=== PATIENT | male | born 1960 | race Caucasian/White ===

== ENCOUNTER 2021-12-01 09:00 | Inpatient (IN) | payer SELFPAY ==
[2021-12-01 09:00] VITALS: BMI 27.4
[2021-12-01 09:39] VITALS: BP 176/99; PULSE 97; RESP 18; TEMP 36.7; O2SAT 96
[2021-12-01 14:00] VITALS: BP 167/89; PULSE 83; RESP 18; TEMP 36.8; O2SAT 97
[2021-12-01 20:28] VITALS: BP 188/104; PULSE 83; RESP 17; O2SAT 97
[2021-12-02 06:00] VITALS: BP 189/97; PULSE 65; RESP 16; O2SAT 96
--- NOTE | 2021-12-02 07:50 | P.NPUHP_ITS ---
Providers/Chief Complaint Admitting Physician: Zach Mosley MD HPI NPU History of Present Illness Darci Ruiz is a 61 year old male who was admitted to an outside emergency department with the following report: Patient is a 61-year-old male with past medical history of depression presenting for suicidal ideation.? He says that he has been depressed for quite a while, at least since his passed last year.? She was on the hospice for an extended period before passing and he had a very difficult time with this.? He was told by the hospice staff that he needed care for his depression at the time but declined.? He has since lost his house and [place] and has been homeless, since coming to [place] where he is waiting on possible housing but keeps getting declined.? He has never had suicidal attempt before but does endorse suicidal ideation thoughts but never wanted to act on them like now.? Says his decreased has been talking to him recently and telling him not to hurt himself, she told him to come in today for help.? He says if he cannot get help feeling better he plans to walk into traffic, wait till I is green and then be like a deer or dog that runs into the highway .? He says that he wants to be with his and believes that if he does this he will get to hold her again. He was admitted to the neuropsychiatry unit for definitive treatment of these issues. He reports he has been depressed starting when his was put in the hospice program last September. She had cirrhosis of the liver, probably from drinking too much alcohol. They had been for 25 years but had lived together even before that. He has been increasingly depressed since she in December of last year. He continued to live in the same apartment up until about 2 months ago when he could not take it anymore and moved to [place] where he has been living in a [employer] [facility] for the last 2 months. He says that he can afford an apartment but he has not been able to find one. He gets a monthly check but has not applied for Medicaid because he does not feel that he needs it. He is willing to apply now. During that time living in the apartment he was smoking marijuana daily and drinking about 30 beers per day. When he moved to [place] he cut the alcohol to about 2 beers per day and has only smoked marijuana about 3 times in the last 2 months. He does have a medical marijuana card. He has been having thoughts of killing himself so that he could be with his . He talks with his periodically. She has told him lately that he should not kill himself. He has been talking with the dado operator at the [employer] and earlier this week he asked him to consider whether or not he would really go to [facility] if he killed himself. He had not really thought about that but knows that that is the [employer] teasing that if you kill yourself he would go to [facility]. He said that got him very depressed and he got intoxicated and that is when he was having more thoughts of actually killing himself. He says his thoughts are not that strong when he is not drunk. He denies prior psychiatric treatment. He refused when people in the hospice program recommended it to him last year. He has all of the symptoms of depression. He has low self-esteem, decreased concentration, irritability, hopelessness, helplessness, worthlessness, decreased appetite, decreased sleep, increased guilt and decreased energy and motivation. He agreed to start some Lexapro. He wants to go and live with his brother for a few days and then go to [place] where he believes that he can get an apartment. He is willing to get therapy. Meds NPU Home Medications Medication Instructions Recorded Confirmed Last Taken Type No Known Home Medications 12/01/21 12/01/21 Unknown History Allergies Allergy/AdvReac Type Severity Reaction Status Date / Time No Known Allergies Allergy Verified 12/01/21 11:14 Mental Status Exam MSE Comments: This is a 61-year-old overweight male who appears approximately his stated age and is in no acute distress. He has a full franklin and is fairly groomed in hospital scrubs. Eye contact was poor. He was pleasant and cooperative with the evaluation psychomotor activity mildly decreased. Speech is at a regular rate and rhythm, normal volume, good articulation, not pressured. Alert, oriented X3 Attention and concentration appears to be good. Memory is intact Mood is depressed. Affect is moderately dysphoric. Thought process is logical and goal-directed. Thought content: Denies auditory and visual hallucinations. No delusions or paranoia are noted. No current suicidal ideation but has had significant suicidal ideation very recently. He had a plan to wait until I read his screen and go into traffic hoping to be hit. He denies homicidal ideation. Fund of knowledge is average. Insight and judgment appear to be fair. Impulse control is poor. Vitals/I&O/Wt Last Vital Signs Temp 98.2 F 12/01/21 14:00 Pulse 65 12/02/21 06:00 Resp 16 12/02/21 06:00 BP 189/97 12/02/21 06:00 Pulse Ox 96 12/02/21 06:00 Weight last 48 hrs Weight 77.111 kg A&P Assessment and plan (1) Alcohol abuse: Status: Acute (2) Marijuana abuse: Status: Acute (3) Major depressive disorder: Status: Acute (4) Suicidal ideation: Status: Acute Plan This is a 61-year-old male with worsening depression since his last December alcohol and marijuana abuse and recent suicidal statements with a plan Plan: 1. Start Lexapro 10 mg daily and standard as needed medications. 2. Continue every 15 minute checks for safety. 3. Encourage individual, group and milieu therapies. 4. Encourage sober living treatment after discharge at the highest level of care to which he is willing to commit. 5. We will monitor for safety for himself in the community prior to discharge. Involuntary Hold Information 96 Hour Hold: 96 Hour Involuntary Admission: No Attestations NPU Medical Necessity Statement*: Inpatient hospitalization is medically necessary and the clinically appropriate intervention at this time. We will initiate medications and make changes as indicated. He will be in the hospital for over 2 midnights. Likely length of stay 4-6 days Coding Level of Care Code Acute Licensed Prosthetist for [employer] [facility] Diagnoses Alcohol abuse F10.10 Marijuana abuse F12.10 Major depressive disorder F32.9 Suicidal ideation R45.853
[2021-12-02] MEDS: lisinopril 10 mg Tablet PO (09:16)
[2021-12-02 09:59] VITALS: BP 155/94; PULSE 83
[2021-12-02 14:00] VITALS: BP 118/92; PULSE 89; RESP 16; TEMP 36.8; O2SAT 97
[2021-12-02 20:28] VITALS: BP 145/89; PULSE 110; RESP 20; TEMP 36.6; O2SAT 96
[2021-12-03 06:00] VITALS: BP 149/90; PULSE 82; RESP 20; TEMP 37; O2SAT 97
--- NOTE | 2021-12-03 07:58 | P.NPUPN_ITS ---
Subjective NPU Subjective: His blood pressure has been somewhat better since adding the lisinopril. It was 149/90 this morning. He does not have any side effects from the lisinopril. He agreed to take 10 mg today and probably increase to 20 mg tomorrow. He asked how much it would cost. The nurse was noted him to be quite short of breath. He could not really say a whole sentence without having to stop to breathe. He says that has been going on for some time. Whenever he gets up or walks very far he is short of breath. He thought it was just part of getting old. He also gets a nosebleed every 4 or 5 days. He needs to see a primary care transition mgr which he has not for years. We need to set that up for him tomorrow. He says that it is dawning on him that he really said he wanted to kill himself. He was reminded that he must have been thinking about it very seriously if he got so depressed and started drinking again after his dot etcher apprentice told him that he would go to [facility] if he killed himself. Mental Status Exam MSE Comments: This is a 61-year-old overweight male who appears approximately his stated age and is in no acute distress. He has a full franklin and is fairly groomed in hospital scrubs. Eye contact was good. He was pleasant and cooperative with the evaluation psychomotor activity mildly decreased. Speech is at a regular rate and rhythm, normal volume, good articulation, not pressured. Alert, oriented X3 Attention and concentration appears to be good. Memory is intact Mood is depressed. Affect is moderately dysphoric. Thought process is logical and goal-directed. Thought content: Denies auditory and visual hallucinations. No delusions or paranoia are noted. No current suicidal ideation but has had significant suicidal ideation very recently. He had a plan to wait until I read his screen and go into traffic hoping to be hit. He denies homicidal ideation. Fund of knowledge is average. Insight and judgment appear to be fair. Impulse control is poor. Cognition: Patient Appearance: Disheveled/Poor Hygiene Ability to Follow Directions: Good Patient Orientation (long list): Person, Place, Name and Age Comprehension Ability: Understands Concepts Hallucination Type: None Delusion Description: Not Present Thought Process: Appropriate Affect: Affect Description: Appropriate and Calm Behavior: Patient Behavior: Appropriate and Cooperative Speech Pattern: Appropriate and Clear Vitals/I&O/Wt Last Vital Signs Temp 98.6 F 12/03/21 06:00 Pulse 82 12/03/21 06:00 Resp 20 H 12/03/21 06:00 BP 149/90 12/03/21 06:00 Pulse Ox 97 12/03/21 06:00 Weight last 48 hrs Weight 77.111 kg Weight 77.111 kg A&P Assessment and plan (1) Alcohol abuse: Status: Acute (2) Marijuana abuse: Status: Acute (3) Major depressive disorder: Status: Acute (4) Suicidal ideation: Status: Acute Plan This is a 61-year-old male with worsening depression since his last December alcohol and marijuana abuse and recent suicidal statements with a plan Plan: 1. Start Lexapro 10 mg daily and standard as needed medications. Start lisinopril 10 mg for blood pressure. 2. Continue every 15 minute checks for safety. 3. Encourage individual, group and milieu therapies. 4. Encourage sober living treatment after discharge at the highest level of care to which he is willing to commit. 5. We will monitor for safety for himself in the community prior to discharge. 6. Need to set him up with a primary care transition mgr. Involuntary Hold Information 96 Hour Hold: 96 Hour Involuntary Admission: No Attestations NPU Medical Necessity Statement*: Inpatient hospitalization is medically necessary and the clinically appropriate intervention at this time. We will initiate medications and make changes as indicated. Coding Level of Care Code Acute Clinic Scheduler for Isha Bush Diagnoses Alcohol abuse F10.10 Marijuana abuse F12.10 Major depressive disorder F32.9 Suicidal ideation R45.852
[2021-12-03] MEDS: escitalopram 10 mg Tablet PO (07:59)
[2021-12-03] MEDS: lisinopril 10 mg Tablet PO (08:00)
[2021-12-03 13:38] VITALS: BP 131/82; PULSE 84; RESP 17; TEMP 36.8; O2SAT 96
[2021-12-03 21:37] VITALS: BP 144/87; PULSE 75; RESP 20; TEMP 36.4; O2SAT 93
[2021-12-04 06:00] VITALS: BP 150/83; PULSE 84; RESP 18; TEMP 36.5; O2SAT 96
[2021-12-04] MEDS: escitalopram 10 mg Tablet PO (07:44)
[2021-12-04] MEDS: lisinopril 20 mg Tablet PO (07:45)
[2021-12-04] MEDS: ondansetron 4 MG Tablet PO (08:39)
--- NOTE | 2021-12-04 08:40 | PC.NURSE ---
PRN ZOFRAN ZOFRAN 4 MG GIVEN PO FOR PT N/V. PT VOMITED ONCE A MODERATE TO LARGE AMOUNT. WILL CONTINUE TO MONITOR.
--- NOTE | 2021-12-04 11:30 | W.PM.NPUPNS ---
Subjective NPU Subjective: His blood pressure has been better with the lisinopril 10 mg. He has not been normal. He agreed to increase it to 20 mg today. I had to explain to him again that we needed to have him see a primary care doctor to manage his blood pressure and other health concerns. He said that he thought he could just get the lisinopril at [facility] and did not need to have his blood pressure monitored by a doctor. He is going to stay with his brother when he initially leaves here and then is hoping to get an apartment in [facility] where they are cheaper than [place] and they told him they had an opening. He said that his mood has been fairly good. He denies any recent suicidal ideation. Mental Status Exam MSE Comments: This is a 61-year-old overweight male who appears approximately his stated age and is in no acute distress. He has a full franklin and is fairly groomed in hospital scrubs. Eye contact was good. He was pleasant and cooperative with the evaluation psychomotor activity mildly decreased. Speech is at a regular rate and rhythm, normal volume, good articulation, not pressured. Alert, oriented X3 Attention and concentration appears to be good. Memory is intact Mood is better. Affect is euthymic. Thought process is logical and goal-directed. Thought content: Denies auditory and visual hallucinations. No delusions or paranoia are noted. Denies suicidal ideation since he has been in the hospital. He denies homicidal ideation. Fund of knowledge is average. Insight and judgment appear to be fair. Impulse control is only fair. Cognition: Patient Appearance: Disheveled/Poor Hygiene Ability to Follow Directions: Good Patient Orientation (long list): Person, Place, Name and Age Comprehension Ability: Understands Concepts Hallucination Type: None Delusion Description: Not Present Thought Process: Appropriate Affect: Affect Description: Calm Behavior: Patient Behavior: Cooperative Speech Pattern: Clear Vitals/I&O/Wt Last Vital Signs Temp 97.7 F 12/04/21 06:00 Pulse 84 12/04/21 06:00 Resp 18 12/04/21 06:00 BP 150/83 12/04/21 06:00 Pulse Ox 96 12/04/21 06:00 Weight last 48 hrs Weight 77.111 kg A&P Assessment and plan (1) Alcohol abuse: Status: Acute (2) Marijuana abuse: Status: Acute (3) Major depressive disorder: Status: Acute (4) Suicidal ideation: Status: Acute Plan This is a 61-year-old male with worsening depression since his last December alcohol and marijuana abuse and recent suicidal statements with a plan Plan: 1. Start Lexapro 10 mg daily and standard as needed medications. Increase lisinopril to 20 mg for blood pressure. 2. Continue every 15 minute checks for safety. 3. Encourage individual, group and milieu therapies. 4. Encourage sober living treatment after discharge at the highest level of care to which he is willing to commit. 5. We will monitor for safety for himself in the community prior to discharge. 6. Need to set him up with a primary home health care physician. Involuntary Hold Information 96 Hour Hold: 96 Hour Involuntary Admission: No Attestations NPU Medical Necessity Statement*: Inpatient hospitalization is medically necessary and the clinically appropriate intervention at this time. We will initiate medications and make changes as indicated. Coding Level of Care Code Acute Apple Picking Supervisor for Isha Bush Diagnoses Alcohol abuse F10.10 Marijuana abuse F12.10 Major depressive disorder F32.9 Suicidal ideation R45.850
[2021-12-04 13:59] VITALS: BP 135/82; PULSE 89; RESP 16; TEMP 36.7; O2SAT 94
[2021-12-04 20:29] VITALS: BP 124/63; PULSE 77; RESP 20; TEMP 37.1; O2SAT 98
[2021-12-05 06:00] VITALS: BP 119/78; PULSE 82; RESP 18; TEMP 36.9; O2SAT 95
--- NOTE | 2021-12-05 06:57 | P.NPUDS_ITS ---
Diagnoses at Discharge Discharge Diagnosis (1) Alcohol abuse: Status: Acute (2) Marijuana abuse: Status: Acute (3) Major depressive disorder: Status: Acute (4) Suicidal ideation: Status: Acute Reason for Visit Reason for Visit: Brief History: History of Present Illness Darci Ruiz is a 61 year old male who was admitted to an outside emergency department with the following report: Patient is a 61-year-old male with past medical history of depression presenting for suicidal ideation.? He says that he has been depressed for quite a while, at least since his passed last year.? She was on the hospice for an extended period before passing and he had a very difficult time with this.? He was told by the hospice staff that he needed care for his depression at the time but declined.? He has since lost his house and [place] and has been homeless, since coming to [place] where he is waiting on possible housing but keeps getting declined.? He has never had suicidal attempt before but does endorse suicidal ideation thoughts but never wanted to act on them like now.? Says his decreased has been talking to him recently and telling him not to hurt himself, she told him to come in today for help.? He says if he cannot get help feeling better he plans to walk into traffic, wait till I is green and then be like a deer or dog that runs into the highway .? He says that he wants to be with his and believes that if he does this he will get to hold her again. He was admitted to the neuropsychiatry unit for definitive treatment of these issues.? He reports he has been depressed starting when his was put in the hospice program last September.? She had cirrhosis of the liver, probably from drinking too much alcohol.? They had been for 25 years but had lived together even before that.? He has been increasingly depressed since she in December of last year.? He continued to live in the same apartment up until about 2 months ago when he could not take it anymore and moved to [place] where he has been living in a [facility] for the last 2 months.? He says that he can afford an apartment but he has not been able to find one.? He gets a monthly check but has not applied for Medicaid because he does not feel that he needs it.? He is willing to apply now.? During that time living in the apartment he was smoking marijuana daily and drinking about 30 beers per day.? When he moved to [place] he cut the alcohol to about 2 beers per day and has only smoked marijuana about 3 times in the last 2 months.? He does have a medical marijuana card.? He has been having thoughts of killing himself so that he could be with his .? He talks with his periodically.? She has told him lately that he should not kill himself.? He has been talking with the corporate securities research analyst at the [employer] and earlier this week he asked him to consider whether or not he would really go to [facility] if he killed himself.? He had not really thought about that but knows that that is the [employer] teasing that if you kill yourself he would go to [facility].? He said that got him very depressed and he got intoxicated and that is when he was having more thoughts of actually killing himself.? He says his thoughts are not that strong when he is not drunk.? He denies prior psychiatric treatment.? He refused when people in the hospice program recommended it to him last year.? He has all of the symptoms of depression.? He has low self-esteem, decreased concentration, irritability, hopelessness, helplessness, worthlessness, decreased appetite, decreased sleep, increased guilt and decreased energy and motivation.? He agreed to start some Lexapro.? He wants to go and live with his brother for a few days and then go to [place] where he believes that he can get an apartment.? He is willing to get therapy. Hospital Course Hospital Course He slowly acclimated to the individual, group and milieu therapies provided. He was started on Lexapro 10 mg. He was started on lisinopril 10 mg and increased to 20 mg because of high blood pressure. His blood pressure was running about 185/100. It was much improved and he did not have any side effects. He was encouraged many times that he must get medical follow-up for his blood pressure and shortness of breath. He tolerated these doses and showed steady improvement during his stay. He was able to contract for safety outside hospital prior to discharge. During the hospitalization, patient had routine laboratory studies which were within normal limits except for few outliers. Additionally there was a general medical evaluation which was also within normal limits and revealed no new acute processes. Discharge Summary: At the time of discharge, lethality was denied. Mood and anxiety were well managed. Patient endorsed a plan to follow-up with the aftercare recommendations of the treatment team. Patient was evaluated and deemed to be absent credible lethality, and had achieved the maximum benefit from an inpatient hospitalization, so was discharged. Involuntary Hold Information 96 Hour Hold: 96 Hour Involuntary Admission: No Mental Status Exam MSE Comments: This is a 61-year-old overweight male who appears approximately his stated age and is in no acute distress. He has a full franklin and is fairly groomed in hospital scrubs. Eye contact was good. He was pleasant and cooperative with the evaluation psychomotor activity mildly decreased. Speech is at a regular rate and rhythm, normal volume, good articulation, not pressured. Alert, oriented X3 Attention and concentration appears to be good. Memory is intact Mood is better. Affect is euthymic. Thought process is logical and goal-directed. Thought content: Denies auditory and visual hallucinations. No delusions or paranoia are noted. Denies suicidal ideation since he has been in the hospital. He denies homicidal ideation. Fund of knowledge is average. Insight and judgment appear to be fair. Impulse control is only fair. Cognition: Patient Appearance: Disheveled/Poor Hygiene Ability to Follow Directions: Good Patient Orientation (long list): Person, Place, Name and Age Comprehension Ability: Understands Concepts Hallucination Type: None Delusion Description: Not Present Thought Process: Appropriate Affect: Affect Description: Calm Behavior: Patient Behavior: Cooperative Speech Pattern: Clear Discharge Data Vitals: Last Vital Signs Temp 98.4 F 12/05/21 06:00 Pulse 82 12/05/21 06:00 Resp 18 12/05/21 06:00 BP 119/78 12/05/21 06:00 Pulse Ox 95 12/05/21 06:00 Discharge Plan Discharge Patient Disposition: Home Condition: Stable Prescriptions: New lisinopril 20 mg Tablet 20 mg PO DAILY 30 Days Qty: 30 1RF escitalopram oxalate 10 mg Tablet 10 mg PO DAILY 30 Days Qty: 30 1RF Discharge Orders: Discharge Order (Routine); Ordered 12/05/21 Ordered By: Zach Mosley Referrals: [facility] [Outside] - 01/24/22 11:30 am (Initial assessment schedule but you are on a cancelation list to try and get you in sooner. ) Nelli Serrano MD [Physician] - 12/13/21 2:00 pm (First appointment. Come in a little early to fill out paper work. ) Discharge Diet: Regular Discharge Activity: Resume usual activity Patient Instructions: Opioid Safety Discharge Attestations NPU Time Spent in Discharge Care*: less than 30 min Specific Discharge Activities: Specific discharge activities: educating patient, discussing with social work case manager/social workers/dc planners, documenting/other paperwork and evaluating patient/reviewing data Coding Level of Care Code Acute [facility] DC note Diagnoses Alcohol abuse F10.10 Marijuana abuse F12.10 Major depressive disorder F32.9 Suicidal ideation R45.85
[2021-12-05 07:33] VITALS: BP 119/78; PULSE 82; RESP 18; TEMP 36.9; O2SAT 95
[2021-12-05] MEDS: lisinopril 20 mg Tablet PO (08:11)
[2021-12-05] MEDS: escitalopram 10 mg Tablet PO (08:11)
== END 2021-12-05 09:16 | disposition home or self-care (01) | DRG 881 ==
PROVIDERS: Admitting Provider Psychiatry & Neurology Psychiatry; Visit Provider Psychiatry & Neurology Psychiatry
DX: F32.9 Major depressive disorder, single episode, unspecified (principal); R45.851 Suicidal ideations; Z59.01 Sheltered homelessness; Z63.4 Disappearance and death of family member; F10.10 Alcohol abuse, uncomplicated
CPT/HCPCS: 97165; Q0162

== ENCOUNTER 2022-10-14 12:35 | Emergency (ER) | payer SELFPAY ==
[2022-10-14 12:43] VITALS: BP 218/119; PULSE 80; RESP 16; O2SAT 96
--- NOTE | 2022-10-14 12:43 | CTR_ITS ---
PROCEDURE INFORMATION: Exam: CT Head Without Contrast Exam date and time: 10/14/2022 12:52 PM Age: 61 years old Clinical indication: Other: General weakness; Additional info: Dizziness TECHNIQUE: Imaging protocol: Computed tomography of the head without contrast. Radiation optimization: All CT scans at this facility use at least one of these dose optimization techniques: automated exposure control; mA and/or kV adjustment per patient size (includes targeted exams where dose is matched to clinical indication); or iterative reconstruction. REPORTING DATA: Count of CT and Cardiac NM exams in prior 12 months: This patient has received 0 known CTs and 0 known cardiac nuclear medicine studies in the 12 months prior to the current study. COMPARISON: No relevant prior studies available. RADIATION DOSE METRICS: Total DLP (mGy-cm): 1305.09 FINDINGS: Brain: There is minimal hypoattenuation in the periventricular white matter suggesting chronic microvascular disease. No significant cerebral volume loss. No mass effect. There is no acute intracranial hemorrhage. Cerebral ventricles: There is no significant ventricular dilation. The basal cisterns are unremarkable. Paranasal sinuses: Mucosal thickening in the maxillary and ethmoid sinuses, also in the sphenoid sinus. No air-fluid levels. Mastoid air cells: The mastoid air cells are clear. Bones/joints: The calvarium is intact. Soft tissues: The visible extracranial soft tissues are unremarkable. CT/CT head wo con* [id number] IMPRESSION: No acute intracranial abnormality.
--- NOTE | 2022-10-14 12:43 | XRR_ITS ---
PROCEDURE INFORMATION: Exam: XR Chest Exam date and time: 10/14/2022 12:47 PM Age: 61 years old Clinical indication: Other: General weakness; Additional info: Cough TECHNIQUE: Imaging protocol: Radiologic exam of the chest. Views: 1 view. COMPARISON: No relevant prior studies available. FINDINGS: Lungs: Lungs are clear. Pleural spaces: There is no pleural effusion or pneumothorax. Heart/Mediastinum: Cardiomediastinal contours are unremarkable. Bones/joints: Bones are unremarkable. XR/XR chest 1V portable [id number] IMPRESSION: No acute findings.
[2022-10-14 13:03] LABS: Basophils # 0.1 10^3/uL (0.0-0.1); Basophils % 1.2 %; Eosinophils # 0.4 10^3/uL (0.0-0.8); Eosinophils % 6.1 %; Hematocrit 54.4 % (42.0-52.0); Hemoglobin 18.2 g/dL (11.7-16.6); Lymphocytes % 29.1 %; Mean Corpuscular HGB Conc 33.5 g/dL (30.0-36.0); Mean Corpuscular Volume 95.6 fl (80-94); Mean Platelet Volume 10.6 fL (7.4-10.4); Monocytes # 0.5 10^3/uL (0.2-0.9); Monocytes % 7.1 %; Neutrophils # 3.79 10^3/uL (1.8-7.7); Neutrophils % 55.9 %; Nucleated Red Blood Cells % 0 %; Platelet Count 220 10^3/cmm (130-400); Red Blood Count 5.69 10^6/uL (4.1-5.3); Red Cell Distribution Width 12.6 % (12.1-15.1); White Blood Count 6.8 10^3/uL (4.0-10.0)
[2022-10-14] MEDS: meclizine 25 mg tablet 50 MG PO (13:03)
[2022-10-14] MEDS: hyDRALAzine 20 mg/mL INJ 1 mL 10 MG IVP (13:03)
--- NOTE | 2022-10-14 13:09 | ED_ITS ---
HPI - Dizziness General: Chief Complaint: Dizziness Stated Complaint: WEAK; DIZZY Time Seen by Provider: 10/14/22 12:39 Source: patient and EMS Mode of arrival: EMS Limitations: no limitations History of Present Illness: HPI Narrative: 61-year-old male who states that this morning after he drank coffee he started having some dizziness he states when he has quick movements or stands up he feels like the room spinning he also has vomiting this morning received Zofran in route he states he feels improved he denies any headache he is hypertensive here he states that he believes he has chronic hypertensive but never sees a primary care doctor. He does drink daily. He denies any chest pain he states he has had a chronic cough for the last 5 to 6 months. Associated symptoms: Reports nausea and vomiting; Denies chest pain or chills Review of Systems Const: Denies: fever(s), chills, body aches or change in appetite Eyes: Denies: blurry vision or eye discomfort ENMT: Denies: throat pain or dental pain Card: Denies: chest pain Resp: Reports: non-productive cough GI: Reports: nausea and vomiting : Denies: dysuria Musc: Denies: neck pain or back pain Skin/Breast: Denies: rash Neuro: Reports: dizziness Psych: Denies: depression Harrison/Lymph: Denies: easy bruising All/Imm: Denies: urticaria PFSH ED PFSH: Medical History (Updated 10/14/22 @ 13:54 by Susan Whitley MD) No pertinent past medical history Social History (Updated 10/14/22 @ 13:11 by Susan Whitley MD) Alcohol intake: current Physical Exam Const: COMMON NORMALS: no acute distress, patient oriented x3 and healthy appearing HENMT: COMMON NORMALS: normocephalic and atraumatic HEAD & SCALP: normocephalic and atraumatic Eye: COMMON NORMALS: Equal, round and reactive pupils present and EOMs intact bilaterally PUPIL: Yes Equal, round and reactive pupils present Neck/C-Spine: COMMON NORMALS: full ROM and supple Chest: COMMONS NORMALS: normal inspection of the chest and normal palpation of entire chest wall Resp: COMMON NORMALS: normal respiratory effort, No retractions, No use of accessory muscles and clear to auscultation bilaterally AUSCULTATION: clear to auscultation bilaterally Cardio: COMMON NORMALS: regular rate, regular rhythm and No murmurs present (Cardio) RATE: regular rate RHYTHM: regular rhythm GI: COMMON NORMALS: Normal to inspection, nondistended, normoactive bowel sounds present, Soft to palpation, non-tender and no masses PALPATION: Yes Soft to palpation Extremity: COMMON NORMALS: normal to inspection and full ROM Neuro: COMMON NORMALS: patient oriented x3, moves all extremities and no focal motor deficits CRANIAL NERVES: Yes CN normal except as noted SPEECH: speech normal GAIT: Yes Normal gait present MOTOR EXAM: 5/5 motor strength present throughout Psych: COMMON NORMALS: mental status grossly normal, Normal thought process present and cooperative THOUGHT PROCESS: Normal thought process present Skin: COMMON NORMALS: no rashes or lesions noted and no wounds GENERAL SKIN EXAM: no rashes or lesions noted Course Vital Signs: Vital signs: Vital Signs Pulse Rate 80 10/14/22 12:43 Respiratory Rate 16 10/14/22 12:43 Blood Pressure 218/119 10/14/22 12:43 Pulse Oximetry 96 10/14/22 12:43 Oxygen Delivery Me thod 10/14/22 12:43 MDM - Dizziness Medical Decision Making Patient presents here with vertigo is likely peripheral in nature its resolved here after meclizine he is able ambulate without any difficulty CT head is normal he is able to tolerate p.o.'s well he is hypertensive here we will prescribe him metoprolol along with Antivert and Zofran for home we will try to get him a primary care doctor as well he is to return if worsening he understands agrees to plan. Lab Data 10/14/22 12:35 10/14/22 12:35 Radiology Impressions Chest X-Ray 10/14/22 12:43 IMPRESSION: No acute findings. Head CT 10/14/22 12:43 IMPRESSION: No acute intracranial abnormality. Laboratory Results WBC 6.8 10^3/uL (4.0-10.0) 10/14/22 12:35 RBC 5.69 10^6/uL (4.1-5.3) H 10/14/22 12:35 Hgb 18.2 g/dL (11.7-16.6) H 10/14/22 12:35 Hct 54.4 % (42.0-52.0) H 10/14/22 12:35 MCV 95.6 fl (80-94) H 10/14/22 12:35 MCH 32.0 pg (28.0-34.0) 10/14/22 12:35 MCHC 33.5 g/dL (30.0-36.0) 10/14/22 12:35 RDW 12.6 % (12.1-15.1) 10/14/22 12:35 Plt Count 220 10^3/cmm (130-400) 10/14/22 12:35 MPV 10.6 fL (7.4-10.4) H 10/14/22 12:35 Neut % (Auto) 55.9 % 10/14/22 12:35 Lymph % (Auto) 29.1 % 10/14/22 12:35 [place] % (Auto) 7.1 % 10/14/22 12:35 Eos % (Auto) 6.1 % 10/14/22 12:35 Baso % (Auto) 1.2 % 10/14/22 12:35 Neut # (Auto) 3.79 10^3/uL (1.8-7.7) 10/14/22 12:35 Lymph # (Auto) 2.0 10^3/uL (0.8-4.8) 10/14/22 12:35 [place] # (Auto) 0.5 10^3/uL (0.2-0.9) 10/14/22 12:35 Eos # (Auto) 0.4 10^3/uL (0.0-0.8) 10/14/22 12:35 Baso # (Auto) 0.1 10^3/uL (0.0-0.1) 10/14/22 12:35 Nucleated RBC % (auto) 0 % 10/14/22 12:35 Nucleated RBCs # 0.0 /100WBC 10/14/22 12:35 Sodium 137 mmol/L (136-145) 10/14/22 12:35 Potassium 4.5 mmol/L (3.5-5.1) 10/14/22 12:35 Chloride 98 mmol/L (98-107) 10/14/22 12:35 Carbon Dioxide 29 mmol/L (22-29) 10/14/22 12:35 Anion Gap 14.5 (5-19) 10/14/22 12:35 BUN 12 mg/dL (8-23) 10/14/22 12:35 Creatinine 0.8 mg/dL (0.7-1.2) 10/14/22 12:35 GFR Calculation 97.6 mL/min (90-130) 10/14/22 12:35 Glucose 106 mg/dL (65-115) 10/14/22 12:35 Calculated Osmolality 284 mOsm/kg (285-295) L 10/14/22 12:35 Calcium 9.6 mg/dL (8.5-10.5) 10/14/22 12:35 Total Bilirubin 0.8 mg/dL (0.15-1.2) 10/14/22 12:35 AST 51 U/L (0-40) H 10/14/22 12:35 ALT 61 U/L (0-41) H 10/14/22 12:35 Alkaline Phosphatase 81 U/L (40-130) 10/14/22 12:35 Total Protein 8.9 g/dL (6.6-8.7) H 10/14/22 12:35 Albumin 4.9 g/dL (3.5-5.2) 10/14/22 12:35 Globulin 4.0 g/dL (1.3-4.6) 10/14/22 12:35 EKG Data EKG 1: I personally reviewed and interpreted this EKG as follows: EKG interpretation date: 10/14/22 EKG interpretation time: 13:25 Interpretation: nsr hr [address] or t wave abnormalities qrs 76 qtc 397 Discharge Plan Discharge Patient Disposition: Home Clinical Impression: Vertigo, Vomiting, Hypertension Prescriptions: New ondansetron 4 mg tablet,disintegrating 4 mg PO Q6H PRN (Reason: nausea and vomiting) Qty: 14 0RF Antivert 50 mg tablet 50 mg PO BID PRN (Reason: dizziness) Qty: 20 0RF metoprolol succinate 50 mg tablet extended release 24 hr 50 mg PO DAILY Qty: 30 0RF No Action lisinopril 20 mg Tablet 20 mg PO DAILY 30 Days Qty: 30 1RF escitalopram oxalate 10 mg Tablet 10 mg PO DAILY 30 Days Qty: 30 1RF Discharge Orders: Discharge ED (Routine); Ordered 10/14/22 Ordered By: Susan Whitley Discharge Diet: Advance as tolerated Discharge Activity: Resume usual activity Patient Instructions: Vertigo (ED), Hypertension (ED) Coding Level of Care Code ED Nuclear Pharmacist for Isha Bush
[2022-10-14 13:14] LABS: Alanine Aminotransferase 61 U/L (0-41); Albumin Level 4.9 g/dL (3.5-5.2); Alkaline Phosphatase 81 U/L (40-130); Anion Gap 14.5 (5-19); Aspartate Amino Transferase 51 U/L (0-40); Blood Urea Nitrogen 12 mg/dL (8-23); Calcium 9.6 mg/dL (8.5-10.5); Carbon Dioxide 29 mmol/L (22-29); Chloride 98 mmol/L (98-107); Glomerular Filtration Rate 97.6 mL/min (90-130); Glucose 106 mg/dL (65-115); Osmolality Calculated 284 mOsm/kg (285-295); Potassium 4.5 mmol/L (3.5-5.1); Sodium 137 mmol/L (136-145); Total Bilirubin 0.8 mg/dL (0.15-1.2); Total Protein 8.9 g/dL (6.6-8.7)
--- NOTE | 2022-10-14 13:25 | ECG_ITS ---
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
[2022-10-14 14:17] VITALS: BP 198/106; PULSE 89; RESP 18; O2SAT 98
--- NOTE | 2022-10-18 11:18 | DCPLANNER ---
03..23 - TCM called patient due to no primary care physician - patient stated that he does not want a primary care at this time.
== END 2022-10-14 14:31 | disposition home or self-care (01) ==
PROVIDERS: Emergency Provider Emergency Medicine
DX: R42 Dizziness and giddiness (principal); I10 Essential (primary) hypertension; R11.11 Vomiting without nausea
CPT/HCPCS: 70450; 71045; 80053; 85025; 93005; 96374; 99285; J0360; J8597

== ENCOUNTER 2023-12-12 22:21 | Inpatient (IN) | payer MEDICARE, MEDICAID, SELFPAY ==
[2023-12-12 22:22] VITALS: BP 174/129; PULSE 93; RESP 18; TEMP 37.1; O2SAT 96; BMI 24.2
--- NOTE | 2023-12-12 22:22 | XRR_ITS ---
PROCEDURE INFORMATION: Exam: XR Chest Exam date and time: 12/12/2023 10:49 PM Age: 63 years old Clinical indication: Angina; Additional info: Cp TECHNIQUE: Imaging protocol: Radiologic exam of the chest. Views: 1 view. COMPARISON: CR XR chest 1V portable [id number] 10/14/2022 12:47 PM FINDINGS: Lungs: Unremarkable. No consolidation. Pleural spaces: Unremarkable. No pleural effusion. No pneumothorax. Heart/Mediastinum: Unremarkable. No cardiomegaly. Bones/joints: Moderate degenerative disease of bilateral acromioclavicular joints. XR/XR chest 1V portable [id number] IMPRESSION: No acute cardiopulmonary process.
--- NOTE | 2023-12-12 22:25 | CTR_ITS ---
PROCEDURE INFORMATION: Exam: CT Abdomen And Pelvis With Contrast Exam date and time: 12/12/2023 11:30 PM Age: 63 years old Clinical indication: Abdominal pain; Additional info: Abd pain TECHNIQUE: Imaging protocol: Computed tomography of the abdomen and pelvis with contrast. Radiation optimization: All CT scans at this facility use at least one of these dose optimization techniques: automated exposure control; mA and/or kV adjustment per patient size (includes targeted exams where dose is matched to clinical indication); or iterative reconstruction. Contrast material: OMNI 350; Contrast volume: 100 ml; Contrast route: INTRAVENOUS (IV); COMPARISON: CR (CHEST, ) 12/12/2023 10:49 PM RADIATION DOSE METRICS: Total DLP (mGy-cm): 585.9 FINDINGS: Lungs: There are multiple bilateral lower lobe calcified granulomas. Liver: Normal. No mass. Gallbladder and bile ducts: Normal. No calcified stones. No ductal dilation. Pancreas: Normal. No ductal dilation. Spleen: Normal. No splenomegaly. Adrenal glands: Normal. No mass. Kidneys and ureters: Multiple small left simple cysts measuring up to 1.1 cm in the interpolar region of the left kidney. Stomach and bowel: Unremarkable. No obstruction. No mucosal thickening. Appendix: No evidence of appendicitis. Intraperitoneal space: Unremarkable. No free air. No significant fluid collection. Vasculature: Vascular calcifications. Pelvic phleboliths. Lymph nodes: Unremarkable. No enlarged lymph nodes. Urinary bladder: Unremarkable as visualized. Reproductive: Prostate gland calcifications. Bones/joints: Mild curvature of the lumbar spine convex to the right. Mild degenerative of bilateral hip joints. Multilevel mild degenerative disease of the lumbar spine with anterior osteophytes. Mild retrolisthesis of L2 over L3. Soft tissues: Fat containing umbilical hernia. CT/CT abdomen pelvis w con* [id number] IMPRESSION: No acute intra-abdominal process. COMMENTS: Consistent with the [place] [employer]'s Incidental Findings Committee white paper (J Am Luis Radiol 2018): Any incidental renal lesion less than 1 cm or classified as too small to characterize, or any incidental cystic renal lesion characterized as simple-appearing, is likely benign. No follow-up imaging is recommended for these lesions per consensus recommendations based on imaging criteria.
--- NOTE | 2023-12-12 22:26 | ED_ITS ---
HPI - Abdominal Pain 2 General: Chief Complaint: Abdominal Pain Stated Complaint: abdominal pressure Time Seen by Provider: 12/12/23 22:22 Source: patient and EMS Mode of arrival: EMS Limitations: no limitations History of Present Illness: 63-year-old male states he has had abdom inal issues for years he states he has been having some worsening epigastric pain radiates into his chest that is been going on for last 2 to 3 days. Denies any fever denies any vomiting diarrhea. Associated Symptoms: Denies chills, diarrhea, dysuria, fever(s), nausea and vomiting Review of Systems 2 Const: Denies: fever(s), chills, body aches or change in appetite ENMT: Denies: throat pain or dental pain Card: Reports: chest pain Resp: Denies: dyspnea GI: Reports: abdominal pain; Denies: nausea, vomiting or diarrhea : Denies: dysuria Musc: Denies: neck pain or back pain Skin/Breast: Denies: rash Neuro: Denies: headache(s) PFSH ED 2 PFSH: Medical History No pertinent past medical history Social History Alcohol intake: current Physical Exam 2 Const: COMMON NORMALS: no acute distress, patient oriented x3 and healthy appearing HENMT: COMMON NORMALS: normocephalic and atraumatic HEAD & SCALP: n ormocephalic and atraumatic Eye: COMMON NORMALS: Equal, round and reactive pupils present and EOMs intact bilaterally PUPIL: Yes Equal, round and reactive pupils present Neck/C-Spine: COMMON NORMALS: full ROM and supple Chest: COMMONS NORMALS: normal inspection of the chest and normal palpation of entire chest wall Resp: COMMON NORMALS: normal respiratory effort, No retractions, No use of accessory muscles and clear to auscultation bilaterally AUSCULTATION: clear to auscultation bilaterally Cardio: COMMON NORMALS: regular rate, regular rhythm and No murmurs present (Cardio) RATE: regular rate RHYTHM: regular rhythm GI: COMMON NORMALS: Normal to inspection, nondistended, normoactive bowel sounds present, Soft to palpation and no masses PALPATION: Yes Soft to palpation OTHER: epigastric tenderness Extremity: COMMON NORMALS: normal to inspection and full ROM Neuro: COMMON NORMALS: patient oriented x3, moves all extremities and no focal motor deficits Psych: COMMON NORMALS: mental status grossly normal, Normal thought process present and cooperative THOUGHT PROCESS: Normal thought process present Skin: COMMON NORMALS: no rashes or lesions noted and no wounds GENERAL SKIN EXAM: no rashes or lesions noted Course 2 Vital Signs: Vital signs: Vital Signs Temperature 98.8 F 12/12/23 22:22 Pulse Rate 84 12/13/23 00:54 Respiratory Rate 22 H 12/13/23 00:54 Blood Pressure 146/92 12/13/23 00:54 Pulse Oximetry 98 12/13/23 00:54 Oxygen Delivery Me thod Room Air 12/13/23 00:54 MDM - Abdominal Pain Medical Decision Making Patient presents here with abdominal pain is found to pancreatitis lipase at 5000 and required multiple doses of pain meds a spoke to the hospitalist will admit at this time. Medical Records I reviewed the patient's medical records. Lab Data I reviewed the patient's lab results. 12/12/23 22:15 12/12/23 22:15 Labs/Radiology: Radiology Impressions Chest X-Ray 12/12/23 22:22 IMPRESSION: No acute cardiopulmonary process. Abdomen/Pelvis CT 12/12/23 22:25 IMPRESSION: No acute intra-abdominal process. COMMENTS: Consistent with the [place] [employer]'s Incidental Findings Committee white paper (J Am Luis Radiol 2018): Any incidental renal lesion less than 1 cm or classified as too small to characterize, or any incidental cystic renal lesion characterized as simple-appearing, is likely benign. No follow-up imaging is recommended for these lesions per consensus recommendations based on imaging criteria. Laboratory Results WBC 9.07 10^3/uL (3.29-11.43) 12/12/23 22:15 RBC 5.47 10^6/uL (3.85-5.65) 12/12/23 22:15 Hgb 18.00 g/dL (11.27-16.99) H 12/12/23 22:15 Hct 51.6 % (37-53) 12/12/23 22:15 MCV 94.3 fl (82-101) 12/12/23 22:15 MCH 32.9 pg (27-33) 12/12/23 22:15 MCHC 34.9 g/dL (30-55) 12/12/23 22:15 RDW 12.4 % (12.1-15.1) 12/12/23 22:15 Plt Count 213 10^3/cmm (157-399) 12/12/23 22:15 MPV 9.7 fL (7.4-10.4) 12/12/23 22:15 Neut % (Auto) 69.9 % 12/12/23 22:15 Lymph % (Auto) 19.7 % 12/12/23 22:15 [place] % (Auto) 6.5 % 12/12/23 22:15 Eos % (Auto) 3.1 % 12/12/23 22:15 Baso % (Auto) 0.4 % 12/12/23 22:15 Neut # (Auto) 6.33 10^3/uL (1.8-7.7) 12/12/23 22:15 Lymph # (Auto) 1.8 10^3/uL (0.8-4.8) 12/12/23 22:15 [place] # (Auto) 0.6 10^3/uL (0.2-0.9) 12/12/23 22:15 Eos # (Auto) 0.3 10^3/uL (0.0-0.8) 12/12/23 22:15 Baso # (Auto) 0.0 10^3/uL (0.0-0.1) 12/12/23 22:15 Nucleated RBC % (auto) 0 % 12/12/23 22:15 Nucleated RBCs # 0.0 /100WBC 12/12/23 22:15 PT 13.40 SECONDS (12.1-14.9) 12/12/23 22:15 INR 0.99 (0.8-1.2) 12/12/23 22:15 Sodium 135 mmol/L (136-145) L 12/12/23 22:15 Potassium 4.6 mmol/L (3.5-5.1) 12/12/23 22:15 Chloride 98 mmol/L (98-107) 12/12/23 22:15 Carbon Dioxide 25 mmol/L (22-29) 12/12/23 22:15 Anion Gap 16.6 (5-19) 12/12/23 22:15 BUN 12 mg/dL (8-23) 12/12/23 22:15 Creatinine 0.8 mg/dL (0.7-1.2) 12/12/23 22:15 GFR Calculation 97.0 mL/min (90-130) 12/12/23 22:15 Glucose 51 mg/dL (65-115) L 12/12/23 22:15 Calculated Osmolality 277 mOsm/kg (285-295) L 12/12/23 22:15 Calcium 9.4 mg/dL (8.5-10.5) 12/12/23 22:15 Total Bilirubin 0.7 mg/dL (0.15-1.2) 12/12/23 22:15 AST 45 U/L (0-40) H 12/12/23 22:15 ALT 50 U/L (0-41) H 12/12/23 22:15 Alkaline Phosphatase 97 U/L (40-130) 12/12/23 22:15 Troponin T Baseline 11 ng/L (0-15) 12/12/23 22:15 Troponin T 120 Minute 10.78 ng/L (0-15) 12/13/23 00:16 Delta Troponin T -0.22 ABS# (0-10) L 12/13/23 00:16 Total Protein 8.4 g/dL (6.6-8.7) 12/12/23 22:15 Albumin 4.8 g/dL (3.5-5.2) 12/12/23 22:15 Globulin 3.6 g/dL (1.3-4.6) 12/12/23 22:15 Lipase 5021 U/L (13-60) H 12/12/23 22:15 All radiology interpretation(s) finalized by discharge EKG Data EKG 1: I personally reviewed and interpreted this EKG as follows: EKG interpretation date: 12/12/23 EKG interpretation time: 22:33 Interpretation: nsr hr [address] or t wave abnormalities qrs 70 [id number] Discharge Plan Discharge Patient Disposition: Admitted As Inpatient Clinical Impression: Pancreatitis Condition: Stable Prescriptions: No Action lisinopril 20 mg Tablet 20 mg PO DAILY 30 Days Qty: 30 1RF escitalopram oxalate 10 mg Tablet 10 mg PO DAILY 30 Days Qty: 30 1RF ondansetron 4 mg tablet,disintegrating 4 mg PO Q6H PRN (Reason: nausea and vomiting) Qty: 14 0RF Antivert 50 mg tablet 50 mg PO BID PRN (Reason: dizziness) Qty: 20 0RF metoprolol succinate 50 mg tablet extended release 24 hr 50 mg PO DAILY Qty: 30 0RF Coding Level of Care Code ED Data Entry Processor for Isha Bush
--- NOTE | 2023-12-12 22:33 | ECG_ITS ---
[facility] Test Date: 2023-12-12 Pat Name: Darci Ruiz Department: Room: Gender: Male Tanning Solution Maker: : 1960 Requested By: Susan Whitley Order Number: [id number] Luis Manuel MD: Navjot Smith M.D. Measurements Intervals [place] Rate: 89 P: 63 [place]: 128 QRS: 23 QRSD: 70 T: 74 QT: 338 QTc: 413 Interpretive Statements SINUS RHYTHM SEPTAL MYOCARDIAL INFARCTION , PROBABLY OLD [40+ ms Q WAVE IN V1/V2] Compared to ECG 10/14/2022 13:25:01 Myocardial infarct finding now present Electronically Signed On 12-13-2023 0:09:56 CDT by Navjot Smith M.D. [id number]
[2023-12-12 22:38] VITALS: BP 174/129; PULSE 89; RESP 18; O2SAT 97
[2023-12-12 22:41] LABS: Basophils % 0.4 %; Eosinophils # 0.3 10^3/uL (0.0-0.8); Eosinophils % 3.1 %; Hematocrit 51.6 % (37-53); Lymphocytes # 1.8 10^3/uL (0.8-4.8); Lymphocytes % 19.7 %; Mean Corpuscular HGB Conc 34.9 g/dL (30-55); Mean Corpuscular Hemoglobin 32.9 pg (27-33); Mean Corpuscular Volume 94.3 fl (82-101); Mean Platelet Volume 9.7 fL (7.4-10.4); Monocytes # 0.6 10^3/uL (0.2-0.9); Monocytes % 6.5 %; Neutrophils # 6.33 10^3/uL (1.8-7.7); Neutrophils % 69.9 %; Nucleated Red Blood Cells % 0 %; Platelet Count 213 10^3/cmm (157-399); Red Blood Count 5.47 10^6/uL (3.85-5.65); Red Cell Distribution Width 12.4 % (12.1-15.1); White Blood Count 9.07 10^3/uL (3.29-11.43)
[2023-12-12] MEDS: labetalol 5 mg/mL SDV 20mL 10 MG IVP (22:44)
[2023-12-12 22:53] LABS: INR 0.99 (0.8-1.2)
[2023-12-12 22:58] LABS: Troponin(5th) Baseline 11 ng/L (0-15)
[2023-12-12 23:00] LABS: Alanine Aminotransferase 50 U/L (0-41); Albumin Level 4.8 g/dL (3.5-5.2); Alkaline Phosphatase 97 U/L (40-130); Anion Gap 16.6 (5-19); Aspartate Amino Transferase 45 U/L (0-40); Blood Urea Nitrogen 12 mg/dL (8-23); Calcium 9.4 mg/dL (8.5-10.5); Carbon Dioxide 25 mmol/L (22-29); Chloride 98 mmol/L (98-107); Creatinine Clr Calc Pharmacy 85.2807; Globulin 3.6 g/dL (1.3-4.6); Glucose 51 mg/dL (65-115); Osmolality Calculated 277 mOsm/kg (285-295); Potassium 4.6 mmol/L (3.5-5.1); Sodium 135 mmol/L (136-145); Total Bilirubin 0.7 mg/dL (0.15-1.2); Total Protein 8.4 g/dL (6.6-8.7)
[2023-12-12] MEDS: iohexol 350 mg/mL 500 mL Btl (per mL) IV (23:33)
[2023-12-12] MEDS: diphenhydrAMINE 50 mg/mL SDV 1mL 25 MG IVP (23:45)
[2023-12-12 23:50] VITALS: BP 152/127; PULSE 85; O2SAT 97
[2023-12-13] VITALS (21 sets, daily range): BP systolic 124–158; BP diastolic 78–105; PULSE 77–92; RESP 16–28; TEMP 36.4–37.2; O2SAT 93–100
[2023-12-13] MEDS: hyDRALAzine 20 mg/mL INJ 1 mL 10 MG IVP (00:04)
[2023-12-13 00:22] LABS: Lipase 5021 U/L (13-60)
--- NOTE | 2023-12-13 00:22 | ECG_ITS ---
[facility] Test Date: 2023-12-13 Pat Name: Darci Ruiz Department: Room: Gender: Male Digital Media Analyst: : 1960 Requested By: Susan Whitley Order Number: [id number] Luis Manuel MD: Migue Graves M.D. Measurements Intervals [place] Rate: 87 P: 44 [place]: 142 QRS: 10 QRSD: 73 T: 63 QT: 350 QTc: 422 Interpretive Statements SINUS RHYTHM SEPTAL MYOCARDIAL INFARCTION , PROBABLY OLD [40+ ms Q WAVE IN V1/V2] Compared to ECG 12/12/2023 22:33:28 No significant changes Electronically Signed On 12-13-2023 8:20:35 CDT by Migue Graves M.D. [id number]
[2023-12-13 00:44] LABS: Troponin 5 2HR 10.78 ng/L (0-15)
[2023-12-13 00:45] LABS: Troponin 5 2HR Delta -0.22 ABS# (0-10)
[2023-12-13] MEDS: morphine 4 mg/mL SDV 1 mL IVP (00:52)
--- NOTE | 2023-12-13 01:19 | P.HP_ITS ---
Providers/Chief Complaint 2 Chief Complaint: abdominal pressure History of Present Illness Darci Ruiz is a 63 year old male with a past medical history of hypertension, history of alcoholism, history of pancreatitis history of marijuana use, who presents to [facility] due to abdominal pain patient reports that today, he started to develop epigastric discomfort, radiating to the back, not improving associate with nausea, he had a bowel movement yesterday, he tells me that it was a very thin bowel movement, no bloody or black stools reported, no lightheadedness, dizziness, his last alcohol drink was about 24 hours ago, denies any drug use, Review of Systems 2 Const: Denies: fever(s) Card: Denies: chest pain Resp: Denies: dyspnea GI: Reports: abdominal pain and nausea Neuro: Denies: headache(s) Medications/Allergies Home Medications Medication Instructions Recorded Confirmed Last Taken Type escitalopram oxalate 10 mg tablet 10 mg PO DAILY 30 days #30 tabs 12/05/21 Unknown Rx lisinopril 20 mg tablet 20 mg PO DAILY 30 days #30 tabs 12/05/21 Unknown Rx meclizine 50 mg tablet (Antivert) 50 mg PO BID PRN dizziness #20 tabs 10/14/22 Unknown Rx metoprolol succinate 50 mg 50 mg PO DAILY #30 tabs 10/14/22 Unknown Rx tablet,extended release 24 hr ondansetron 4 mg disintegrating 4 mg PO Q6H PRN nausea and 10/14/22 Unknown Rx tablet vomiting #14 tabs Allergies Allergy/AdvReac Type Severity Reaction Status Date / Time No Known Allergies Allergy Verified 12/01/21 11:14 PFSH Acute 2 PFSH: Medical History (Updated 12/13/23 @ 01:22 by Virgil Acevedo MD) History of hypertension No pertinent past medical history Social History (Updated 12/13/23 @ 01:21 by Virgil Acevedo MD) Smoking and tobacco/nicotine status: never used tobacco/nicotine Alcohol intake: current Substance/Drug Use: former Vitals/I&O/Wt Last Vital Signs Temp 98.8 F 12/12/23 22:22 Pulse 84 12/13/23 00:54 Resp 22 H 12/13/23 00:54 BP 146/92 12/13/23 00:54 Pulse Ox 98 12/13/23 00:54 O2 Del Method Room Air 12/13/23 00:54 Weight last 48 hrs Weight 68.039 kg Physical Exam 2 Const: COMMON NORMALS: no acute distress and patient oriented x3 HENMT: COMMON NORMALS: normocephalic HEAD & SCALP: normocephalic Eye: COMMON NORMALS: Equal, round and reactive pupils present and EOMs intact bilaterally Neck/C-Spine: COMMON NORMALS: no JVD Resp: COMMON NORMALS: normal respiratory effort, No retractions, No use of accessory muscles and clear to auscultation bilaterally AUSCULTATION: clear to auscultation bilaterally Cardio: COMMON NORMALS: no JVD, regular rate, regular rhythm, S1 normal heart sound present and S2 normal heart sound present RATE: regular rate RHYTHM: regular rhythm HEART SOUNDS: S1 normal heart sound present and S2 normal heart sound present GI: OTHER: Abdomen is soft, distended, good bowel sounds in all 4 quadrants, no guarding, no rebound, no rigidity, does have diffuse abdominal tenderness Extremity: COMMON NORMALS: no calf tenderness and no pedal edema Neuro: COMMON NORMALS: patient oriented x3, CN's II-XII intact bilaterally and moves all extremities Psych: COMMON NORMALS: mental status grossly normal Data 12/12/23 22:15 12/12/23 22:15 A&P Assessment and plan (1) Pancreatitis: (2) Alcohol withdrawal: (3) Transaminitis: (4) Hypoglycemia: Plan Alcoholic pancreatitis ? Keep n.p.o. ? IV fluids ? Dilaudid for pain control -Zofran for nausea ? CRP, Pro-Mina, A1c, lipid panel ? Serial abdominal exams ? Banana bag ? CIWA protocol ? Transaminitis, monitor ? Hypoglycemia, currently asymptomatic, monitor blood sugars ? Full code -Lovenox for DVT prophylaxis Attestations 2 Medical Necessity Statement*: Patient requires hospitalization, inpatient, greater than 2 midnights, for alcoholic pancreatitis, alcohol withdrawal Diagnoses Pancreatitis K85.90 Alcohol withdrawal F10.939 Transaminitis R74.01 Hypoglycemia E16.2
[2023-12-13 01:41] LABS: Lactic Sepsis W/Reflex 1.4 mmol/L (0.5-2.2)
[2023-12-13 01:47] LABS: Procalcitonin 0.14 ng/mL (0-0.5)
[2023-12-13 02:02] LABS: Add Urine Microscopic? NO; Charge for UA Resulting for Rev
[2023-12-13 02:08] LABS: Bilirubin Urine Neg (Negative); Blood Urine Neg (Negative); Glucose Urine UA Norm (Normal); Ketones Urine Negative (Negative); Leukocyte Esterase Urine Negative (Negative); Nitrate Urine Negative (Negative); Protein Urine Neg (Negative); Specific Gravity, Urine 1.001 (1.005-1.030); Urine Appearance Clear (CLEAR); Urine Color Light yellow (Yellow); Urobilinogen Urine Neg (Negative); pH Urine 5 (5-7)
[2023-12-13] MEDS: sodium chloride 0.9% 1,000 ML 125 ML IV ×3 (02:09→23:28)
[2023-12-13 02:12] LABS: Amphetamines Screen Urine Negative (Negative); Barbiturates Screen Urine Negative (Negative); Benzodiazepines Screen Urine Negative (Negative); Cocaine Screen Urine Negative (Negative); Opiate Screen Urine Negative (Negative); PCP Screen Urine Negative (Negative); THC Screen Urine Negative (Negative)
[2023-12-13] MEDS: HYDROmorphone 1 mg/mL INJ 1 mL IVP ×4 (02:12→23:28)
[2023-12-13 02:19] LABS: Alcohol Level 16 mg/dL (0-10); Chol HDL Ratio 3.26 mg/dL (1.0-5.00); Cholesterol 140 mg/dL (0-200); HDL Cholesterol 43 mg/dL (60-100); LDL Cholesterol Calculated 78 mg/dL (50-129); LDL HDL Ratio 1.81 RATIO (0.00-3.22); Magnesium 2.1 mg/dL (1.7-2.3); Thyroid Stimulating Hormone 6.28 uIU/mL (0.27-4.20); Triglycerides 96 mg/dL (0-150)
[2023-12-13 03:15] LABS: Estmated Average Glucose 94; Hemoglobin A1C 4.9 % (4.0-6.0)
--- NOTE | 2023-12-13 03:57 | ECG_ITS ---
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 Measurements Intervals [place] Rate: 85 P: 141 [place]: 137 QRS: 25 QRSD: 69 T: 127 QT: 354 QTc: 422 Interpretive Statements SINUS RHYTHM SEPTAL MYOCARDIAL INFARCTION , OF INDETERMINATE AGE [40+ ms Q WAVE IN V1/V2] Compared to ECG 12/13/2023 00:32:07 No significant changes Electronically Signed On 12-13-2023 8:16:42 CDT by Migue Graves M.D. [id number]
[2023-12-13] MEDS: albuterol 2.5 mg/3 mL Neb INHALATION ×3 (04:27→23:46)
[2023-12-13 06:03] LABS: Troponin 5 6HR 17.55 ng/L (0-15); Troponin 5 6HR Delta 6.55 ng/L (0-12)
[2023-12-13] MEDS: pantoprazole 40 mg SDV IVP (06:34)
[2023-12-13] MEDS: enoxaparin 40 mg/0.4 mL Syringe SUBCUT (06:35)
[2023-12-13 07:00] LABS: Glucose Point of Care 95 mg/dL (70-110)
[2023-12-13] MEDS: folic acid 1 MG, multivitamin inj 10 ML, thiamine 100 MG in sodium chloride 0.9% 1,000 ML 252.800000000000011 MG IV (07:44)
[2023-12-13] MEDS: thiamine 100 mg Tablet PO (07:44)
[2023-12-13] MEDS: multivitamin therapeutic Tablet 1 TAB PO (07:45)
[2023-12-13] MEDS: folic acid 1 mg Tablet PO (07:45)
--- NOTE | 2023-12-13 10:29 | PC.SOCIAL ---
IMM Update pg 2 of IMM updated and reviewed w/ patient. Copy provided and copy dated and initialed and placed in chart.
--- NOTE | 2023-12-13 11:09 | PM.MISC ---
Miscellaneous Note Note: seen today no acute events overnight Patient would like to try some water. Will advance diet to clear liquids. Continue management as per H&P.
[2023-12-13 11:25] LABS: Glucose Point of Care 128 mg/dL (70-110)
[2023-12-13 16:45] LABS: Glucose Point of Care 76 mg/dL (70-110)
[2023-12-13] MEDS: benzonatate 100 mg Capsule PO (19:38)
[2023-12-13 21:18] LABS: Glucose Point of Care 86 mg/dL (70-110)
--- NOTE | 2023-12-13 23:35 | PC.NURSE ---
Addendum entered by Megan Segura RN 12/14/23 02:48: RT notified. Original Note: Patient currently has expiratory wheezing and c/o shortness of breath. Patient did not have wheezing upon my initial shift assessment. Patient states he does not have a history of asthma or COPD, but that he does smoke. Patient states he does not use any inhalers or have any breathing treatments at home. Oxygen saturation 93 percent on room air. Dr. Acevedo notified and ordered to have respiratory see him and give him a duoneb.
[2023-12-14] VITALS (15 sets, daily range): BP systolic 127–167; BP diastolic 73–89; PULSE 83–98; RESP 16–18; TEMP 36.8–37.6; O2SAT 91–94
[2023-12-14] MEDS: benzonatate 100 mg Capsule PO ×3 (04:08→22:48)
[2023-12-14] MEDS: HYDROmorphone 1 mg/mL INJ 1 mL IVP ×5 (04:16→22:48)
[2023-12-14 06:40] LABS: Basophils # 0.1 10^3/uL (0.0-0.1); Basophils % 0.6 %; Eosinophils # 0.4 10^3/uL (0.0-0.8); Eosinophils % 4.7 %; Hematocrit 40.9 % (37-53); Lymphocytes # 1.3 10^3/uL (0.8-4.8); Lymphocytes % 15.3 %; Mean Corpuscular HGB Conc 33.5 g/dL (30-55); Mean Corpuscular Hemoglobin 32.9 pg (27-33); Mean Corpuscular Volume 98.3 fl (82-101); Monocytes # 0.8 10^3/uL (0.2-0.9); Monocytes % 9.4 %; Neutrophils # 5.65 10^3/uL (1.8-7.7); Neutrophils % 69.3 %; Nucleated Red Blood Cells % 0 %; Platelet Count 158 10^3/cmm (157-399); Red Blood Count 4.16 10^6/uL (3.85-5.65); Red Cell Distribution Width 12.8 % (12.1-15.1); White Blood Count 8.16 10^3/uL (3.29-11.43)
[2023-12-14 07:01] LABS: Glucose Point of Care 80 mg/dL (70-110)
[2023-12-14 07:03] LABS: Anion Gap 11.1 (5-19); Blood Urea Nitrogen 7 mg/dL (8-23); Calcium 7.8 mg/dL (8.5-10.5); Carbon Dioxide 25 mmol/L (22-29); Chloride 102 mmol/L (98-107); Creatinine Clr Calc Pharmacy 92.9589; Glomerular Filtration Rate 113.2 mL/min (90-130); Glucose 74 mg/dL (65-115); Magnesium 1.9 mg/dL (1.7-2.3); Osmolality Calculated 275 mOsm/kg (285-295); Potassium 4.1 mmol/L (3.5-5.1); Sodium 134 mmol/L (136-145)
[2023-12-14] MEDS: albuterol 2.5 mg/3 mL Neb INHALATION (08:36)
[2023-12-14] MEDS: pantoprazole 40 mg SDV IVP (08:41)
[2023-12-14] MEDS: multivitamin therapeutic Tablet 1 TAB PO (08:41)
[2023-12-14] MEDS: thiamine 100 mg Tablet PO (08:42)
[2023-12-14] MEDS: folic acid 1 mg Tablet PO (08:42)
[2023-12-14] MEDS: enoxaparin 40 mg/0.4 mL Syringe SUBCUT (08:42)
[2023-12-14 11:41] LABS: Glucose Point of Care 77 mg/dL (70-110)
--- NOTE | 2023-12-14 15:36 | P.PN_ITS ---
Subjective 2 Subjective: Reports some abdominal pain but better Tolerating clears Vitals/I&O/Wt Last Vital Signs Temp 98.3 F 12/14/23 11:50 Pulse 83 12/14/23 14:00 Resp 16 12/14/23 13:41 BP 152/89 12/14/23 11:50 Pulse Ox 93 12/14/23 11:50 O2 Del Method Room Air 12/14/23 11:50 O2 Flow Rate 1 12/13/23 02:05 12/14/23 12/14/23 12/14/23 06:59 14:59 22:59 Intake Total 966.667 / 4917.867 2220 / 2220 Output Total 1350 / 4450 Balance -383.333 / 055.268 9417 / 2220 Weight last 48 hrs Weight 182 lb 8 oz Weight 180 lb 4 oz Weight 150 lb Physical Exam 2 Const: COMMON NORMALS: no acute distress and patient oriented x3 HENMT: COMMON NORMALS: normocephalic HEAD & SCALP: normocephalic Eye: COMMON NORMALS: Equal, round and reactive pupils present and EOMs intact bilaterally PUPIL: Yes Equal, round and reactive pupils present Neck/C-Spine: COMMON NORMALS: no JVD Resp: COMMON NORMALS: normal respiratory effort, No retractions, No use of accessory muscles and clear to auscultation bilaterally AUSCULTATION: clear to auscultation bilaterally Cardio: COMMON NORMALS: no JVD, regular rate, regular rhythm, S1 normal heart sound present and S2 normal heart sound present RATE: regular rate RHYTHM: regular rhythm HEART SOUNDS: S1 normal heart sound present and S2 normal heart sound present GI: OTHER: Abdomen is soft, distended, good bowel sounds in all 4 quadrants, no guarding, no rebound, no rigidity, does have diffuse abdominal tenderness Extremity: COMMON NORMALS: no calf tenderness and no pedal edema Neuro: COMMON NORMALS: patient oriented x3, CN's II-XII intact bilaterally and moves all extremities Psych: COMMON NORMALS: mental status grossly normal Data 12/14/23 05:28 12/14/23 05:28 A&P Assessment and plan (1) Pancreatitis: (2) Alcohol withdrawal: (3) Transaminitis: (4) Hypoglycemia: Plan Alcoholic pancreatitis ? CLD ? IV fluids ? Dilaudid for pain control -Zofran for nausea ? Serial abdominal exams ? [facility] protocol ? Transaminitis, monitor ? check labs in AM, consider advancing diet ? Full code -Lovenox for DVT prophylaxis Attestations 2 Medical Necessity Statement*: labs, pain medication Coding Level of Care Code 38477 Diagnoses Pancreatitis K85.90 Alcohol withdrawal F10.939 Transaminitis R74.01 Hypoglycemia E16.2
[2023-12-14 16:49] LABS: Glucose Point of Care 119 mg/dL (70-110)
[2023-12-14 21:02] LABS: Glucose Point of Care 77 mg/dL (70-110)
[2023-12-15] VITALS (11 sets, daily range): BP systolic 135–173; BP diastolic 74–92; PULSE 77–86; RESP 17–22; TEMP 36.4–37.1; O2SAT 94–96
[2023-12-15 06:33] LABS: Glucose Point of Care 99 mg/dL (70-110)
[2023-12-15] MEDS: HYDROmorphone 1 mg/mL INJ 1 mL IVP ×2 (08:19→14:36)
[2023-12-15] MEDS: multivitamin therapeutic Tablet 1 TAB PO (08:19)
[2023-12-15] MEDS: folic acid 1 mg Tablet PO (08:19)
[2023-12-15] MEDS: thiamine 100 mg Tablet PO (08:19)
[2023-12-15] MEDS: pantoprazole 40 mg SDV IVP (08:19)
[2023-12-15] MEDS: enoxaparin 40 mg/0.4 mL Syringe SUBCUT (08:20)
[2023-12-15 11:29] LABS: Glucose Point of Care 164 mg/dL (70-110)
[2023-12-15] MEDS: benzonatate 100 mg Capsule PO (14:39)
--- NOTE | 2023-12-15 15:41 | P.PN_ITS ---
Subjective 2 Subjective: feels better denies abd pain tolerating clear liquid diet Vitals/I&O/Wt Last Vital Signs Temp 97.6 F 12/15/23 11:52 Pulse 79 12/15/23 11:52 Resp 22 H 12/15/23 14:36 BP 145/87 12/15/23 11:52 Pulse Ox 95 12/15/23 11:52 O2 Del Method Room Air 12/15/23 11:52 O2 Flow Rate 1 12/13/23 02:05 12/15/23 12/15/23 12/15/23 06:59 14:59 22:59 Intake Total 1660 / 1660 Output Total 500 / 1800 Balance -500 / 1500 1660 / 1660 Weight last 48 hrs Weight 179 lb Weight 182 lb 8 oz Physical Exam 2 Const: COMMON NORMALS: no acute distress and patient oriented x3 HENMT: COMMON NORMALS: normocephalic HEAD & SCALP: normocephalic Eye: COMMON NORMALS: Equal, round and reactive pupils present and EOMs intact bilaterally PUPIL: Yes Equal, round and reactive pupils present Neck/C-Spine: COMMON NORMALS: no JVD Resp: COMMON NORMALS: normal respiratory effort, No retractions, No use of accessory muscles and clear to auscultation bilaterally AUSCULTATION: clear to auscultation bilaterally Cardio: COMMON NORMALS: no JVD, regular rate, regular rhythm, S1 normal heart sound present and S2 normal heart sound present RATE: regular rate RHYTHM: regular rhythm HEART SOUNDS: S1 normal heart sound present and S2 normal heart sound present GI: OTHER: Abdomen is soft, distended, good bowel sounds in all 4 quadrants, no guarding, no rebound, no rigidity, does have diffuse abdominal tenderness Extremity: COMMON NORMALS: no calf tenderness and no pedal edema Neuro: COMMON NORMALS: patient oriented x3, CN's II-XII intact bilaterally and moves all extremities Psych: COMMON NORMALS: mental status grossly normal Data 12/14/23 05:28 12/14/23 05:28 A&P Assessment and plan (1) Pancreatitis: (2) Alcohol withdrawal: (3) Transaminitis: (4) Hypoglycemia: Plan Alcoholic pancreatitis ? CLD ? IV fluids ? Dilaudid for pain control -Zofran for nausea -labs pending ? Serial abdominal exams ? [facility] protocol ? Transaminitis, monitor ? check labs in AM, consider advancing diet ? Full code -Lovenox for DVT prophylaxis Attestations 2 Medical Necessity Statement*: Darci Ruiz requires ongoing inpatient care for labs, serial exam, pain medication Coding Level of Care Code 21505 Diagnoses Pancreatitis K85.90 Alcohol withdrawal F10.939 Transaminitis R74.01 Hypoglycemia E16.2
[2023-12-15 15:59] LABS: Basophils % 0.7 %; Eosinophils # 0.4 10^3/uL (0.0-0.8); Eosinophils % 6.6 %; Hematocrit 39.7 % (37-53); Lymphocytes # 1.2 10^3/uL (0.8-4.8); Mean Corpuscular Volume 97.1 fl (82-101); Mean Platelet Volume 9.5 fL (7.4-10.4); Monocytes # 0.6 10^3/uL (0.2-0.9); Monocytes % 10.6 %; Neutrophils % 60.9 %; Nucleated Red Blood Cells % 0 %; Platelet Count 160 10^3/cmm (157-399); Red Blood Count 4.09 10^6/uL (3.85-5.65); Red Cell Distribution Width 12.4 % (12.1-15.1); White Blood Count 5.58 10^3/uL (3.29-11.43)
[2023-12-15 16:17] LABS: Alanine Aminotransferase 28 U/L (0-41); Albumin Level 3.5 g/dL (3.5-5.2); Alkaline Phosphatase 74 U/L (40-130); Aspartate Amino Transferase 29 U/L (0-40); Blood Urea Nitrogen 4 mg/dL (8-23); Calcium 8.4 mg/dL (8.5-10.5); Carbon Dioxide 25 mmol/L (22-29); Chloride 101 mmol/L (98-107); Creatinine Clr Calc Pharmacy 92.1318; Glucose 113 mg/dL (65-115); Lipase 244 U/L (13-60); Osmolality Calculated 274 mOsm/kg (285-295); Sodium 133 mmol/L (136-145); Total Bilirubin 0.8 mg/dL (0.15-1.2); Total Protein 6.5 g/dL (6.6-8.7)
[2023-12-15 16:37] LABS: Glucose Point of Care 100 mg/dL (70-110)
--- NOTE | 2023-12-15 17:34 | PC.NURSE ---
Patient to the desk asking why the vending machines are not working. Patient was advanced to a full liquid diet at this time by the doctor. The patient states, I am starving and I want to eat. I would like a sandwich please I do not care what the doctor says.' [place] given. Gerri nurse notified.
[2023-12-15 21:07] LABS: Glucose Point of Care 115 mg/dL (70-110)
[2023-12-16] VITALS: BP 148/84; PULSE 75; RESP 17; TEMP 37.1; O2SAT 97
[2023-12-16 04:00] VITALS: BP 181/97; PULSE 74; RESP 17; TEMP 37.1; O2SAT 96
[2023-12-16 06:39] LABS: Glucose Point of Care 109 mg/dL (70-110)
[2023-12-16 08:14] VITALS: BP 178/99; PULSE 73; RESP 18; TEMP 36.8; O2SAT 96
[2023-12-16] MEDS: enoxaparin 40 mg/0.4 mL Syringe SUBCUT (09:19)
[2023-12-16] MEDS: multivitamin therapeutic Tablet 1 TAB PO (09:19)
[2023-12-16] MEDS: folic acid 1 mg Tablet PO (09:19)
[2023-12-16] MEDS: thiamine 100 mg Tablet PO (09:19)
[2023-12-16] MEDS: pantoprazole 40 mg SDV IVP (09:31)
[2023-12-16 10:35] LABS: Alanine Aminotransferase 37 U/L (0-41); Albumin Level 3.9 g/dL (3.5-5.2); Alkaline Phosphatase 87 U/L (40-130); Anion Gap 14.1 (5-19); Aspartate Amino Transferase 38 U/L (0-40); Blood Urea Nitrogen 6 mg/dL (8-23); Calcium 8.8 mg/dL (8.5-10.5); Carbon Dioxide 23 mmol/L (22-29); Chloride 103 mmol/L (98-107); Creatinine Clr Calc Pharmacy 92.2203; Globulin 2.8 g/dL (1.3-4.6); Glomerular Filtration Rate 113.2 mL/min (90-130); Glucose 128 mg/dL (65-115); Osmolality Calculated 281 mOsm/kg (285-295); Potassium 4.1 mmol/L (3.5-5.1); Sodium 136 mmol/L (136-145); Total Bilirubin 0.8 mg/dL (0.15-1.2); Total Protein 6.7 g/dL (6.6-8.7)
[2023-12-16 10:46] LABS: Lipase 558 U/L (13-60)
[2023-12-16 11:29] VITALS: PULSE 87; RESP 17; O2SAT 94
[2023-12-16 11:47] LABS: Glucose Point of Care 157 mg/dL (70-110)
--- NOTE | 2023-12-16 11:54 | P.DS_ITS ---
Discharge Providers Date of Admission: 12/13/23 01:26 Date of Discharge: December 16, 2023 Attending Provider at Admission: Virgil Acevedo MD Attending Provider at Discharge: Brian Paniagua MD Diagnoses at Discharge Discharge Diagnosis (1) Pancreatitis: Status: Acute (2) Alcohol withdrawal: Status: Acute (3) Transaminitis: Status: Acute (4) Hypoglycemia: Status: Acute Reason for Visit Reason for Visit: abdominal pressure Hospital Course Hospital Course 63-year-old male presented with abdominal pain. Diagnosed with acute pancreatitis. Also concern for alcohol withdrawal. Patient was initially kept n.p.o. pain medications IV fluids. Serial labs and abdominal exams were done. Labs improved. Diet was advanced. He was discharged in stable condition. He was recommended to discontinue alcohol Other issues including transaminitis, hypoglycemia were addressed during the visit Physical Exam Const: COMMON NORMALS: no acute distress and patient oriented x3 HENMT: COMMON NORMALS: normocephalic HEAD & SCALP: normocephalic Eye: COMMON NORMALS: Equal, round and reactive pupils present and EOMs intact bilaterally PUPIL: Yes Equal, round and reactive pupils present Neck/C-Spine: COMMON NORMALS: no JVD Resp: COMMON NORMALS: normal respiratory effort, No retractions, No use of accessory muscles and clear to auscultation bilaterally AUSCULTATION: clear to auscultation bilaterally Cardio: COMMON NORMALS: no JVD, regular rate, regular rhythm, S1 normal heart sound present and S2 normal heart sound present RATE: regular rate RHYTHM: regular rhythm HEART SOUNDS: S1 normal heart sound present and S2 normal heart sound present GI: COMMON NORMALS: Normal to inspection, nondistended, normoactive bowel sounds present, Soft to palpation and non-tender PALPATION: Yes Soft to palpation Extremity: COMMON NORMALS: no calf tenderness and no pedal edema Neuro: COMMON NORMALS: patient oriented x3, CN's II-XII intact bilaterally and moves all extremities Psych: COMMON NORMALS: mental status grossly normal Discharge Data Studies Completed and Pending Completed Studies During Hospitalization Category Date Time Status CT abdomen pelvis w con* [id number] Stat Cat Scan 12/12/23 22:25 Completed XR chest 1V portable [id number] Stat Exams 12/12/23 22:22 Completed Pending at discharge Category Date Time Status Complete Blood Count w/Auto Routine Lab 12/16/23 10:40 Ordered Radiology Impressions Chest X-Ray 12/12/23 22:22 IMPRESSION: No acute cardiopulmonary process. Abdomen/Pelvis CT 12/12/23 22:25 IMPRESSION: No acute intra-abdominal process. COMMENTS: Consistent with the [place] [employer]'s Incidental Findings Committee white paper (J Am Luis Radiol 2018): Any incidental renal lesion less than 1 cm or classified as too small to characterize, or any incidental cystic renal lesion characterized as simple-appearing, is likely benign. No follow-up imaging is recommended for these lesions per consensus recommendations based on imaging criteria. Laboratory Results WBC Cancelled 12/16/23 10:03 Corrected WBC Cancelled 12/16/23 10:03 RBC Cancelled 12/16/23 10:03 Hgb Cancelled 12/16/23 10:03 Hct Cancelled 12/16/23 10:03 MCV Cancelled 12/16/23 10:03 MCH Cancelled 12/16/23 10:03 MCHC Cancelled 12/16/23 10:03 RDW Cancelled 12/16/23 10:03 Plt Count Cancelled 12/16/23 10:03 MPV Cancelled 12/16/23 10:03 Gran % Cancelled 12/16/23 10:03 Neut % (Auto) Cancelled 12/16/23 10:03 Lymph % (Auto) Cancelled 12/16/23 10:03 [place] % (Auto) Cancelled 12/16/23 10:03 Eos % (Auto) Cancelled 12/16/23 10:03 Baso % (Auto) Cancelled 12/16/23 10:03 Neut # (Auto) Cancelled 12/16/23 10:03 Lymph # (Auto) Cancelled 12/16/23 10:03 [place] # (Auto) Cancelled 12/16/23 10:03 Eos # (Auto) Cancelled 12/16/23 10:03 Baso # (Auto) Cancelled 12/16/23 10:03 Absolute Gran (auto) Cancelled 12/16/23 10:03 Nucleated RBC % (auto) Cancelled 12/16/23 10:03 Nucleated RBCs # Cancelled 12/16/23 10:03 PT 13.40 SECONDS (12.1-14.9) 12/12/23 22:15 INR 0.99 (0.8-1.2) 12/12/23 22:15 Sodium 136 mmol/L (136-145) 12/16/23 10:03 Potassium 4.1 mmol/L (3.5-5.1) 12/16/23 10:03 Chloride 103 mmol/L (98-107) 12/16/23 10:03 Carbon Dioxide 23 mmol/L (22-29) 12/16/23 10:03 Anion Gap 14.1 (5-19) 12/16/23 10:03 BUN 6 mg/dL (8-23) L 12/16/23 10:03 Creatinine 0.7 mg/dL (0.7-1.2) 12/16/23 10:03 GFR Calculation 113.2 mL/min (90-130) 12/16/23 10:03 Glucose 128 mg/dL (65-115) H 12/16/23 10:03 POC Glucose 157 mg/dL (70-110) H 12/16/23 11:37 Estimat Average Glucose 94 12/12/23 22:15 Hemoglobin A1c 4.9 % (4.0-6.0) 12/12/23 22:15 Calculated Osmolality 281 mOsm/kg (285-295) L 12/16/23 10:03 Lactic Acid 1.4 mmol/L (0.5-2.2) 12/12/23 22:56 Calcium 8.8 mg/dL (8.5-10.5) 12/16/23 10:03 Magnesium 1.9 mg/dL (1.7-2.3) 12/14/23 05:28 Total Bilirubin 0.8 mg/dL (0.15-1.2) 12/16/23 10:03 AST 38 U/L (0-40) 12/16/23 10:03 ALT 37 U/L (0-41) 12/16/23 10:03 Alkaline Phosphatase 87 U/L (40-130) 12/16/23 10:03 Troponin T Baseline 11 ng/L (0-15) 12/12/23 22:15 Troponin T 120 Minute 10.78 ng/L (0-15) 12/13/23 00:16 Delta Troponin T -0.22 ABS# (0-10) L 12/13/23 00:16 Troponin T Hi Sens 6Hr 17.55 ng/L (0-15) H 12/13/23 05:19 Troponin T Hi Sens 6Hr Delta 6.55 ng/L (0-12) 12/13/23 05:19 Total Protein 6.7 g/dL (6.6-8.7) 12/16/23 10:03 Albumin 3.9 g/dL (3.5-5.2) 12/16/23 10:03 Globulin 2.8 g/dL (1.3-4.6) 12/16/23 10:03 Triglycerides 96 mg/dL (0-150) 12/13/23 00:16 Cholesterol 140 mg/dL (0-200) 12/13/23 00:16 LDL Cholesterol, Calc 78 mg/dL (50-129) 12/13/23 00:16 HDL Cholesterol 43 mg/dL (60-100) L 12/13/23 00:16 LDL/HDL Ratio 1.81 RATIO (0.00-3.22) 12/13/23 00:16 Cholesterol/HDL Ratio 3.26 mg/dL (1.0-5.00) 12/13/23 00:16 Lipase 558 U/L (13-60) H 12/16/23 10:03 Procalcitonin 0.14 ng/mL (0-0.5) 12/12/23 22:15 TSH 6.28 uIU/mL (0.27-4.20) H 12/13/23 00:16 Urine Color Light yellow (Yellow) 12/13/23 01:31 Urine Appearance Clear (CLEAR) 12/13/23 01:31 Urine pH 5 (5-7) 12/13/23 01:31 Ur Specific [place] 1.001 (1.005-1.030) L 12/13/23 01:31 Urine Protein Neg (Negative) 12/13/23 01:31 Urine Glucose (UA) Norm (Normal) 12/13/23 01:31 Urine Ketones Negative (Negative) 12/13/23 01:31 Urine Blood Neg (Negative) 12/13/23 01:31 Urine Nitrate Negative (Negative) 12/13/23 01:31 Urine Bilirubin Neg (Negative) 12/13/23 01:31 Urine Urobilinogen Neg mg/dL (Negative) 12/13/23 01:31 Ur Leukocyte Esterase Negative (Negative) 12/13/23 01:31 Urine Opiates Screen Negative ng/mL (Negative) 05/17/24 01:31 Ur Barbiturates Screen Negative ng/mL (Negative) 12/13/23 01:31 Ur Phencyclidine Scrn Negative ng/mL (Negative) 12/13/23 01:31 Ur Amphetamines Screen Negative ng/mL (Negative) 12/13/23 01:31 U Benzodiazepines Scrn Negative ng/mL (Negative) 12/13/23 01:31 Urine Cocaine Screen Negative ng/mL (Negative) 12/13/23 01:31 U Marijuana (THC) Screen Negative ng/mL (Negative) 12/13/23 01:31 Ethyl Alcohol 16 mg/dL (0-10) H 12/13/23 00:16 Vitals Last Vital Signs Temp 98.3 F 12/16/23 08:14 Pulse 87 12/16/23 11:29 Resp 17 12/16/23 11:29 BP 178/99 12/16/23 08:14 Pulse Ox 94 12/16/23 11:29 O2 Del Method Room Air 12/16/23 11:29 O2 Flow Rate 1 12/13/23 02:05 Discharge Plan Discharge Patient Disposition: Home Condition: Stable Prescriptions: No Action No Known Home Medications Discharge Orders: Discharge Order (Routine); Ordered 12/16/23 Ordered By: Brian Paniagua Referrals: Crisis Stabilization [Other] (7 days/week 8am-6pm) Medicaid Transportation [Other] (To arrange transportation for an eligible participant, call , Saturday through Saturday, 8:00 AM to 5:00 PM, at least 5 calendar days before an appointment. Urgent appointments and hospital discharges may be called in 24 hours a day, 7 days a week.) [facility] [Outside] (? Follow up as a walk in at [facility], walk in hours are Saturday-Saturday from 7:30AM-3:00PM, first come, first seen. Once you do this assessment you will be referred for appropriate services.) Discharge Diet: Usual diet Discharge Activity: Resume usual activity Patient Instructions: Opioid Safety Plan of Treatment: stop alcohol low fat diet Discharge Attestations Time Spent in Discharge Care*: less than 30 min Quality Metrics Clinical Quality Measures [ No reported AMI, CVA or VTE this stay] Coding Level of Care Code 15048 Diagnoses Pancreatitis K85.90 Alcohol withdrawal F10.939 Transaminitis R74.01 Hypoglycemia E16.2
== END 2023-12-16 12:12 | disposition home or self-care (01) | DRG 439 ==
LOC: ER 12-13 01:01 → MEDSURG 12-13 01:26
PROVIDERS: Internal Medicine; Admitting Provider Family Medicine; Emergency Provider Emergency Medicine; Visit Provider Internal Medicine
DX: K85.20 Alcohol induced acute pancreatitis without necrosis or infection (principal); F10.239 Alcohol dependence with withdrawal, unspecified; I10 Essential (primary) hypertension; Y90.0 Blood alcohol level of less than 20 mg/100 ml; R74.01 Elevation of levels of liver transaminase levels; E16.2 Hypoglycemia, unspecified
CPT/HCPCS: 36415; 36416; 71045; 74177; 80048; 80053; 80061; 80306; 80307; 81003; 82962; 83036; 83605; 83690; 83735; 84145; 84443; 84484; 85025; 85610; 93005; 94640; 94664; 96372; 96374; 96375; 99285; C9113; J0360; J1170; J1200; J1650; J2270; J3411; J3490; J7030; J7613; Q9967

== ENCOUNTER 2024-03-11 21:29 | Observation (INO) | payer MEDICARE, MEDICAID, SELFPAY ==
[2024-03-11 21:31] VITALS: BP 173/108; PULSE 98; RESP 20; TEMP 36.7; O2SAT 96; BMI 25.8
--- NOTE | 2024-03-11 21:35 | ECG_ITS ---
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 Measurements Intervals [place] Rate: 116 P: 72 CT: 135 QRS: 39 QRSD: 76 T: 73 QT: 308 QTc: 428 Interpretive Statements SINUS TACHYCARDIA WITH FREQUENT SUPRAVENTRICULAR PREMATURE COMPLEXES SEPTAL MYOCARDIAL INFARCTION , OF INDETERMINATE AGE [40+ ms Q WAVE IN V1/V2] Compared to ECG 12/13/2023 03:57:57 Sinus rhythm no longer present Myocardial infarct finding still present Electronically Signed On 03-12-2024 11:07:41 CDT by Torey Whitney M.D. [id number] f
[2024-03-11 21:45] VITALS: BP 149/105; PULSE 115; RESP 17; O2SAT 95
[2024-03-11] MEDS: ondansetron 2 mg/ML SDV 2 mL 4 MG IVP (21:53)
[2024-03-11 21:55] VITALS: RESP 22
[2024-03-11] MEDS: morphine 4 mg/mL SDV 1 mL IVP (21:55)
[2024-03-11 22:05] VITALS: BP 174/96; PULSE 112; RESP 20; O2SAT 95
--- NOTE | 2024-03-11 22:06 | XRR_ITS ---
PROCEDURE INFORMATION: Exam: XR Abdomen Exam date and time: 03/11/2024 10:13 PM Age: 63 years old Clinical indication: Abdominal tenderness and nausea; Additional info: Abdominal pain, and chest pain TECHNIQUE: Imaging protocol: Radiologic exam of the abdomen. Views: 2 Views. Upright and supine views. COMPARISON: CT abdomen pelvis w con* [id number] 12/12/2023 11:30 PM FINDINGS: Lungs: The lungs are adequately expanded. No focal consolidations or pulmonary edema. Pleural spaces: No pleural effusions or pneumothorax. Heart/Mediastinum: No cardiomegaly. Gastrointestinal tract: Moderate stool burden. No bowel dilation. Intraperitoneal space: Normal. No free air. Bones/joints: No acute fractures. XR/XR acute abdomen series [id number] IMPRESSION: No acute findings. Moderate stool burden.
[2024-03-11 22:08] LABS: Bacteria Urine None Seen /hpf; Hyaline Casts Urine 0-4 /lpf; RBC Urine 0-2 /hpf (0-2); Squamous Epithelial Cell Urine 0-5 /hpf (0-5); WBC Urine 0-5 /hpf (0-5)
[2024-03-11 22:09] LABS: Amphetamines Screen Urine Negative (Negative); Barbiturates Screen Urine Negative (Negative); Benzodiazepines Screen Urine Negative (Negative); Cocaine Screen Urine Negative (Negative); Opiate Screen Urine Negative (Negative); PCP Screen Urine Negative (Negative); THC Screen Urine Negative (Negative)
[2024-03-11 22:30] VITALS: BP 175/96; PULSE 117; RESP 24; O2SAT 95
[2024-03-11 22:35] LABS: Basophils # 0.1 10^3/uL (0.0-0.1); Basophils % 0.5 %; Eosinophils # 0.3 10^3/uL (0.0-0.8); Hematocrit 50.3 % (37-53); Lymphocytes # 1.4 10^3/uL (0.8-4.8); Lymphocytes % 14.1 %; Mean Corpuscular HGB Conc 34.8 g/dL (30-55); Mean Corpuscular Volume 94.9 fl (82-101); Mean Platelet Volume 9.7 fL (7.4-10.4); Monocytes # 0.6 10^3/uL (0.2-0.9); Monocytes % 5.8 %; Neutrophils # 7.66 10^3/uL (1.8-7.7); Nucleated Red Blood Cells % 0 %; Platelet Count 223 10^3/cmm (157-399); Red Cell Distribution Width 12.2 % (12.1-15.1); White Blood Count 10.07 10^3/uL (3.29-11.43)
--- NOTE | 2024-03-11 22:47 | W.ED.ABDPA2 ---
HPI - Abdominal Pain General: Chief Complaint: Abdominal Pain Stated Complaint: ABD PAIN/RESP. DISTRESS Time Seen by Provider: 03/11/24 21:33 History of Present Illness: 63-year-old man with a history of regular alcohol use who presents to the emergency room with epigastric pain. He says it started several hours ago. He says he feels like it is bloated in his epigastric region. Said he did have a few beers today. No nausea or vomiting. He says he does have a history of pancreatitis but this does not feel the same. Says he hurts when he breathes. He is a bit hypertensive on presentation Related Data Home Medications Medication Instructions Recorded Confirmed No Known Home Medications 12/13/23 12/13/23 Allergies Allergy/AdvReac Type Severity Reaction Status Date / Time No Known Allergies Allergy Verified 12/13/23 07:39 Review of Systems Narrative: Constitutional symptoms: Negative except as documented in HPI. Skin symptoms: Negative except as documented in HPI. Eye symptoms: Negative except as documented in HPI. ENMT symptoms: Negative except as documented in HPI. Respiratory symptoms: Negative except as documented in HPI. Cardiovascular symptoms: Negative except as documented in HPI. Gastrointestinal symptoms: Negative except as documented in HPI. Genitourinary symptoms: Negative except as documented in HPI. Musculoskeletal symptoms: Negative except as documented in HPI. Neurologic symptoms: Negative except as documented in HPI. Psychiatric symptoms: Negative except as documented in HPI. Endocrine symptoms: Negative except as documented in HPI. [facility] ED PFSH: Medical History (Updated 03/12/24 @ 01:48 by Ana Parnell MD) History of hypertension Social History (Updated 12/14/23 @ 04:33 by Megan Segura RN) Smoking and tobacco/nicotine status: current every day tobacco/nicotine user Alcohol intake: current Substance/Drug Use: former Physical Exam Narrative: EXAM NARRATIVE: General: Alert, no acute distress. Patient keeps making hiccup type noises Skin: Warm, dry. Head: Normocephalic, atraumatic. Neck: Supple, trachea midline. Eye: Extraocular movements are intact. Ears, nose, mouth and throat: mucosa moist. Cardiovascular: Regular, Normal peripheral perfusion. Respiratory: Lungs are clear to auscultation, respirations are non-labored, breath sounds are equal, Symmetrical chest wall expansion. Gastrointestinal: Soft, patient is quite tender in his epigastric region., Non distended Musculoskeletal: Normal ROM, no deformity. Neurological: Alert and oriented, No focal neurological deficit observed. Psychiatric: Cooperative, appropriate mood & affect. Course Vital Signs: Vital signs: Vital Signs Temperature 98.0 F 03/11/24 21:31 Pulse Rate 100 03/11/24 23:51 Respiratory Rate 18 03/12/24 00:55 Blood Pressure 144/100 03/11/24 23:51 Pulse Oximetry 94 03/11/24 23:51 Oxygen Delivery Me thod Room Air 03/11/24 23:51 MDM - Abdominal Pain Medical Decision Making Medical decision making: Differential diagnosis including but not limited to and based on the above HPI, review of systems and physical exam: Orders placed to evaluate differential diagnosis based on the above differential, HPI and physical exam EKG: Time 2134. Rate 116. Sinus tachycardia, No ST-T changes, no ectopy, normal [place] & QRS intervals, This was reviewed and interpreted by myself the ER physician at 2137 Acute abdominal series: chest x-ray: No acute process. No free air. No obvious infiltrates. No pneumothorax. No cardiomegaly. This was reviewed and interpreted by myself the emergency room physician Abdomen x-ray: Nonspecific bowel gas pattern. No evidence of free air or obstruction. This was reviewed and interpreted by myself the emergency room physician. Lab Review: Laboratory results were reviewed and interpreted by myself the emergency room physician. White count is 10. Hemoglobin is 17-1/2 which is little elevated. BUN and creatinine are normal at 15 and 0.9. Lipase is quite elevated at 6800. D-dimer was elevated at 2.[address] with PE protocol was ordered. Also an abdomen pelvis was ordered to rule out pseudocyst. CTA of chest/CT of the abdomen with contrast: No PEs. Miliary nodules in the lungs that were present previously. Findings consistent with pancreatitis. No pseudocyst. This was reviewed and interpreted by myself the emergency room physician. I also reviewed the radiology report. I reviewed the patient's medical record. Reexamination: Patient remained stable. No increased work of breathing. No altered mental status. No focal motor deficits. Patient says he feels somewhat improved with morphine and fluids. Consultation: I spoke with Dr. Whatley who is on-call for the hospitalist who agrees to admission to observation. Assessment and plan: Pancreatitis Alcohol abuse ?Normal saline bolus and two 4 mg doses of morphine and a dose of Zofran IV. -I discussed the patient with the hospitalist on-call who is admitting the patient. - Discussed findings and plan with patient. Answered any questions. - All laboratory values were reviewed and interpreted personally by myself, the ER physician - All imaging was reviewed and interpreted personally by myself, the ER physician. - Evaluation and treatment of this problem were appropriate in the emergency setting Lab Data 03/11/24 22:01 03/11/24 22:01 Labs/Radiology: Radiology Impressions Chest/Abdomen X-ray 03/11/24 22:06 IMPRESSION: No acute findings. Moderate stool burden. Chest/Abdomen/Pelvis CTA 03/12/24 00:20 IMPRESSION: 1. No pulmonary emboli. 2. Innumerable bilateral miliary nodules throughout both lungs measuring up to 2 mm in size. These are nonspecific and were present on the prior abdominal CT dated 12/12/2023. 3. Fat stranding surrounding the head, neck, body and tail of the pancreas no pancreatic ductal dilatation. Findings can be seen the setting of acute pancreatitis. Correlate with lipase levels. Laboratory Results WBC 10.07 10^3/uL (3.29-11.43) 03/11/24 22:01 Corrected WBC Cancelled 03/11/24 21:13 RBC 5.30 10^6/uL (3.85-5.65) 03/11/24 22:01 Hgb 17.50 g/dL (11.27-16.99) H 03/11/24 22:01 Hct 50.3 % (37-53) 03/11/24 22: MCV 94.9 fl (82-101) 03/11/24 22:01 MCH 33.0 pg (27-33) 03/11/24 22:01 MCHC 34.8 g/dL (30-55) 03/11/24 22: RDW 12.2 % (12.1-15.1) 03/11/24 22:01 Plt Count 223 10^3/cmm (157-399) 03/11/24 22:01 MPV 9.7 fL (7.4-10.4) 03/11/24 22:01 Gran % Cancelled 03/11/24 21:13 Neut % (Auto) 76.0 % 03/11/24 22:01 Lymph % (Auto) 14.1 % 03/11/24 22:01 [place] % (Auto) 5.8 % 03/11/24 22:01 Eos % (Auto) 3.0 % 03/11/24 22:01 Baso % (Auto) 0.5 % 03/11/24 22:01 Neut # (Auto) 7.66 10^3/uL (1.8-7.7) 03/11/24 22:01 Lymph # (Auto) 1.4 10^3/uL (0.8-4.8) 03/11/24 22:01 [place] # (Auto) 0.6 10^3/uL (0.2-0.9) 03/11/24 22:01 Eos # (Auto) 0.3 10^3/uL (0.0-0.8) 03/11/24 22:01 Baso # (Auto) 0.1 10^3/uL (0.0-0.1) 03/11/24 22:01 Absolute Gran (auto) Cancelled 03/11/24 21:13 Nucleated RBC % (auto) 0 % 03/11/24 22:01 Nucleated RBCs # 0.0 /100WBC 03/11/24 22:01 D-Dimer 2.24 ug/mLFEU (0-0.59) H 03/11/24 22:01 Sodium 135 mmol/L (136-145) L 03/11/24 22:01 Potassium 4.1 mmol/L (3.5-5.1) 03/11/24 22:01 Chloride 96 mmol/L (98-107) L 03/11/24 22:01 Carbon Dioxide 25 mmol/L (22-29) 03/11/24 22:01 Anion Gap 18.1 (5-19) 03/11/24 22:01 BUN 15 mg/dL (8-23) 03/11/24 22:01 Creatinine 0.9 mg/dL (0.7-1.2) 03/11/24 22:01 GFR Calculation 84.7 mL/min (90-130) L 03/11/24 22:01 Glucose 67 mg/dL (65-115) 03/11/24 22: Calculated Osmolality 279 mOsm/kg (285-295) L 03/11/24 22:01 Lactic Acid 1.5 mmol/L (0.5-2.2) 03/11/24 22:01 Calcium 9.2 mg/dL (8.5-10.5) 03/11/24 22:01 Total Bilirubin 0.7 mg/dL (0.15-1.2) 03/11/24 22:01 AST 60 U/L (0-40) H 03/11/24 22:01 ALT 55 U/L (0-41) H 03/11/24 22:01 Alkaline Phosphatase 99 U/L (40-130) 03/11/24 22:01 Troponin T Baseline 10 ng/L (0-15) 03/11/24 22:01 Troponin T 120 Minute 8.55 ng/L (0-15) 03/11/24 23:09 Delta Troponin T -1.45 ABS# (0-10) L 03/11/24 23:09 C-Reactive Protein 6.2 mg/L (0.0-4.9) H 03/11/24 22:01 Total Protein 7.4 g/dL (6.6-8.7) 03/11/24 22:01 Albumin 4.5 g/dL (3.5-5.2) 03/11/24 22:01 Globulin 2.9 g/dL (1.3-4.6) 03/11/24 22:01 Lipase 6877 U/L (13-60) H 03/11/24 22:01 Urine Color Yellow (Yellow) 03/11/24 21:49 Urine Appearance Clear (CLEAR) 03/11/24 21:49 Urine pH 5.5 (5-7) 03/11/24 21:49 Ur Specific [place] 1.010 (1.005-1.030) 03/11/24 21:49 Urine Protein Negative (Negative) 03/11/24 21:49 Urine Glucose (UA) Negative (Normal) 03/11/24 21:49 Urine Ketones Negative (Negative) 03/11/24 21:49 Urine Blood Negative (Negative) 03/11/24 21:49 Urine Nitrate Negative (Negative) 03/11/24 21:49 Urine Bilirubin Negative (Negative) 03/11/24 21:49 Urine Urobilinogen 1.0 mg/dL (Negative) 03/11/24 21:49 Ur Leukocyte Esterase Negative (Negative) 03/11/24 21:49 Urine RBC 0-2 /hpf (0-2) 03/11/24 21:49 Urine WBC 0-5 /hpf (0-5) 03/11/24 21:49 Ur Squamous Epith Cells 0-5 /hpf (0-5) 03/11/24 21:49 Amorphous Sediment Not Reportable 03/11/24 21:49 Urine Bacteria None seen /hpf (NONE) 03/11/24 21:49 Hyaline Casts 0-4 /lpf H 03/11/24 21:49 Urine Opiates Screen Negative ng/mL (Negative) 03/11/24 21:49 Ur Barbiturates Screen Negative ng/mL (Negative) 03/11/24 21:49 Ur Phencyclidine Scrn Negative ng/mL (Negative) 03/11/24 21:49 Ur Amphetamines Screen Negative ng/mL (Negative) 03/11/24 21:49 U Benzodiazepines Scrn Negative ng/mL (Negative) 03/11/24 21:49 Urine Cocaine Screen Negative ng/mL (Negative) 03/11/24 21:49 U Marijuana (THC) Screen Negative ng/mL (Negative) 03/11/24 21:49 Ethyl Alcohol 36 mg/dL (0-10) H 03/11/24 22:01 All radiology interpretation(s) finalized by discharge Discharge Plan Discharge Patient Disposition: Placed in Observation Clinical Impression: Pancreatitis, Alcohol abuse Coding Level of Care Code ED Dining Room Maid for Isha Bush
[2024-03-11 22:50] LABS: Bilirubin Urine Negative (Negative); Blood Urine Negative (Negative); Glucose Urine UA Negative (Normal); Ketones Urine Negative (Negative); Leukocyte Esterase Urine Negative (Negative); Nitrate Urine Negative (Negative); Protein Urine Negative (Negative); Urine Appearance Clear (CLEAR); Urine Color Yellow (Yellow); pH Urine 5.5 (5-7)
[2024-03-11 22:53] LABS: D Dimer 2.24 ug/mLFEU (0-0.59)
[2024-03-11 22:55] LABS: Alanine Aminotransferase 55 U/L (0-41); Albumin Level 4.5 g/dL (3.5-5.2); Alcohol Level 36 mg/dL (0-10); Alkaline Phosphatase 99 U/L (40-130); Anion Gap 18.1 (5-19); Aspartate Amino Transferase 60 U/L (0-40); Blood Urea Nitrogen 15 mg/dL (8-23); C Reactive Protein 6.2 mg/L (0.0-4.9); Calcium 9.2 mg/dL (8.5-10.5); Carbon Dioxide 25 mmol/L (22-29); Chloride 96 mmol/L (98-107); Creatinine Clr Calc Pharmacy 77.9051; Globulin 2.9 g/dL (1.3-4.6); Glomerular Filtration Rate 84.7 mL/min (90-130); Glucose 67 mg/dL (65-115); Osmolality Calculated 279 mOsm/kg (285-295); Potassium 4.1 mmol/L (3.5-5.1); Sodium 135 mmol/L (136-145); Total Bilirubin 0.7 mg/dL (0.15-1.2); Total Protein 7.4 g/dL (6.6-8.7)
[2024-03-11 22:57] LABS: Lactic Sepsis W/Reflex 1.5 mmol/L (0.5-2.2)
[2024-03-11 22:58] LABS: Troponin(5th) Baseline 10 ng/L (0-15)
[2024-03-11 23:34] LABS: Troponin 5 2HR 8.55 ng/L (0-15)
[2024-03-11 23:35] LABS: Troponin 5 2HR Delta -1.45 ABS# (0-10)
--- NOTE | 2024-03-11 23:40 | ECG_ITS ---
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 Measurements Intervals [place] Rate: 96 P: 58 MI: 131 QRS: 25 QRSD: 82 T: 72 QT: 335 QTc: 424 Interpretive Statements SINUS RHYTHM SEPTAL MYOCARDIAL INFARCTION , OF INDETERMINATE AGE [40+ ms Q WAVE IN V1/V2] Compared to ECG 03/11/2024 21:35:51 Sinus tachycardia no longer present Myocardial infarct finding still present Electronically Signed On 03-12-2024 11:05:41 CDT by Torey Whitney M.D. [id number]
[2024-03-11 23:51] VITALS: BP 144/100; PULSE 100; RESP 18; O2SAT 94
[2024-03-11 23:54] LABS: Lipase 6877 U/L (13-60)
[2024-03-12] VITALS (10 sets, daily range): BP systolic 155–167; BP diastolic 81–98; PULSE 78–106; RESP 16–24; TEMP 36.7–37.1; O2SAT 90–95; BMI 25.8; BMI 28.8
--- NOTE | 2024-03-12 00:20 | CTR_ITS ---
PROCEDURE INFORMATION: Exam: CTA Chest With Contrast CTA Abdomen and Pelvis With Contrast Exam date and time: 03/12/2024 12:29 AM Age: 63 years old Clinical indication: Pain; Chest pressure; Additional info: Elevated d-dimer, pancreatitis TECHNIQUE: Imaging protocol: Computed tomographic angiography of the chest with contrast. Exam focused on the arteries. Computed tomographic angiography of the abdomen and pelvis with contrast. Exam focused on the arteries. 3D rendering (Not supervised by radiologist): MIP and/or 3D reconstructed images were created by the technologist. Radiation optimization: All CT scans at this facility use at least one of these dose optimization techniques: automated exposure control; mA and/or kV adjustment per patient size (includes targeted exams where dose is matched to clinical indication); or iterative reconstruction. Contrast material: OMIN 350; Contrast volume: 100 ml; Contrast route: INTRAVENOUS (IV); COMPARISON: CT abdomen pelvis w con* [id number] 12/12/2023 11:30 PM RADIATION DOSE METRICS: Total DLP (mGy-cm): 987.28 FINDINGS: VASCULATURE: Pulmonary arteries: No pulmonary emboli. Aorta: No aortic aneurysm. No aortic dissection. Celiac trunk and mesenteric arteries: No occlusion or significant stenosis. Renal arteries: No occlusion or significant stenosis. Right iliac arteries: No occlusion or significant stenosis. Left iliac arteries: No occlusion or significant stenosis. CHEST: Lungs: Innumerable bilateral miliary nodules throughout both lungs measuring up to 2 mm in size. These are nonspecific and were present on the prior abdominal CT dated 12/12/2023.. Pleural spaces: Unremarkable. No pneumothorax. No pleural effusion. Heart: Unremarkable. No cardiomegaly. No pericardial effusion. ABDOMEN AND PELVIS: Liver: No mass. Gallbladder and biliary ducts: Unremarkable. No calcified stones. No ductal dilation. Pancreas: Fat stranding surrounding the head, neck, body and tail of the pancreas no pancreatic ductal dilatation. Findings can be seen the setting of acute pancreatitis. Correlate with lipase levels. Spleen: Unremarkable. No splenomegaly. Adrenal glands: Unremarkable. No mass. Kidneys and ureters: Unremarkable. No solid mass. No hydronephrosis. Stomach and bowel: Unremarkable. No obstruction. No mucosal thickening. Appendix: No evidence of appendicitis. Intraperitoneal space: Unremarkable. No free air. No significant fluid collection. Urinary bladder: Unremarkable. No mass. Reproductive: Unremarkable as visualized. Lymph nodes: Unremarkable. No enlarged lymph nodes. Bones/joints: Unremarkable. No acute fracture. Soft tissues: Unremarkable. Other findings: . CT/CT ang [facility] [id number] IMPRESSION: 1. No pulmonary emboli. 2. Innumerable bilateral miliary nodules throughout both lungs measuring up to 2 mm in size. These are nonspecific and were present on the prior abdominal CT dated 12/12/2023. 3. Fat stranding surrounding the head, neck, body and tail of the pancreas no pancreatic ductal dilatation. Findings can be seen the setting of acute pancreatitis. Correlate with lipase levels.
[2024-03-12] MEDS: sodium chloride 0.9% 1,000 ML 999 ML IV (00:29)
[2024-03-12] MEDS: iohexol 350 mg/mL 500 mL Btl (per mL) IV (00:46)
[2024-03-12] MEDS: morphine 4 mg/mL SDV 1 mL IVP (00:55)
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
[2024-03-12] MEDS: HYDROmorphone 1 mg/mL INJ 1 mL IVP (02:45)
[2024-03-12] MEDS: enoxaparin 40 mg/0.4 mL Syringe SUBCUT (02:46)
[2024-03-12 02:56] LABS: Triglycerides 97 mg/dL (0-150)
[2024-03-12] MEDS: lactated ringers 1,000 ML 150 ML IV (03:08)
[2024-03-12] MEDS: ondansetron 2 mg/ML SDV 2 mL 4 MG IVP (03:21)
--- NOTE | 2024-03-12 04:50 | ECG_ITS ---
[facility] Test Date: 2024-03-12 Pat Name: Darci Ruiz Department: Room: 278 Gender: Male [employer]: : 1960 Requested By: Ana Mckeon Order Number: [id number] Issa MD: Torey Whitney M.D. Measurements Intervals [place] Rate: 94 P: 88 [place]: 134 QRS: 51 QRSD: 85 T: 72 QT: 348 QTc: 435 Interpretive Statements SINUS RHYTHM WITH SINUS ARRHYTHMIA Compared to ECG 03/11/2024 23:44:09 Myocardial infarct finding no longer present Electronically Signed On 03-12-2024 11:01:39 CDT by Torey Whitney M.D. [email or web address] state hospitalscPharmaceuticalsmercer county community [email or web address]/store/[id number]
[2024-03-12 04:51] LABS: Troponin 5 6HR 15.36 ng/L (0-15); Troponin 5 6HR Delta 5.36 ng/L (0-12)
[2024-03-12] MEDS: thiamine 100 mg Tablet PO (08:27)
[2024-03-12] MEDS: multivitamin therapeutic Tablet 1 TAB PO (08:28)
[2024-03-12] MEDS: folic acid 1 mg Tablet PO (08:28)
[2024-03-12] MEDS: HYDROmorphone 1 mg/mL INJ 1 mL 0.5 MG IVP (08:49)
--- NOTE | 2024-03-12 09:44 | PC.NURSE ---
Pt was up in room to go to restroom, stopped and filled plastic in-room glass with water to drink. I reminded him he is NPO, and that the doctor had ordered he rest his pancreas and not take anything by mouth. Pt replied he is sick of being told can't and he doesn't care what Doctor orders are; he stated he is getting water one way or another. I notified physician.
--- NOTE | 2024-03-12 10:22 | PC.NURSE ---
Dr Ramirez rounded; pt stated while physician in room that he is leaving today no matter what. Dr advised pt of risks of leaving AMA; pt signed AMA form.
--- NOTE | 2024-03-12 10:26 | P.DS_ITS ---
Discharge Providers Date of Admission: 03/12/24 01:47 Date of Discharge: March 12, 2024 Attending Provider at Admission: Alonzo Whatley MD Attending Provider at Discharge: Ole Ramirez MD Diagnoses at Discharge Discharge Diagnosis (1) Pancreatitis: Status: Acute (2) Transaminitis: Status: Acute (3) Alcohol abuse: Status: Acute (4) Major depressive disorder: Status: Acute (5) Marijuana abuse: Status: Acute (6) Tobacco use disorder: Status: Acute (7) History of hypertension: Status: Acute Reason for Visit Reason for Visit: ABD PAIN/RESP. DISTRESS Hospital Course Hospital Course 63-year male who was admitted for management evaluation of pancreatitis, his D- dimer was high, CTA chest and pelvis was done which did not show any thrombolic disease however CT chest did supervisor opening and picking miliary pulmonary nodule 2 mm, patient is endorsing cough, active smoker, drinks 4-6 beers daily, patient is wanting to go home he had decided not to stay in the hospital I have told him that he is requiring IV fluids opioids antiemetics and probably workup is needed for pulmonary nodule. He is wanting to leave I will still prescribe him opioids, ondansetron/Zofran give him thiamine folic acid and given referral to see a petroleum engineer. I did tell him that considering his chronic cough he will need to see a petroleum engineer to see if he would require bronchoscopy and possibly biopsy of nodule to rule out malignancy. Physical Exam Narrative: Awake and alert Dehydrated Hypertensive Currently on room air Awake and alert GCS 15 Discharge Data Studies Completed and Pending Completed Studies During Hospitalization Category Date Time Status CTA chest abdomen pelvis [CT [facility] [id number]/ Cat Scan 03/12/24 00:20 Completed [id number]] Stat XR acute abdomen series [id number] Stat Exams 03/11/24 22:06 Completed Pending at discharge Category Date Time Status Complete Blood Count w/Auto AM LABS Lab 03/13/24 04:00 Ordered Comprehensive Metabolic Panel AM LABS Lab 03/13/24 04:00 Ordered Magnesium AM LABS Lab 03/13/24 04:00 Ordered Phosphorus AM LABS Lab 03/13/24 04:00 Ordered Radiology Impressions Chest/Abdomen X-ray 03/11/24 22:06 IMPRESSION: No acute findings. Moderate stool burden. Chest/Abdomen/Pelvis CTA 03/12/24 00:20 IMPRESSION: 1. No pulmonary emboli. 2. Innumerable bilateral miliary nodules throughout both lungs measuring up to 2 mm in size. These are nonspecific and were present on the prior abdominal CT dated 12/12/2023. 3. Fat stranding surrounding the head, neck, body and tail of the pancreas no pancreatic ductal dilatation. Findings can be seen the setting of acute pancreatitis. Correlate with lipase levels. Laboratory Results WBC 10.07 10^3/uL (3.29-11.43) 03/11/24 22:01 Corrected WBC Cancelled 03/11/24 21:13 RBC 5.30 10^6/uL (3.85-5.65) 03/11/24 22:01 Hgb 17.50 g/dL (11.27-16.99) H 03/11/24 22:01 Hct 50.3 % (37-53) 03/11/24 22: MCV 94.9 fl (82-101) 03/11/24 22:01 MCH 33.0 pg (27-33) 03/11/24 22: MCHC 34.8 g/dL (30-55) 03/11/24 22:01 RDW 12.2 % (12.1-15.1) 03/11/24 22: Plt Count 223 10^3/cmm (157-399) 03/11/24 22:01 MPV 9.7 fL (7.4-10.4) 03/11/24 22:01 Gran % Cancelled 03/11/24 21:13 Neut % (Auto) 76.0 % 03/11/24 22:01 Lymph % (Auto) 14.1 % 03/11/24 22:01 [place] % (Auto) 5.8 % 03/11/24 22:01 Eos % (Auto) 3.0 % 03/11/24 22:01 Baso % (Auto) 0.5 % 03/11/24 22:01 Neut # (Auto) 7.66 10^3/uL (1.8-7.7) 03/11/24 22:01 Lymph # (Auto) 1.4 10^3/uL (0.8-4.8) 03/11/24 22:01 [place] # (Auto) 0.6 10^3/uL (0.2-0.9) 03/11/24 22:01 Eos # (Auto) 0.3 10^3/uL (0.0-0.8) 03/11/24 22:01 Baso # (Auto) 0.1 10^3/uL (0.0-0.1) 03/11/24 22:01 Absolute Gran (auto) Cancelled 03/11/24 21:13 Nucleated RBC % (auto) 0 % 03/11/24 22:01 Nucleated RBCs # 0.0 /100WBC 03/11/24 22:01 D-Dimer 2.24 ug/mLFEU (0-0.59) H 03/11/24 22:01 Sodium 135 mmol/L (136-145) L 03/11/24 22:01 Potassium 4.1 mmol/L (3.5-5.1) 03/11/24 22:01 Chloride 96 mmol/L (98-107) L 03/11/24 22:01 Carbon Dioxide 25 mmol/L (22-29) 03/11/24 22:01 Anion Gap 18.1 (5-19) 03/11/24 22:01 BUN 15 mg/dL (8-23) 03/11/24 22:01 Creatinine 0.9 mg/dL (0.7-1.2) 03/11/24 22:01 GFR Calculation 84.7 mL/min (90-130) L 03/11/24 22:01 Glucose 67 mg/dL (65-115) 03/11/24 22:01 Calculated Osmolality 279 mOsm/kg (285-295) L 03/11/24 22:01 Lactic Acid 1.5 mmol/L (0.5-2.2) 03/11/24 22:01 Calcium 9.2 mg/dL (8.5-10.5) 03/11/24 22:01 Total Bilirubin 0.7 mg/dL (0.15-1.2) 03/11/24 22:01 AST 60 U/L (0-40) H 03/11/24 22:01 ALT 55 U/L (0-41) H 03/11/24 22:01 Alkaline Phosphatase 99 U/L (40-130) 03/11/24 22:01 Troponin T Baseline 10 ng/L (0-15) 03/11/24 22:01 Troponin T 120 Minute 8.55 ng/L (0-15) 03/11/24 23:09 Delta Troponin T -1.45 ABS# (0-10) L 03/11/24 23:09 Troponin T Hi Sens 6Hr 15.36 ng/L (0-15) H 03/12/24 04:13 Troponin T Hi Sens 6Hr Delta 5.36 ng/L (0-12) 03/12/24 04:13 C-Reactive Protein 6.2 mg/L (0.0-4.9) H 03/11/24 22:01 Total Protein 7.4 g/dL (6.6-8.7) 03/11/24 22:01 Albumin 4.5 g/dL (3.5-5.2) 03/11/24 22:01 Globulin 2.9 g/dL (1.3-4.6) 03/11/24 22:01 Triglycerides 97 mg/dL (0-150) 03/11/24 23:09 Lipase 6877 U/L (13-60) H 03/11/24 22:01 Urine Color Yellow (Yellow) 03/11/24 21:49 Urine Appearance Clear (CLEAR) 03/11/24 21:49 Urine pH 5.5 (5-7) 03/11/24 21:49 Ur Specific [employer] [place] 1.010 (1.005-1.030) 03/11/24 21:49 Urine Protein Negative (Negative) 03/11/24 21:49 Urine Glucose (UA) Negative (Normal) 03/11/24 21:49 Urine Ketones Negative (Negative) 03/11/24 21:49 Urine Blood Negative (Negative) 03/11/24 21:49 Urine Nitrate Negative (Negative) 03/11/24 21:49 Urine Bilirubin Negative (Negative) 03/11/24 21:49 Urine Urobilinogen 1.0 mg/dL (Negative) 03/11/24 21:49 Ur Leukocyte Esterase Negative (Negative) 03/11/24 21:49 Urine RBC 0-2 /hpf (0-2) 03/11/24 21:49 Urine WBC 0-5 /hpf (0-5) 03/11/24 21:49 Ur Squamous Epith Cells 0-5 /hpf (0-5) 03/11/24 21:49 Amorphous Sediment Not Reportable 03/11/24 21:49 Urine Bacteria None seen /hpf (NONE) 03/11/24 21:49 Hyaline Casts 0-4 /lpf H 03/11/24 21:49 Urine Opiates Screen Negative ng/mL (Negative) 03/11/24 21:49 Ur Barbiturates Screen Negative ng/mL (Negative) 03/11/24 21:49 Ur Phencyclidine Scrn Negative ng/mL (Negative) 03/11/24 21:49 Ur Amphetamines Screen Negative ng/mL (Negative) 03/11/24 21:49 U Benzodiazepines Scrn Negative ng/mL (Negative) 03/11/24 21:49 Urine Cocaine Screen Negative ng/mL (Negative) 03/11/24 21:49 U Marijuana (THC) Screen Negative ng/mL (Negative) 03/11/24 21:49 Ethyl Alcohol 36 mg/dL (0-10) H 03/11/24 22:01 Vitals Last Vital Signs Temp 98.1 F 03/12/24 07:46 Pulse 85 03/12/24 07:46 Resp 24 H 03/12/24 08:49 BP 163/81 03/12/24 07:46 Pulse Ox 91 03/12/24 07:46 O2 Del Method Room Air 03/12/24 07:46 Discharge Plan Discharge Patient Disposition: Left Against Medical Advice Condition: Stable Prescriptions: New hydrocodone-acetaminophen 5-325 mg tablet 1 tab PO BID PRN (Reason: pain) Qty: 14 0RF folic acid 1 mg Tablet 1 mg PO DAILY Qty: 30 0RF ondansetron HCl 4 mg Tablet 4 mg PO Q8H PRN (Reason: Nausea) Qty: 10 0RF albuterol sulfate 90 mcg/actuation HFA aerosol inhaler 2 inh inhalation Q8H PRN (Reason: shortness of breath or wheezing) Qty: 6.7 4RF thiamine mononitrate (vit B1) [Vitamin B-1 (mononitrate)] 100 mg Tablet 100 mg PO DAILY Qty: 30 0RF fluticasone propion-salmeterol [Advair HFA] 115-21 mcg/actuation HFA aerosol inhaler 2 inh inhalation BID Qty: 12 3RF Incruse Ellipta 62.5 mcg/actuation blister with device 1 inh inhalation DAILY Qty: 30 3RF No Action No Known Home Medications Referrals: Gabriella Perez MD [Physician] - 1-3 days Discharge Attestations Time Spent in Discharge Care*: less than 30 min Quality Metrics Clinical Quality Measures [ No reported AMI, CVA or VTE this stay] Coding Level of Care Code Acute Code for Chg Fwd Diagnoses Pancreatitis K85.90 Transaminitis R74.01 Alcohol abuse F10.10 Major depressive disorder F32.9 Marijuana abuse F12.10 Tobacco use disorder F17.200 History of hypertension Z86.79
== END 2024-03-12 11:48 | disposition left against medical advice (07) ==
LOC: ER 03-12 01:48 → MEDSURG 03-12 01:54
PROVIDERS: Admitting Provider Internal Medicine; Emergency Provider Emergency Medicine; Visit Provider Internal Medicine
DX: K85.90 Acute pancreatitis without necrosis or infection, unspecified (principal); R74.01 Elevation of levels of liver transaminase levels; F10.10 Alcohol abuse, uncomplicated; F32.9 Major depressive disorder, single episode, unspecified; F12.10 Cannabis abuse, uncomplicated; F17.200 Nicotine dependence, unspecified, uncomplicated; Z86.79 Personal history of other diseases of the circulatory system; R05.3 Chronic cough
CPT/HCPCS: 36415; 71275; 74022; 74174; 80053; 80306; 80307; 81001; 83605; 83690; 84478; 84484; 85025; 85378; 86140; 93005; 96361; 96372; 96374; 96375; 96376; 99285; G0378; J1170; J1650; J2270; J2405; J7030; J7120; Q9967

== ENCOUNTER 2024-08-16 21:21 | Emergency (ER) | payer MEDICARE, SELFPAY ==
[2024-08-16 21:23] VITALS: BP 172/100; PULSE 107; RESP 22; TEMP 37.3; O2SAT 95; BMI 27.4
--- NOTE | 2024-08-16 21:30 | XRR_ITS ---
PROCEDURE INFORMATION: Exam: XR Chest Exam date and time: 08/16/2024 9:35 PM Age: 63 years old Clinical indication: Patient HX: PT arrives via EMS by [facility] with C/O generalized weakness. Per EMS PT has been too weak to preform his adl's and has a cough. Per EMS PT had HX of alcoholism. PT was hypertensive in route. Per EMS PT has chest wall pain due to his cough. PT has HX of hep c and is noncompliant with medications. PT admitted to EMS he drank a few beers this morning. TECHNIQUE: Imaging protocol: Radiologic exam of the chest. Views: 1 view. COMPARISON: CT [facility] [id number] 03/12/2024 12:29 AM FINDINGS: Lungs: Unremarkable. No consolidation. Pleural spaces: Unremarkable. No pleural effusion. No pneumothorax. Heart/Mediastinum: Unremarkable. No cardiomegaly. Bones/joints: Unremarkable. XR/XR chest 1V portable [id number] IMPRESSION: No acute findings.
[2024-08-16 21:46] VITALS: BP 172/100; PULSE 104; RESP 16; O2SAT 93
[2024-08-16 21:56] LABS: Basophils # 0.1 10^3/uL (0.0-0.1); Basophils % 0.9 %; Eosinophils # 0.5 10^3/uL (0.0-0.8); Eosinophils % 7.6 %; Lymphocytes # 1.8 10^3/uL (0.8-4.8); Lymphocytes % 28.7 %; Mean Corpuscular HGB Conc 33.8 g/dL (30-55); Mean Corpuscular Hemoglobin 32.2 pg (27-33); Mean Corpuscular Volume 95.2 fl (82-101); Mean Platelet Volume 9.4 fL (7.4-10.4); Monocytes # 0.5 10^3/uL (0.2-0.9); Monocytes % 7.6 %; Neutrophils # 3.48 10^3/uL (1.8-7.7); Neutrophils % 54.4 %; Nucleated Red Blood Cells % 0 %; Platelet Count 214 10^3/cmm (157-399); Red Blood Count 5.25 10^6/uL (3.85-5.65); Red Cell Distribution Width 12.4 % (12.1-15.1); White Blood Count 6.41 10^3/uL (3.29-11.43)
[2024-08-16 22:09] VITALS: BP 177/91; PULSE 106; RESP 24; O2SAT 93
[2024-08-16 22:09] LABS: Lactic Sepsis W/Reflex 1.3 mmol/L (0.5-2.2)
[2024-08-16 22:21] LABS: Alanine Aminotransferase 38 U/L (0-41); Albumin Level 4.5 g/dL (3.5-5.2); Alkaline Phosphatase 90 U/L (40-130); Anion Gap 15.7 (5-19); Aspartate Amino Transferase 39 U/L (0-40); Blood Urea Nitrogen 10 mg/dL (8-23); Calcium 9.4 mg/dL (8.5-10.5); Carbon Dioxide 27 mmol/L (22-29); Chloride 101 mmol/L (98-107); Creatinine Clr Calc Pharmacy 80.0051; Globulin 3.2 g/dL (1.3-4.6); Glomerular Filtration Rate 84.7 mL/min (90-130); Glucose 91 mg/dL (65-115); Magnesium 2.3 mg/dL (1.7-2.3); NT Pro B Type Natriuretic Pept 230 pg/mL (0-125); Osmolality Calculated 289 mOsm/kg (285-295); Potassium 3.7 mmol/L (3.5-5.1); Sodium 140 mmol/L (136-145); Thyroid Stimulating Hormone 4.07 uIU/mL (0.27-4.20); Total Bilirubin 0.5 mg/dL (0.15-1.2); Total Protein 7.7 g/dL (6.6-8.7)
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
[2024-08-16 22:32] VITALS: BP 170/106; PULSE 117; RESP 22; O2SAT 94
[2024-08-16 22:45] LABS: Bilirubin Urine Negative (Negative); Blood Urine Negative (Negative); Glucose Urine UA Negative (Normal); Ketones Urine Negative (Negative); Leukocyte Esterase Urine Negative (Negative); Nitrate Urine Negative (Negative); Protein Urine Negative (Negative); Urine Appearance Clear (CLEAR); Urine Color Yellow (Yellow); pH Urine 5.5 (5-7)
[2024-08-16 22:52] LABS: Covid PCR NEGATIVE (Negative); Influenza A NEGATIVE (Negative); Influenza B NEGATIVE (Negative); Respiratory Syncytial Virus Ce NEGATIVE (Negative)
[2024-08-16 22:53] LABS: Amphetamines Screen Urine Negative (Negative); Barbiturates Screen Urine Negative (Negative); Benzodiazepines Screen Urine Negative (Negative); Cocaine Screen Urine Negative (Negative); Opiate Screen Urine Negative (Negative); PCP Screen Urine Negative (Negative); THC Screen Urine Positive (Negative)
[2024-08-16 23:15] LABS: Add Urine Microscopic? YES; Bacteria Urine None Seen /hpf; Hyaline Casts Urine 0-4 /lpf; RBC Urine 0-2 /hpf (0-2); Squamous Epithelial Cell Urine 0-5 /hpf (0-5); WBC Urine 0-5 /hpf (0-5)
[2024-08-16 23:39] VITALS: BP 156/88; PULSE 99; RESP 24; O2SAT 93
[2024-08-17] VITALS (17 sets, daily range): BP systolic 150–238; BP diastolic 76–149; PULSE 66–111; RESP 15–28; O2SAT 93–100
[2024-08-17] MEDS: sodium chloride 0.9% 1,000 ML 999 ML IV (00:40)
--- NOTE | 2024-08-17 00:57 | CTR_ITS ---
PROCEDURE INFORMATION: Exam: CTA Chest With Contrast Exam date and time: 08/17/2024 2:26 AM Age: 63 years old Clinical indication: Cough and dyspnea and shortness of breath; Cough with hemorrhage; Additional info: Sudden hypoxia with hemoptysis TECHNIQUE: Imaging protocol: Computed tomographic angiography of the chest with contrast. Exam focused on the arteries. 3D rendering (Not supervised by radiologist): MIP and/or 3D reconstructed images were created by the technologist. Radiation optimization: All CT scans at this facility use at least one of these dose optimization techniques: automated exposure control; mA and/or kV adjustment per patient size (includes targeted exams where dose is matched to clinical indication); or iterative reconstruction. Contrast material: OMNI 350; Contrast volume: 100 ml; Contrast route: INTRAVENOUS (IV); [facility] [id number] 03/12/2024 12:29 AM RADIATION DOSE METRICS: Total DLP (mGy-cm): 409.08 FINDINGS: Pulmonary arteries: Normal. No pulmonary emboli. Aorta: Unremarkable. No aortic aneurysm. No aortic dissection. Lungs: There is a stable 6.5 mm ground-glass nodularity seen in the right posterior hemithorax. It appears stable compared with 03/12/2024. A 2nd tiny ground-glass opacity is seen in the right posterior hemithorax medially measuring 4.7 mm. Pleural spaces: Unremarkable. No pneumothorax. No pleural effusion. Heart: Unremarkable. No cardiomegaly. No pericardial effusion. Coronary arteries: There are no coronary artery calcifications. Lymph nodes: Unremarkable. No enlarged lymph nodes. Bones/joints: Unremarkable. No acute fracture. Soft tissues: Unremarkable. Other findings: Numerous calcified granulomas are seen bilaterally. CT/CT angio chest PE protcl [id number] IMPRESSION: 1. There is no evidence for pulmonary emboli. 2. Numerous calcified granulomas are seen in the hemithoraces bilaterally. 3. Two stable ground-glass nodularities are seen in the right posterior hemithorax compared 03/12/2024. Largest measures 6.5 mm. No further workup needed.
[2024-08-17] MEDS: tranexamic acid 1,000 MG/100 ML PREMIX 600 MG IV (01:05)
--- NOTE | 2024-08-17 01:09 | PC.NURSE ---
AT 0100 NURSE BEGAN TO HEAR PT COUGH, PROVIDER THEN CAME OUT OF ROOM AND INFORMED NURSE THAT PT WAS COUGHING UP BLOOD. NURSE THEN ROUNDED ON PT AND THE PT WAS EXPERIENCING ANXIETY ALONG WITH WHAT LOOKED LIKE A NOSE BLEED. PT DID ALSO COUGH BLOOD UP INTO A CLOTH. PT WAS STILL AAOX4 AT THIS TIME, BUT HR AND BP HAD INCREASED. NURSE THEN ADMINISTERED ORDERED MEDICATIONS FROM PROVIDER.
[2024-08-17] MEDS: labetalol 5 mg/mL SDV 20mL 10 MG IVP (02:07)
[2024-08-17] MEDS: sodium chloride 0.9% 500 ML IV (02:07)
[2024-08-17] MEDS: iohexol 350 mg/mL 500 mL Btl (per mL) IV (02:34)
[2024-08-17 08:38] LABS: Lipase 91 U/L (13-60)
== END 2024-08-17 09:08 | disposition home or self-care (01) ==
PROVIDERS: Emergency Medicine; Emergency Provider Family Medicine; PCP Family Medicine
DX: J44.1 Chronic obstructive pulmonary disease with (acute) exacerbation (principal); I10 Essential (primary) hypertension; Z11.52 Encounter for screening for COVID-19; Z72.0 Tobacco use
CPT/HCPCS: 36415; 71045; 71275; 80053; 80306; 81001; 83605; 83690; 83735; 83880; 84443; 85025; 87040; 87637; 96361; 96365; 96375; 99285; J3490; J7030; J7040

== ENCOUNTER 2025-05-05 19:09 | Emergency (ER) | payer MEDICARE, MEDICAID, SELFPAY ==
[2025-05-05 19:09] VITALS: BP 203/108; PULSE 87; RESP 16; TEMP 36.6; O2SAT 98; BMI 25.8
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
--- NOTE | 2025-05-05 19:23 | CTR_ITS ---
PROCEDURE INFORMATION: Exam: CT Abdomen And Pelvis Without Contrast Exam date and time: 05/05/2025 7:35 PM Age: 64 years old Clinical indication: Other: Blood in urine; Patient presents with upper abdominal pain, currently rated at 8/10, and painful, bloody urination ongoing x10 days. ; Additional info: Renal colic TECHNIQUE: Imaging protocol: Computed tomography of the abdomen and pelvis without contrast. Radiation optimization: All CT scans at this facility use at least one of these dose optimization techniques: automated exposure control; mA and/or kV adjustment per patient size (includes targeted exams where dose is matched to clinical indication); or iterative reconstruction. COMPARISON: CT abdomen pelvis w con* [id number] 12/12/2023 11:30 PM RADIATION DOSE METRICS: Total DLP (mGy-cm): 551.93 FINDINGS: Lungs: Emphysematous changes. Multiple punctate benign calcified granulomas in the basilar lung dawn. Liver: Normal. No mass. Gallbladder and biliary ducts: Calcified biliary sludge. Common bile duct dilated to 15 mm with hyperdense material suspected in the common bile duct at the level of the pancreatic head, correlation with ultrasound and/or MRCP advised. Pancreas: Normal. No ductal dilation. Spleen: Normal. No splenomegaly. Adrenal glands: Normal. No mass. Kidneys and ureters: Left kidney interpolar region 9.6 mm and 6.7 mm hyperdense lesions likely reflecting proteinaceous cysts, confirmation with renal ultrasound advised. Stomach and bowel: Prominent fluid in the small bowel without dilation may reflect an enteritis. Appendix: No evidence of appendicitis. Intraperitoneal space: Unremarkable. No free air. No significant fluid collection. Vasculature: Unremarkable. No abdominal aortic aneurysm. Lymph nodes: Unremarkable. No enlarged lymph nodes. Urinary bladder: Mild urinary bladder wall thickening and nondistention, please correlate for cystitis. Thickening appears somewhat asymmetric anteriorly measuring up to 8.9 mm. Consider urological consultation and cystoscopy to evaluate for possible mass. Reproductive: Unremarkable as visualized. Bones/joints: Unremarkable. No acute fracture. Soft tissues: Unremarkable. CT/CT abdomen pelvis wo con [id number] IMPRESSION: 1. Mild urinary bladder wall thickening and nondistention, please correlate for cystitis. Thickening appears somewhat asymmetric anteriorly measuring up to 8.9 mm. Consider urological consultation and cystoscopy to evaluate for possible mass. 2. Prominent fluid in the small bowel without dilation may reflect an enteritis. 3. Emphysematous changes. 4. Multiple punctate benign calcified granulomas in the basilar lung dawn. 5. Calcified biliary sludge. 6. Common bile duct dilated to 15 mm with hyperdense material suspected in the common bile duct at the level of the pancreatic head, correlation with ultrasound and/or MRCP advised. 7. Left kidney interpolar region 9.6 mm and 6.7 mm hyperdense lesions likely reflecting proteinaceous cysts, confirmation with renal ultrasound advised.
[2025-05-05 19:37] VITALS: BP 203/108; PULSE 83; RESP 20; O2SAT 98
[2025-05-05 19:52] LABS: Hematocrit 47.9 % (37-53); Hemoglobin 16.40 g/dL (11.27-16.99); Mean Corpuscular HGB Conc 34.2 g/dL (30-55); Mean Corpuscular Hemoglobin 33.5 pg (27-33); Mean Corpuscular Volume 98.0 fl (82-101); Nucleated Red Blood Cells % 0 %; Platelet Count 170 10^3/cmm (157-399); Red Blood Count 4.89 10^6/uL (3.85-5.65); White Blood Count 6.26 10^3/uL (3.29-11.43)
[2025-05-05 19:57] LABS: Add Urine Microscopic? NO
[2025-05-05 20:03] LABS: Glucose Urine UA Negative (Normal); Nitrate Urine Negative (Negative); Specific Gravity, Urine 1.003 (1.005-1.030)
[2025-05-05 20:14] LABS: Charge for UA Resulting for Rev
[2025-05-05 20:32] LABS: INR 0.84 (0.8-1.2); Prothrombin Time 12.20 SECONDS (12.1-14.9)
[2025-05-05 20:33] LABS: Partial Thromboplastin Time 31.9 SECONDS (23.9-36.7)
[2025-05-05 20:35] LABS: Lactic Sepsis W/Reflex 0.8 mmol/L (0.5-2.2)
[2025-05-05 20:36] LABS: Alanine Aminotransferase 123 U/L (0-41); Albumin Level 4.1 g/dL (3.5-5.2); Alkaline Phosphatase 255 U/L (40-130); Aspartate Amino Transferase 87 U/L (0-40); Blood Urea Nitrogen 9 mg/dL (8-23); Calcium 9.2 mg/dL (8.5-10.5); Carbon Dioxide 25 mmol/L (22-29); Chloride 99 mmol/L (98-107); Creatinine Clr Calc Pharmacy 86.4747; Globulin 3.3 g/dL (1.3-4.6); Glucose 92 mg/dL (65-115); Lipase 145 U/L (13-60); Osmolality Calculated 280 mOsm/kg (285-295); Sodium 136 mmol/L (136-145); Total Protein 7.4 g/dL (6.6-8.7)
[2025-05-05 20:38] LABS: Alcohol Level < 10 mg/dL (0-10); Anion Gap 16.3 (5-19); Potassium 4.3 mmol/L (3.5-5.1)
[2025-05-05 20:42] LABS: Ammonia 46 umol/L (16-60)
--- NOTE | 2025-05-05 20:43 | USR_ITS ---
PROCEDURE INFORMATION: Exam: US Abdomen, Limited; Right Upper Quadrant Exam date and time: 05/05/2025 10:49 PM Age: 64 years old Clinical indication: Abnormal findings; Abnormal lab test and abnormal radiologic finding of the abdomen; Radiologic exam and body structure: Ct-cbd; Other: Elevated bilirubin; Abdominal tenderness; Additional info: Bilirubin 8.1 TECHNIQUE: Imaging protocol: Real time ultrasound of the abdomen with image documentation. Limited exam focused on the right upper quadrant. COMPARISON: US liver [id number] 04/08/2024 8:14 AM FINDINGS: Liver: Hepatic steatosis. Gallbladder: Possible cholelithiasis with mild gallbladder wall thickening at 5 mm, findings are equivocal for developing cholecystitis, consider correlation with nuclear medicine HIDA scan. Biliary ducts: Common bile duct dilated to 13 mm without obstructing lesion, consider correlation with MRCP. Pancreas: Visualized pancreas is unremarkable. Right kidney: Normal. No mass. No hydronephrosis. US/US abdomen limited [id number] IMPRESSION: 1. Possible cholelithiasis with mild gallbladder wall thickening at 5 mm, findings are equivocal for developing cholecystitis, consider correlation with nuclear medicine HIDA scan. 2. Common bile duct dilated to 13 mm without obstructing lesion, consider correlation with MRCP. 3. Hepatic steatosis.
[2025-05-05 20:47] VITALS: BP 183/97; PULSE 79; RESP 16; O2SAT 95
[2025-05-05 22:00] VITALS: BP 167/78; PULSE 79; RESP 16; O2SAT 96
[2025-05-05] MEDS: piperacillin-tazobactam 4.5 GM in sodium chloride 0.9% (plus) 50 ML IV (23:46)
[2025-05-05] MEDS: ondansetron 2 mg/ML SDV 2 mL 4 MG IVP (23:46)
[2025-05-05] MEDS: morphine 4 mg/mL SDV 1 mL IVP (23:46)
[2025-05-05 23:47] VITALS: BP 191/157; PULSE 100; RESP 18; O2SAT 97
[2025-05-06 01:59] VITALS: BP 161/86; PULSE 87; O2SAT 95
== END 2025-05-06 02:04 | disposition short-term general hospital (02) ==
PROVIDERS: Emergency Medicine; Emergency Provider Physician Assistant; PCP Family Medicine
DX: K80.42 Calculus of bile duct with acute cholecystitis without obstruction (principal); E80.7 Disorder of bilirubin metabolism, unspecified; Z72.0 Tobacco use; I10 Essential (primary) hypertension
CPT/HCPCS: 36415; 74176; 76705; 80053; 80307; 81003; 82140; 83605; 83690; 85025; 85610; 85730; 96365; 96375; 99285; J2270; J2405; J2543; J9999

== ENCOUNTER 2025-06-30 17:01 | Observation (INO) | payer MEDICARE, MEDICAID, SELFPAY ==
[2025-06-30] VITALS (7 sets, daily range): BP systolic 160–193; BP diastolic 83–104; PULSE 76–88; RESP 16–18; TEMP 36.7–36.8; O2SAT 94–99
--- NOTE | 2025-06-30 16:57 | CTR_ITS ---
PROCEDURE INFORMATION: Exam: CT Head Without Contrast Exam date and time: 06/30/2025 5:02 PM Age: 64 years old Clinical indication: Stroke-like symptoms; Altered mental status/memory loss; Additional info: Symptoms of acute stroke TECHNIQUE: Imaging protocol: Computed tomography of the head without contrast. Radiation optimization: All CT scans at this facility use at least one of these dose optimization techniques: automated exposure control; mA and/or kV adjustment per patient size (includes targeted exams where dose is matched to clinical indication); or iterative reconstruction. Other technique: STROKE PROTOCOL was implemented. COMPARISON: CT head wo con* [id number] 10/14/2022 12:52 PM RADIATION DOSE METRICS: Total DLP (mGy-cm): 1174.43 FINDINGS: Brain: There is mild cortical atrophy. Low-density changes in the white matter are consistent with nonspecific small vessel chronic ischemic change. There is no intracranial mass, hemorrhage or edema. Cerebral ventricles: No ventriculomegaly. Paranasal sinuses: Visualized sinuses are unremarkable. No fluid levels. Mastoid air cells: Visualized mastoid air cells are well aerated. Bones: Unremarkable. No acute fracture. Soft tissues: Unremarkable. CT/CT head thrombolytic [id number] IMPRESSION: No acute intracranial findings. ASSESSMENT: ASPECTS ([place] Stroke Program Early CT Score) is 10.
--- OUTSIDE RECORDS SUMMARY | 2025-06-30 17:06 | XMS_ITS | Data Portability ---
Author Organization [facility] Isamar Nolasco [facility] Address [address] [place] [address] Assessment Encounter Date Assessment Date Assessment LastModified by Organization Details LastModified Time 03/19/2024 03/19/2024 he is eating wel l and drinking well no diarrhea we had tequila discussion about smoking anything and alcohol and how it has affected his body and how the alcohol has lead to thee pancreas issue. i used very very simple terms. he was good to ask questions and ask me to simplify anything he didn't understand. i feel from his acknowledgment that he understands what is going on with his body and what it takes to get better now. [email or web address] Not available 03/19/2024 13:07:07 03/31/2024 03/31/[address] scan of the abdomen is not very descriptive of the liver so, i will get an u/s. we discussed at length the risks of alcohol and hepatitis c to the liver and over all well being. we discussed the risks and benefits of hep c tx and risks of not tx hep c. we discussed my strong recommendation that he do inpt alcohol rehabilitation to increase his roasterman success. i recommended outpt counseling 12 step program etc to try to help support him through this process. he is aware that he must abstain from alcohol to be able to treat his hep c. Not available 03/31/2024 13:42:48 05/24/2025 05/24/2025 64-year-old male with a history of bile duct cancer presenting post-discharge for follow-up care. 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 He reports symptomatic relief following the intervention. Oncological management is pending further evaluation at [facility]. [email or web address] Not available 05/24/2025 15:19:03 Plan of Treatment Reminders Order Date Submit Date Provider Last Modified By Organization Details Last Modified Time Details Appointments None recorded. Lab lipase, serum or plasma 2023 [facility], [address], [place], [address], 23:52:29 hepatitis C genotype, serum or plasma 2023 [facility], [address], [address], [place], [address], 23:52:30 CBC 2023 [email or web address], [address] [place] [address] [address], [address], [place], [address], 08:29:15 CMP, serum or plasma 2023 [email or web address], [address] [place] [address] [address], [address], [place], [address], 08:29:15 afp (alpha-feto protein) tumor marker, serum or plasma 2023 [facility], [address] [place] [address], [address], [place], [address], 23:52:28 HBsAg (hepatitis B surface Ag), serum 2023 [facility], [address] [place] [address], [address], [place], [address], 23:52:25 hepatitis B surface Ab, qualitative , serum 2023 [facility], [address] [place] [address], [address], [place], [address], 4 23:52:27 hepatitis B virus core Ab, qualitative , serum 2023 [email or web address], [address] [place] [address], [address], [place], [address], 4 08:29:15 HIV (1+2) Ab screen, serum 2023 [facility], [address] [place] [address], [address], [place], [address], 5 22:50:48 CMP, serum or plasma 2023 [facility], [address], [address], [place], [address], 4 08:50:42 CBC 2023 [facility], [address] [facility], [address], [place], [address], 4 17:53:29 afp (alpha-feto protein) tumor marker, serum or plasma 2023 [facility], [address] [place] [address], [address], [place], [address], 5 22:50:48 HBsAg (hepatitis B surface Ag), serum 2023 024 [facility], [address] [place] [address], [address], [place], [address], 5 22:50:48 hepatitis B surface Ab, qualitative , serum 2023 024 [facility], [address] [place] [address], [address], [place], [address], 5 22:50:48 hbcab (hepatitis B core Ab) igm, serum 2023 024 [facility], [address] [place] [address], [address], [place], [address], 4 23:52:27 hepatitis C genotype, serum or plasma 2023 [facility], [address] [place] [address], [address], [place], [address], 5 22:50:49 INR, blood 2023 [facility], [address], [address] [address], [address], 5 22:50:49 afp (alpha-feto protein) tumor marker, serum or plasma 2023 024 [facility], [address] [place] [address], [address], [place], [address], 5 22:50:49 hepatitis C virus Ab, serum 2023 024 [facility], [address] [place] [address], [address], [place], [address], 4 12:37:12 tb (M tuberculosi s), ifn-gamma cade, blood 2023 024 [facility], [address] [place] [address], [address], [place], [address], 4 08:10:57 mycoplasma Ab, serum 2023 [address] [facility] [address] [address], [address], [place], [address], 4 08:10:58 SARS CoV 2 RNA, QL, nasopharynx 2023 024 [email or web address] [facility] [address] [place], [address], 4 15:37:54 Referral pulmonologi referral - grajeda pulmonogist 2023 024 [email or web address] Not available 10:38:43 Procedures None recorded. Surgeries None recorded. Imaging US, liver - 16056 2023 024 [facility] Not available 10:30:01 CT, chest, w/o contrast - june 12 - if at all possible. 2023 024 [email or web address] 2 [facility], [address] [place], [address], 4 10:25:32 Medication Orders omeprazole 20 mg capsule,del ayed release 2023 024 [email or web address] [address], [address], 5 12:29:26 Trelegy Ellipta 100 mcg-62.5 mcg-25 mcg powder for inhalation 2023 024 [email or web address] [address], [address], 12:29:30 albuterol sulfate HFA 90 mcg/actuati on aerosol inhaler 2023 024 [email or web address] [address], [address], 12:13:00 Patient TargetsNo targets recorded. Patient Instructions Encounter Date Encounter Id Patient Instructions Last Modified By Organization Details Last Modified Time 05/24/2025 [id number] - Follow up with [facility] for further oncology evaluation. - Monitor for symptoms like yellowing skin or dark urine. - Avoid alcohol to prevent complications. - If no update from the referral, contact our office or the hospital nurse. - Seek medical care if experiencing increased pain, jaundice, or reduced urination. [email or web address] Not available 05/24/2025 12:53:24 I discussed with the patient his recent diagnosis of bile duct cancer and the implications of this condition. We reviewed the nature of his symptoms and the role of the stent in alleviating obstruction. Emphasized the importance of follow-up with [facility] for specialized oncology care. I advised the patient to monitor for jaundice or changes in urinary output as possible indications of stent obstruction. We also reviewed his alcohol use and advised cessation to prevent any further complications, particularly given the unclear history of hepatitis C. Lastly, I encouraged reaching out for assistance if referral processes were delayed. [email or web address] Not available 05/24/2025 12:53:24 Reason for Referral [employer] Referral for C T of chest abnormal grajeda pulmonogist Referring Physician: Lamberto Lyles, Family Medicine, Encounter Date: 03/19/2024 Results Created Date Observation Date Name Description Value Unit Range Abnormal Flag Note LastModifiedBy Organization Detail LastModifiedTime 05/04/2005/04/2024 CBC WBC 7.2 x10 4.5-10 .5 Not Available [facility] [address], [place], [address], 05/04/2024 17:53:29 05/04/2005/04/2024 CBC RBC 4.74 x10 4.30-5 .90 Not Available [facility] [address], [place], [address], 05/04/2024 17:53:29 05/04/2005/04/2024 CBC HGB 16.5 g/dL 13.5-1 8.0 Not Available [facility] [address] [facility] [address], [place], [address], 05/04/2024 17:53:29 05/04/2005/04/2024 CBC HCT 45.3 % 35.0-6 0.0 Not Available [facility] [address] [facility] [address], [place], [address], 05/04/2024 17:53:29 05/04/2005/04/2024 CBC MCV 95.6 fL 80.0-9 9.9 Not Available [facility] [address] [facility] [address], [place], [address], 05/04/2024 17:53:29 05/04/2005/04/2024 CBC MCH 34.8 pg 27.0-3 2.0 high Not Available [facility] [address] [facility] [address], [place], [address], 05/04/2024 17:53:29 05/04/2005/04/2024 CBC MCHC 36.4 g/dL 32.0-3 6.0 high Not Available [facility] [address] [facility] [address], [place], [address], 05/04/2024 17:53:29 05/04/2005/04/2024 CBC RDW 12.6 % 11.5-1 4.5 Not Available [facility] [address] [facility], [place], [address], 05/04/2024 17:53:29 05/04/2005/04/2024 CBC plt 190.5 x10 150.0- 451.0 Not Available [facility] [address] [facility], [place], [address], 05/04/2024 17:53:29 05/04/2005/04/2024 CBC lymphocytes % 23.6 % 20.0-5 0.0 Not Available [facility] [address] [facility], [place], [address], 05/04/2024 17:53:29 05/04/20 24 05/04/2024 CBC granulcytes % 59.2 % 30.0-7 0.0 Not Available [facility] [address] [facility], [place], [address], 05/04/2024 17:53:29 05/04/20 24 05/04/2024 CBC monocytes % 8.9 % 2.0-16 .0 Not Available [facility] [address] [facility], [place], [address], 05/04/2024 17:53:29 05/04/2005/04/2024 CBC granulcytes# 4.3 x10 Not Teressa ilable [facility] [address] [facility] [address], [place], [address], 05/04/2024 17:53:29 05/04/2005/04/2024 CBC lymphocytes # 1.7 x10 Not Available [facility] [address] [facility] [address], [place], [address], 05/04/2024 17:53:29 05/04/2005/04/2024 CBC monocytes # 0.6 x10 Not Avai lable [facility] [address] [facility], [place], [address], 05/04/2024 17:53:29 05/05/2005/05/2024 CMP (MALE ) glucose 94.0 mg/dL 60.0-9 9.0 Not Available [facility] [address] [facility], [place], [address], 05/05/2024 08:50:42 05/05/2005/05/2024 CMP (MALE ) BUN (blood urea nitrogen) 14.0 mg/dL 10.0-2 6.0 Not Available [facility] [address] [facility] [address] [place], [address], 05/05/2024 08:50:42 05/05/2005/05/2024 CMP (MALE ) creatinine (serum) 0.9 mg/dL 0.4-1. 5 Not Available [facility] [address] [facility], [place], [address], 05/05/2024 08:50:42 05/05/20 24 05/05/2024 CMP (MALE ) BUN/creatini ne ratio 15.22 ratio Not Available [facility] [address] [facility], [place], [address], 05/05/2024 08:50:42 05/05/2005/05/2024 CMP (MALE ) eGFR calculated 87.[address] [facility] [address] [facility] [place], [address], 05/05/2024 08:50:42 05/05/20 24 05/05/2024 CMP (MALE ) total protein 8.1 g/dL 6.0-8. 5 Not Available [facility] [address] [facility], [place], [address], 05/05/2024 08:50:42 05/05/20 24 05/05/2024 CMP (MALE ) total bilirubin 0.9 mg/dL 0.2-1. 3 Not Available [facility] [address] [facility], [place], [address], 05/05/2024 08:50:42 05/05/20 24 05/05/2024 CMP (MALE ) albumin 4.6 g/dL 3.5-5. 5 Not Available [facility] [address] [facility], [place], [address], 05/05/2024 08:50:42 05/05/20 24 05/05/2024 CMP (MALE ) globulin 3.5 calc Not Available [facility] [address] [facility], [place], [address], 05/05/2024 08:50:42 05/05/2005/05/2024 CMP (MALE ) AST (SGOT) 49.0 U/L 0.0-46 .0 high Not Available [facility] [address] [facility], [place], [address], 05/05/2024 08:50:42 05/05/20 24 05/05/2024 CMP (MALE ) altv (SGPT) 35.0 U/L 13.0-6 9.0 normal Not Available [facility] [address] [facility], [place], [address], 05/05/2024 08:50:42 05/05/2005/05/2024 CMP (MALE ) A/G ratio 1.3 ratio Not Available [facility] [address] [facility] [address], [place], [address], 05/05/2024 08:50:42 05/05/2005/05/2024 CMP (MALE ) ALP phos 73.0 U/L 30.0-1 40.0 normal Not Available [facility] [address] [facility], [place], [address], 05/05/2024 08:50:42 05/05/2005/05/2024 CMP (MALE ) calcium 9.5 mg/dL 8.4-10 .5 Not Available [facility] [address] [facility] [address], [place], [address], 05/05/2024 08:50:42 05/05/20 24 05/05/2024 CMP (MALE ) sodium 138.0 mmol/ L 136.0- 145.0 Not Available [facility] [address] [facility], [place], [address], 05/05/2024 08:50:42 05/05/2005/05/2024 CMP (MALE ) potassium 4.6 mmol/ L 3.5-5. 1 Not Available [facility] [address] [facility], [place], [address], 05/05/2024 08:50:42 05/05/2005/05/2024 CMP (MALE ) chloride 105.0 mmol/ L 98.0-1 10.0 normal Not Available [facility] [address] [facility], [place], [address], 05/05/2024 08:50:42 05/05/2005/05/2024 CMP (MALE ) C02 31.0 mmol/ L 22.0-3 1.0 Not Available [facility] [address] [facility], [place], [address], 05/05/2024 08:50:42 05/05/20 24 05/05/2024 CMP (MALE ) anion gap 2.0 calc Not Available [facility] [address] [facility], [place], [address], 05/05/2024 08:50:42 05/05/2005/05/2024 CMP (MALE ) osmolality 285.4 calc Not Available [facility] [address] [facility], [place], [address], 05/05/2024 08:50:42 03/19/20 24 03/25/2024 HEPAT ITIS C AB W/REF L TO HCV RNA, QN, PCR hepatitis C antibody REACTI VE non-re active abnormal Based on this resul t, the sampl e will be teste d for HCV RNA by a Nucle ic Acid Ampli ficat ion Test (NAAT ) to deter mine if the patie nt has a curre nt activ e infec tion. Not Available [facility] [place] [address] [place], [address], 03/25/2024 12:37:12 03/19/2003/25/2024 HCV RNA, QUANT ITATI VE REAL TIME PCR HCV RNA, quantitative real time PCR 209980 0 IU/mL not detect ed high Not Available [facility] [place] [address] [place], [address], 03/25/2024 12:37:13 03/19/20 24 03/25/2024 HCV RNA, QUANT ITATI VE REAL TIME PCR HCV RNA, quantitative real time PCR 6.38 log_I U/mL not detect ed high HCV RNA was detec kutr. This resul t provi janeth labor atory evide nce of a curre nt activ e HCV infec tion. Not Available [facility] [place] [address] [place], [address], 03/25/2024 12:37:13 03/19/20 24 03/25/2024 HCV RNA, QUANT ITATI VE REAL TIME PCR comment For more infor chet felton on this test, go to: http: //berna felix stdia gnost ics.c om/fa q/FAQ 22v1 (This link is being provi ded for infor chet londono/ educmaia merlos l purpo ses only. ) This assay is inten ded for use as an aid in the diagn osis of HCV infec tion and the manag ement of HCV infec kurt patie nts under going anti- viral thera py. Not Available [facility] [place] [address] [place], [address], 03/25/2024 12:37:13 03/19/2003/25/2024 MYCOP LASMA PNEUM ONIAE ANTIB RAMY (IGM) mycoplasma pneumoniae antibody (IgM) 566 U/mL normal REFER ENCE RANGE : <770 U/mL Inter preti ve crite irina: <770 U/mL Negat yecenia 770-9 50 U/mL Low posit yecenia >950 U/mL Posit yecenia A posit yecenia IgM antib ramy resul t is consi stent with recen t infec tion. Howev er, a negat yecenia resul t does not neces saril y rule out recen t infec tion as some indiv idual s may not mount anoth er IgM respo nse, if previ ously infec kurt. Not Available [address] [place], [address], 03/25/2024 12:37:13 03/19/20 24 03/25/2024 QUANT IFERO N(R)- TB GOLD PLUS, 1 TUBE quantiferon( R)-TB gold plus, 1 tube NEGATI VE negati ve normal Negat yecenia test resul t. M. acosta lazcano is compl ex infec tion unlik mc. Not Available [address], [address], 03/25/2024 12:37:14 03/19/20 24 03/25/2024 QUANT IFERO N(R)- TB GOLD PLUS, 1 TUBE nil 0.03 IU/mL normal Not Available [address], [address], 03/25/2024 12:37:14 03/19/20 24 03/25/2024 QUANT IFERO N(R)- TB GOLD PLUS, 1 TUBE mitogen-nil >10.00 IU/mL normal Not Available [address], [address], 03/25/2024 12:37:14 03/19/20 24 03/25/2024 QUANT IFERO N(R)- TB GOLD PLUS, 1 TUBE TB1-nil <0.00 IU/mL normal Not Available [address], [address], 03/25/2024 12:37:14 03/19/20 24 03/25/2024 QUANT IFERO N(R)- TB GOLD PLUS, 1 TUBE TB2-nil <0.00 IU/mL normal The Nil tube value refle cts the backg round inter feron gamma immun e respo nse of the patie nt's blood sampl e. This value has been subtr acted from the patie nt's displ ayed TB and Mitog en resul ts. Lower than expec kurt resul ts with the Mitog en tube preve nt false -nega tive Quant ifero n readi ngs by detec ting a patie nt with a poten tial immun e suppr essiv e condi tion and/o r subop timal pre-a nalyt ical speci men handl ing. The TB1 Antig en tube is coate d with the M. tuber culos is-sp ecifi c antig ens desig alison to elici t respo nses from TB antig en prime d CD4+ helpe r T-lym phocy pranav. The TB2 Antig en tube is coate d with the M. tuber culos is-sp ecifi c antig ens desig alison to elici t respo nses from TB antig en prime d CD4+ helpe r and CD8+ cytot oxic T-lym phocy pranav. For addit ional infor usha mcdowell e refer to https ://ed ati on.qu garrettAnnai Systems. Letsmake/f aq/FA Q204 (This link is being provi ded for infooren londono/ educa chelita l purpo ses only. ) Not Available [facility] [address] [place] [address], [address], 03/25/2024 12:37:14 03/19/20 24 03/19/2024 SARS CoV 2 RNA, QL, nasop haryn x COVID negati ve Not Available [facility]) [address] [place], [address], 03/19/2024 12:18:35 05/04/20 24 05/09/2024 HEPAT ITIS B SURFA CE ANTIG EN W/REF L CONFI RM hepatitis B surface antigen NON-RE ACTIVE non-re active normal For addit ional infor usha mcdowell e refer to http: //berna felton.que stdia gnost ics.c om/fa q/FAQ (This link is being provi ded for infor matio nal/ educa chelita l purpo ses only. ) Not Available [address] [address] [address] , [place], [address], 05/09/2024 23:52:25 05/04/20 24 05/09/2024 HEPAT ITIS B SURFA CE ANTIB RAMY QL hepatitis B surface antibody ql REACTI VE non-re active abnormal Not Available [facility] [address], [place], [address], 05/09/2024 23:52:26 05/04/20 24 05/09/2024 HEPAT ITIS B CORE ANTIB RAMY (IGM) hepatitis B core antibody (IgM) NON-RE ACTIVE non-re active normal For addit ional infor usha mcdowell e refer to http: //[facility].que stdia gnost ics.c om/fa q/FAQ (This link is being provi ded for infor matio nal/ educa chelita l purpo ses only. ) Not Available [place] [address] [facility] [place], [address], 05/09/2024 23:52:27 05/04/2005/09/2024 ALPHA FETOP ROTEI N, TUMOR MARKE R alpha fetoprotein, tumor marker 3.4 NG/mL <6.1 This test was perfo rmed using the Beckm an Coult er chemi lumin escen t metho d. Value s obtai alison from diffe rent assay metho ds canno t be used inter guerra eably . AFP level s, regar dless of value , shoul d not be inter prete d as absol [place] evide nce of the prese nce or absen ce of disea se. Not Available [facility] [place] [address] [place], [address], 05/09/2024 23:52:28 05/04/20 24 05/09/2024 LIPAS E lipase 72 U/L 7-60 high Not Available [facility] [address] [place], [address], 05/09/2024 23:52:29 05/04/20 24 05/09/2024 HEPAT ITIS C VIRAL RNA GENOT YPE, LIPA hepatitis C viral RNA genotype, lipa 2 normal The metho d used in this test is RT-PC R and rever se hybri dizat ion (Line Probe ) of the 5' UTR and core regio n of the HCV genom e. The laura tical perfo rmanc e kari cteri stics of this assay have been deter mined by [facility]. The modif icati ons have not been clear ed or appro kirsty by the FDA. This assay has been valid ated pursu ant to the CLIA regul ation s and is used for clini davida purpo ses. For addit ional infor usha mcdowell e refer to http: //[facility] matilde felton.Que stDia gnost ics.c om /faq/ HCVGe notyp ing (This link id being provi ded for infor chet nal/ educa chelita l purpo ses only. ) Not Available [facility] [address] [address], [place], [address], 05/09/2024 23:52:30 03/31/20 24 12/12/2023 CT, abdom en + pelvi s, w/ contr ast No observ ation record ed. [facility] [address] [facility] 1, [place], [address], 04/01/2024 09:48:06 04/09/20 24 04/08/2024 US, liver No observ ation record ed. [email or web address] [place] [address] [address], [place], [address], 04/09/2024 14:09:46 06/30/20 24 imagi ng/di agnos tic resul t No observ ation record ed. [email or web address] Not Available 2023 11:11:23 05/25/20 25 05/09/2025 upper endos copy proce dure (EGD) (PROC ) No observ ation record ed. [email or web address] Not Available 05/25 15:11:20 Result Notes None recorded. Problems Name Problem SNOMED Code Status Onset Date Resolution Date Notes Provider Name and Address Organization Details Recorded Time Dyspnea 005061957 Active 2023 [facility] 12:18:31 Chronic hepatitis C 922616404 Active 2023 Janeth Hunter melita [facility] 5 12:06:39 Upper abdominal pain 35057012 Active 2023 Jose Moya MD [address] [place] [address], [phone], [facility] 4 17:28:51 Gastritis 3549533 Active 2023 Jose Moya MD [address] [place] [address], [phone], [facility] 4 17:29:25 Harmful pattern of use of alcohol 78750043 Active 2023 Jose Moya MD [address] [place] [address], [phone], [facility] 4 12:26:48 Malignant adenomatous neoplasm 437458332 Active 2024 Gaviota hua [facility] 5 12:30:36 Problem Notes None recorded. Procedures Surgical History Date Name Laterality Status Provider Name and Address Organization Details Recorded Time endoscopic retrograd e cholangiopancreatography completed Gaviota Garcia [facility] 5 12:28:06 Imaging Results None recorded. Procedure Notes None recorded. Medical Equipment None Reported. Allergies No known drug allergies Medications Name Sig Start Date Stop Date Status Note LastModified by Organization Details LastModified Time Prescriptio n - Prior Authorizati on Request active Not Available Not Available N ot Available doxycycline hyclate 100 mg capsule take 1 capsule BY MOUTH TWICE DAILY FOR 10 DAYS 05/24 completed Not Available Not Available Not Available prednisone 20 mg tablet TAKE 1 TABLET BY MOUTH THREE TIMES DAILY FOR 3 DAYS, ONE TWICE DAILY FOR 2 DAYS, ONE DAILY FOR TWO DAYS 05/24 completed Not Available Not Available Not Available amlodipine 5 mg tablet TAKE 1 TABLET BY MOUTH DAILY 05/24 completed Not Available Not Available Not Available omeprazole 20 mg capsule,del ayed release take 1 capsule BY MOUTH EVERY DAY 05/24 completed Not Available Not Available Not Available fluticasone 100 mcg-salmete rol 50 mcg/dose blistr powdr for inhalation INHALE 1 PUFF into lungs TWICE DAILY FOR 30 DAYS 05/24 completed Not Available Not Available Not Available albuterol sulfate HFA 90 mcg/actuati on aerosol inhaler INHALE TWO PUFFS into lungs EVERY 4 HOURS as needed for SHORTNESS OF BREATH or wheezing 05/24 completed Not Available Not Available Not Available oxycodone 5 mg tablet TAKE 1 TABLET BY MOUTH EVERY 6 HOURS NEEDED FOR moderate pain max of FOUR PER day active Not Available Not Available No t Available metoprolol tartrate 25 mg tablet TAKE 1 TABLET BY MOUTH TWICE DAILY active Not Available Not Available No t Available Mavyret 100 mg-40 mg tablet Take 3 tablets every day by oral route for 90 days. 05/24 completed Not Available Not Available Not Available Trelegy Ellipta 100 mcg-62.5 mcg-25 mcg powder for inhalation INHALE 1 PUFF EVERY DAY 05/24 completed Not Available Not Available Not Available Vitals Date Recorded Body weight Body temperature Heart rate Oxygen saturation Systolic And Diastolic Provider Name and Address Organization Details Last Updated DateTime 4 26396.4 8 g 97.5 [degF] 83 /min 100 % 146/92 mm[Hg] Kayli Patel [facility], [facility] 4 12:15:59 Date Recorded Body weight Body temperature Heart rate Oxygen saturation Systolic And Diastolic Provider Name and Address Organization Details Last Updated DateTime 4 44720.8 9 g 97.7 [degF] 99 /min 96 % 160/100 mm[Hg] Kayli Patel [facility] 4 13:17:09 Date Recorded Respiratory rate Body height Body mass index (BMI) Body weight Body temperature Heart rate Oxygen saturation Systolic And Diastolic Provider Name and Address Organization Details Last Updated DateTime 4 20 /min 167.64 cm 28.2 kg/m2 58005.6 6 g 97.5 [degF] 88 /min 98 % 152/80 mm[Hg] DACIA PETERS [facility] 4 16:51:20 Date Recorded Body weight Body mass index (BMI) Body height Oxygen saturation Heart rate Respiratory rate Body temperature Systolic And Diastolic Provider Name and Address Organization Details Last Updated DateTime 5 73908.3 9 g 27.2 kg/m2 167.64 cm 97 % 103 /min 18 /min 97.5 [degF] 138/74 mm[Hg] Gaviota Garcia [facility] 5 11:58:40 Social History Question Answer Notes LastModified by [employer] ion Details LastModified Time Tobacco Smoking Status Current Every Day Smoker Kayli Patel [facility] 03/19/2024 12:12:25 Which Illicit Or Recreational Drugs Have You Used? Marijuana Information not available 03/19/2024 How Many Years Have You Used Illicit Or Recreational Drugs? 40 Information not available 03/19/2024 What Is Your Current Pack Years? 30ormorepacky ears 50 Years Information not available 03/19/2024 How Much Tobacco Do You Smoke? 1 PPD Information not available 03/19/2024 Sex: Unknown Functional Status Question Answer Note LastModified by Organizat ion Details LastModified Time Do you use any illicit or recreational drugs? Yes Information not available 03/19/2024 Do you or have you ever used any other forms of tobacco or nicotine? No Information not available 03/19/2024 What is your level of alcohol consumption? Heavy 6 beers per day Information not available 03/19/2024 Mental Status None recorded. Family History Nothing Reported. Medical History No medical history recorded. Immunizations Vaccine Type Date Status Note Provider Nam e and Address Organization Details Recorded Time Tdap 4 completed Alisia hua [facility] 03/26/2024 08:10:47 Td (adult), 2 Lf tetanus toxoid, preservative free, adsorbed 0 completed Alisia hua [facility] 03/26/2024 08:10:47 Hep A, adult 5 completed Alisia hua [facility] 03/26/2024 08:10:47 Past Encounters Encounter ID Performer Location Encounter Start Date Encounter Closed Date Diagnosis/Indication Diagnosis SNOMED-CT Code Diagnosis ICD10 Code Diagnosis IMO Codes Diagnosis Note [id number] Lamberto Lyles MD [facility] ([facility]) [address] [place] [phone] 5 03/19/2024 12:03:00 03/19/2024 13:25:44 Dyspnea 696388763 R06.00 Acute on c hronic pancreatitis 957046835 K85.80 Multiple n odules of lung 155672889 R91.8 Alcoholism 0224520 F10.2 0 declines counseling , 12 step program alcohol inpatient rehabilita tion.he has been up to 40 beers per day for at least 2 years. the last year or so he has cut back to 6-12 per day. he has cut back to 3 and thinks maybe he will keep weaning himself off. Cannabis d ependence, continuous 541592181 F12.20 Chronic ob structive pulmonary disease 90929981 J44.9 Exposure t o viral hepatitis 297542842 Z20.5 CT of chest abnormal 152 6433067 9328920 R93.89 Chronic cough 21480638 R 05.3 [id number] Lamberto Lyles MD [facility] ([facility]) [address] [place] [address] [id number] 5 03/31/2024 13:03:37 03/31/2024 14:48:19 Chronic active hepatitis C 976394425 B18.2 since he got the call about hep c, he has drank much less 4 beers in 4 days. no dt's no shakes no hallucinat ions. vs are stable Multiple n odules of lung 429467758 R91.8 [id number] Lamberto Lyles MD [facility] ([facility]) [address] [place] [address] [phone] 5 04/08/2024 09:59:58 04/09/2024 11:43:43 [id number] Jose Moya MD [facility] ([facility]) [address] [place] [address] [phone] 5 05/04/2024 16:38:20 05/04/2024 18:03:58 Chronic hepatitis C 389664565 B18.2 Will obtain additional lab work for evaluation for treatment. Discussed with the treatment of hepatitis C and answered all the patient's questions. Upper abdominal pain 831 80711 R10.10 Will add a lipase given his alcohol history for evaluation of his abdominal pain. Gastritis 3189626 K29.70 Patient could very well have gastritis related to alcohol use. Will start a PPI in the meantime as well. Recommend he follow-up with his PCP if symptoms are not improving. Harmful pa ttern of use of alcohol 96122227 F10.10 Recommend the patient work on abstaining from alcohol. [id number] Jose Moya MD [facility] ([facility]) [address] [place] [address] [phone] 5 05/24/2025 11:43:44 05/24/2025 13:03:26 Malignant adenomatous neoplasm 090823426 C24.0 - Await oncologica l evaluation and treatment planning at [facility]. - The stent is mitigating symptoms by relieving the bile duct obstructio n. Cholestasis 40332123 K83 .1 - Continue to monitor the effectiven ess of the bile duct stent. Health Concerns Section Related Observation LastModified by Organization Detai ls LastModified Time None Recorded Concern Status LastModified by Organization Details LastModified Time None Recorded Advance Directives Directive None Recorded Payers Insurance Date Sequence Insurance Name Policy Number Policy Henderson Covered Member ID Henderson Member ID Guarantor Name 05/24/2025 1 [place] Darci Ruiz [id number] Darci Ruiz 05/24/2025 [place] - [facility] (MEDICARE) Darci Ruiz [id number] Darci Ruiz 05/24/2025 2 A[employer] (MEDICARE REPLACEMENT/ ADVANTAGE - PPO) [id number] Darci Ruiz [id number] Darci Ruiz 05/24/2025 1 [employer]ET[employer] - PRIME (MEDICARE REPLACEMENT/ ADVANTAGE - HMO) [id number] Darci Ruiz [id number] Darci Ruiz 05/24/2025 [place] [facility] Darci Ruiz [id number] Darci Ruiz 05/24/2025 [facility] (MEDICAID HMO) Darci Ruiz [id number] Darci Ruiz 05/24/2025 2 [place] Darci Ruiz [id number] Darci Ruiz Notes Date Note Type Note Provider Name and Address Organization Details Recorded Time 03/19/2024 text/html Annual WellnessReported by PatientSocial/Behavior al HistoryFor diet and nutrition, patient reportshigh carbohydrate meals. For physical activity, patient reportsdoes not exercise on a regular basisanddecreased physical activity. For additional lifestyle factors, patient reportstobacco useandalcohol misuse.Mental Status:For depression risk, patient reportshistory of depression (pt states it peaked 3 years ago, but is improving and no longer is a problem for him).Functional AbilityFor hearing, patient reportsgetting progressively worse. For vision, patient reportsworse both distance and near (glasses). Generic HPI TemplateReported by PatientHPIFor context, (pt states he recently has been to the hospital in regards to his pancreas. he states he was diagnosed with pancreatic cancer 2 weeks ago. he states they were going to run additional tests to confirm the dx. he states he was educated on the importance of alcohol abstinence as he drinks 6+ beers per day.).Pt has had shortness of breath for 3+ years with an extensive smoking hx. Pt states his SOB has not been getting worse lately and he has been exposed to Covid. Lamberto Lyles MD [address] [place] [address], [phone], [facility] 03/19/2024 13:07:51 03/31/2024 text/html Generic HPI TemplateReported by PatientHPIFor context, (pt is here to discuss lab results. he tested hep c positive.). Lamberto Lyles MD [address] [place] [address], [phone], [facility] 03/31/2024 13:44:45 05/04/2024 text/html This is a 63-year-old gentleman that comes in today to discuss treatment for hepatitis C. The patient was found to be have C+ and had a significant viral load. The patient has a remote history of IV drug use approximately 25 years ago. Patient has undergone liver ultrasound that was normal. Patient continues to have some upper abdominal pain with nausea. The patient is currently is a heavy alcohol user. Jose Moya MD [address] [place] [address], [phone], [facility] 05/07/2024 12:27:14 05/24/2025 text/html The patient is a 64-year-old male presenting for a follow-up visit, having been recently discharged from [facility] after undergoing bile duct stent placement. He initially reported symptoms of dark urine, reduced urinary output, and nausea with vomiting. 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 Further management at [facility] is being arranged. The patient has a complex past medical history, including an uncertain past diagnosis of hepatitis C. 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 Jose Moya MD [address] [place] [address], [phone], [facility] 05/24/2025 15:19:16
--- OUTSIDE RECORDS SUMMARY | 2025-06-30 17:06 | XMS_ITS | Continuity of Care Document ---
Author Organization [facility] - Isamar Burgess, [facility] ([facility]) Address [address] [place] [address] Assessment Encounter Date Assessment Date Assessment LastModified by Organization Details LastModified Time 05/24/2025 05/24/2025 64-year-old male with a history of bile duct cancer presenting post-discharge for follow-up care. The patient underwent bile duct stent placement due to obstructive cholestasis from stenosis secondary to adenocarcinoma . He reports symptomatic relief following the intervention. Oncological management is pending further evaluation at [facility]. [email or web address] Not available 05/24/2025 15:19:03 Plan of Treatment Reminders Order Date Submit Date Provider Last Modified By Organization Details Last Modified Time Details Appointments None record ed. Lab None record ed. Referral None record ed. Procedures None record ed. Surgeries None record ed. Imaging None record ed. Medication Orders None record ed. Patient TargetsNo targets recorded. Patient Instructions Encounter Date Encounter Id Patient Instructions Last Modified By Organization Details Last Modified Time 05/24/2025 [id number] - Follow up with [facility] for further oncology evaluation. - Monitor for [...] obstruction. Emphasized the importance of follow-up with [facility] for specialized oncology care. I advised the [...] Not available 05/24/2025 12:53:24 Reason for Referral None Reported. Results Created Date Observation Date Name Description Value Unit Range Abnormal Flag Note LastModifiedBy Organization Detail LastModifiedTime 05/25/20 25 05/09/2025 upper endos copy proce dure (EGD) (PROC ) No observ ation record ed. [email or web address] Not Available 05/25 15:11:20 Result Notes None recorded. Problems Name Problem SNOMED Code Status Onset Date Resolution Date Notes Provider Name and Address Organization Details Recorded Time Dyspnea 990806847 [facility] 4 12:18:31 Chronic hepatitis C 605336176 Active 2023 [facility] 5 12:06:39 Upper abdominal pain 45805005 Active 2023 Jose Moya MD [address] [place] [address], [phone] 5, [facility] 4 17:28:51 Gastritis 6943720 Active 2023 Jose Moya MD [address] [place] [address], [phone] 5, [facility] 4 17:29:25 Harmful pattern of use of alcohol 69053554 Active 2023 Jose Moya MD [address] [place] [address], [phone] 5, [facility] 4 12:26:48 Malignant adenomatous neoplasm 701153888 Active 2024 Gaviota hua [facility] 5 12:30:36 Problem Notes None recorded. Procedures Surgical History Date Name Laterality Status Provider Name and Address Organization Details Recorded Time endoscopic retrograd e cholangiopancreatography completed Gaviotalinnea BRIGGS [facility] ApGladys 5 12:28:06 Imaging Results None recorded. Procedure [...] Available Vitals Date Recorded Body weight Body mass index (BMI) Body height Oxygen saturation Heart rate Respiratory rate Body temperature Systolic And Diastolic Provider Name and Address Organization Details Last Updated DateTime 5 10828.3 9 g 27.2 kg/m2 167.64 cm 97 % 103 /min 18 /min 97.5 [degF] 138/74 mm[Hg] Gaviota Garcia [facility], L[facility]adysC[facility]adys 11:58:40 Social History Question Answer Notes LastModified by Organizat ion Details LastModified Time Tobacco Smoking Status Current Every Day Smoker Kayli Houshilpa hua [facility], L.LGladysCGladys 03/19/2024 12:12:25 Which Illicit Or Recreational Drugs [...] Recorded Time Tdap 4 completed Alisia hua [facility], LGladysLGladysCGladys 03/26/2024 08:10:47 Td (adult), 2 Lf tetanus toxoid, preservative free, adsorbed 0 completed Alisia hua [facility], JacLGladysCGladys 03/26/2024 08:10:47 Hep A, adult 5 completed Alisia hua [facility], JacLSharona 03/26/2024 08:10:47 Past Encounters Encounter ID Performer Location Encounter Start Date Encounter Closed Date Diagnosis/Indication Diagnosis SNOMED-CT Code Diagnosis ICD10 Code Diagnosis IMO Codes Diagnosis Note [id number] Jose Moya MD [facility] ([facility]) [address] [place] [address] 05/24/2025 11:43:44 05/24/2025 13:03:26 Malignant adenomatous neoplasm 789503159 C24.0 - Await oncologica l evaluation and treatment planning at [facility]. - The stent is mitigating symptoms by relieving the bile duct obstructio n. Cholestasis 85861949 K83 .1 - Continue to monitor the effectiven ess of the bile duct stent. Health Concerns Section Related Observation LastModified by Organization Detai ls LastModified Time None Recorded Concern Status LastModified by Organization Details LastModified Time None Recorded Payers Encounter Date Sequence Insurance Name Policy Number Policy Henderson Covered Member ID Henderson Member ID Guarantor Name 05/24/2025 1 [employer] - PRIME (MEDICARE REPLACEMENT/ ADVANTAGE - HMO) [id number] Darci Ruiz [id number] Darci Ruiz 05/24/2025 2 [place] Darci Ruiz [id number] Darci Ruiz Notes Date Note Type Note Provider Name and Address Organization Details Recorded Time 05/24/2025 text/html The patient is a 64-year-old male presenting for a follow-up visit, having been recently discharged from [facility] after undergoing bile duct stent placement. He initially reported symptoms of dark urine, reduced urinary output, and nausea with vomiting. 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 Further management at [facility] is being arranged. The patient has a complex past medical history, including an uncertain past diagnosis of hepatitis C. 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 Jose Moya MD [address] [place], [phone], [facility], LGladysLSharona 05/24/2025 15:19:16
[2025-06-30 17:14] LABS: Hematocrit 48.1 % (37-53); Hemoglobin 16.60 g/dL (11.27-16.99); Mean Corpuscular HGB Conc 34.5 g/dL (30-55); Mean Corpuscular Hemoglobin 32.7 pg (27-33); Mean Corpuscular Volume 94.7 fl (82-101); Nucleated Red Blood Cells % 0 %; Platelet Count 206 10^3/cmm (157-399); Red Blood Count 5.08 10^6/uL (3.85-5.65); White Blood Count 6.35 10^3/uL (3.29-11.43)
[2025-06-30] MEDS: labetalol 5 mg/mL SDV 20mL 10 MG IVP (17:15)
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
--- NOTE | 2025-06-30 17:16 | CTR_ITS ---
PROCEDURE INFORMATION: Exam: CTA Head With Contrast, Arteriography Exam date and time: 06/30/2025 5:45 PM Age: 64 years old Clinical indication: Stroke-like symptoms; Altered mental status/memory loss; Additional info: Acute CVA TECHNIQUE: Imaging protocol: Computed tomographic angiography of the head with contrast. Exam focused on the arteries. 3D rendering (Not supervised by radiologist): MIP and/or 3D reconstructed images were created by the technologist. Radiation optimization: All CT scans at this facility use at least one of these dose optimization techniques: automated exposure control; mA and/or kV adjustment per patient size (includes targeted exams where dose is matched to clinical indication); or iterative reconstruction. Contrast material: [id number]; Contrast volume: 100 ml; Contrast route: INTRAVENOUS (IV); COMPARISON: CT head thrombolytic [id number] 06/30/2025 5:02 PM RADIATION DOSE METRICS: Total DLP (mGy-cm): 498.71 FINDINGS: ANTERIOR CIRCULATION: Right internal carotid artery: There is some focal atherosclerotic calcification and mild to moderate stenosis right cavernous carotid artery. Right middle cerebral artery: No occlusion or significant stenosis. No aneurysm. Right anterior cerebral artery: There is a fenestrated distal right A1 anterior cerebral artery segment. This is a developmental variant. Left internal carotid artery: There is some atherosclerotic plaque and moderate stenosis of the proximal left cavernous carotid artery. Left middle cerebral artery: No occlusion or significant stenosis. No aneurysm. Left anterior cerebral artery: No occlusion or significant stenosis. No aneurysm. POSTERIOR CIRCULATION: Right vertebral artery: No occlusion or significant stenosis. No aneurysm. Left vertebral artery: No occlusion or significant stenosis. No aneurysm. Basilar artery: No occlusion or significant stenosis. No aneurysm. Right posterior cerebral artery: There is origin of the right posterior cerebral artery. There is no stenosis or occlusion. Left posterior cerebral artery: No occlusion or significant stenosis. No aneurysm. Brain: No definite mass, mass effect, or midline shift. Cerebral ventricles: No ventriculomegaly. Bones/joints: Unremarkable. No acute fracture. Soft tissues: Unremarkable. PROCEDURE INFORMATION: Exam: CTA Neck With Contrast Exam date and time: 06/30/2025 5:45 PM Age: 64 years old Clinical indication: Stroke-like symptoms; Altered mental status/memory loss; Additional info: Acute CVA TECHNIQUE: Imaging protocol: Computed tomographic angiography of the neck with contrast. Exam focused on the cervical segments of the vasculature. 3D rendering (Not supervised by radiologist): MIP and/or 3D reconstructed images were created by the technologist. Radiation optimization: All CT scans at this facility use at least one of these dose optimization techniques: automated exposure control; mA and/or kV adjustment per patient size (includes targeted exams where dose is matched to clinical indication); or iterative reconstruction. Contrast material: [id number]; Contrast volume: 100 ml; Contrast route: INTRAVENOUS (IV); COMPARISON: CT angio chest PE prot [id number] 08/17/2024 2:26 AM RADIATION DOSE METRICS: Total DLP (mGy-cm): 498.71 FINDINGS: Right common carotid artery: No stenosis. No dissection or occlusion. Right internal carotid artery: There is mild atherosclerotic plaque proximal right internal carotid artery but without stenosis as measured according to the NASCET criteria. Right external carotid artery: No occlusion or stenosis of the origin. Left common carotid artery: No stenosis. No dissection or occlusion. Left internal carotid artery: There is some mild atherosclerotic plaque and calcification proximal left internal carotid artery but without stenosis as measured according to the NASCET criteria. Left external carotid artery: No occlusion or stenosis of the origin. Right vertebral artery: Right vertebral artery is dominant. There is no evidence of stenosis, occlusion or dissection. Left vertebral artery: Left vertebral artery is congenitally small. Left vertebral artery originates directly from the aortic arch which is a developmental variation. Brachiocephalic artery: There is some atherosclerotic calcification and mild to moderate stenosis in the mid right brachiocephalic artery. Soft tissues: Normal. No significant soft tissue swelling. Bones/joints: No acute fracture. CT/CT angio headne* [id number] IMPRESSION: There is no intracranial large vessel occlusion IMPRESSION: There is no evidence for significant stenosis or occlusion in the carotid or vertebral arteries on either side of the neck. REFERENCES: NASCET CRITERIA. The degree of stenosis in the cervical segment of the internal carotid artery is based on NASCET criteria. Normal is no stenosis. Mild is less than 50% stenosis. Moderate is 50-69% stenosis. Severe is 70% to 99% stenosis. Total occlusion is no detectable patent lumen.
--- NOTE | 2025-06-30 17:17 | ECG_ITS ---
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 Measurements Intervals [place] Rate: 73 P: 81 [place]: 140 QRS: 27 QRSD: 82 T: 64 QT: 368 QTc: 407 Interpretive Statements SINUS RHYTHM Compared to ECG 03/12/2024 04:50:01 Sinus arrhythmia no longer present Electronically Signed On 06-30-2025 23:27:15 CUT OUT STITCHER by Navjot Smith M.D. [email or web address]
[2025-06-30 17:28] LABS: INR 0.92 (0.8-1.2); Prothrombin Time 13.00 SECONDS (12.1-14.9)
[2025-06-30 17:33] LABS: Partial Thromboplastin Time 31.3 SECONDS (23.9-36.7)
[2025-06-30 17:34] LABS: Alanine Aminotransferase 46 U/L (0-41); Albumin Level 4.6 g/dL (3.5-5.2); Alkaline Phosphatase 90 U/L (40-130); Anion Gap 14.6 (5-19); Aspartate Amino Transferase 43 U/L (0-40); Blood Urea Nitrogen 12 mg/dL (8-23); Calcium 9.5 mg/dL (8.5-10.5); Carbon Dioxide 26 mmol/L (22-29); Chloride 104 mmol/L (98-107); Globulin 3.5 g/dL (1.3-4.6); Glucose 89 mg/dL (65-115); Osmolality Calculated 289 mOsm/kg (285-295); Potassium 4.6 mmol/L (3.5-5.1); Sodium 140 mmol/L (136-145); Total Protein 8.1 g/dL (6.6-8.7)
[2025-06-30] MEDS: iohexol 350 mg/mL 500 mL Btl (per mL) IV (17:48)
[2025-06-30 18:38] LABS: Add Urine Microscopic? NO
[2025-06-30 18:42] LABS: Glucose Urine UA Negative (Normal); Nitrate Urine Negative (Negative); Specific Gravity, Urine 1.028 (1.005-1.030)
[2025-06-30 18:51] LABS: PCP Screen Urine Negative (Negative)
[2025-06-30 18:52] LABS: Charge for UA Resulting for Rev
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
[2025-06-30] MEDS: MELATONIN 3 MG TABLET PO (22:55)
[2025-07-01] VITALS (13 sets, daily range): BP systolic 158–182; BP diastolic 80–91; PULSE 61–82; RESP 16–18; TEMP 36.3–37.1; O2SAT 94–96
[2025-07-01 03:12] LABS: Thyroid Stimulating Hormone 3.80 uIU/mL (0.27-4.20); Vitamin B12 382 pg/mL (232-1245)
[2025-07-01 06:57] LABS: Hematocrit 41.5 % (37-53); Hemoglobin 14.40 g/dL (11.27-16.99); Mean Corpuscular HGB Conc 34.7 g/dL (30-55); Mean Corpuscular Hemoglobin 33.6 pg (27-33); Mean Corpuscular Volume 96.7 fl (82-101); Nucleated Red Blood Cells % 0 %; Platelet Count 182 10^3/cmm (157-399); Red Blood Count 4.29 10^6/uL (3.85-5.65); White Blood Count 6.70 10^3/uL (3.29-11.43)
[2025-07-01 07:07] LABS: Anion Gap 13.1 (5-19); Blood Urea Nitrogen 13 mg/dL (8-23); Calcium 8.9 mg/dL (8.5-10.5); Carbon Dioxide 24 mmol/L (22-29); Chloride 104 mmol/L (98-107); Glucose 112 mg/dL (65-115); Osmolality Calculated 285 mOsm/kg (285-295); Potassium 4.1 mmol/L (3.5-5.1); Sodium 137 mmol/L (136-145)
--- NOTE | 2025-07-01 08:54 | PC.PHAR ---
Pt states he has several inhalers but does not use them. Pt states he is noncompliant on taking his blood pressure medication, also.
--- NOTE | 2025-07-01 14:01 | P.PN_ITS ---
Documented by User: Cecilia Hines NP 07/01/25 18:46 Subjective 2 Subjective: Patient sitting up on the side of the bed, denies pain at this time. Friend noted to be sitting at bedside visiting during my evaluation. Patient continues to complain of double vision. He states he worked with physical therapy today and was able to walk with an eye patch in place with the assistance of a walker. He reports that with the eye patch off he is very unsteady and worries about falling down. Vitals/I&O/Wt Last Vital Signs Temp 97.7 F 07/01/25 13:00 Pulse 82 07/01/25 13:00 Resp 16 07/01/25 13:00 BP 160/87 07/01/25 13:00 Pulse Ox 95 07/01/25 12:20 O2 Del Method Room Air 07/01/25 12:20 06/30/25 07/01/25 07/01/25 22:59 06:59 14:59 Intake Total 240 / 240 960 / 960 Balance 240 / 240 960 / 960 Weight last 48 hrs Weight 78.557 kg Weight 78.67 kg Physical Exam 2 Narrative: General: A&Ox4 ,sitting up on side of the bed, on RA. HEENT: Pupils unequal, right pupil unreactive. Double vision. Cardio: NSR, normal S1-S2 w/o any murmurs, rubs, or gallops and JVD normal Respiratory: Clear to auscultation w/o any wheezes, stridor, rhonchi GI: Abd soft, non-tender, non-distended, normo-active bowel sounds present Neuro: Moves all extremities, Normal speech Behavior: Appropriate and cooperative Extremities: Adequate palpable pulses. No clubbing, cyanosis or edema, Full ROM Data 07/01/25 06:37 07/01/25 06:37 Other Labs: 06/30: Head/Neck CTA: reviewed and reports as follows: There is no intracranial large vessel occlusion. 06/30: Head CT: reviewed and reports as follows: No acute intracranial findings. A&P Assessment and plan 1. Double vision: 2. Generalized weakness: 3. Falls: Plan: Double Vision Generalized Weakness Fall Pt continue to complain of double vision 07/01 r/o CVA. Imaging as above. No plan to proceed w/ MRI as per Dr. Mcdaniel's recommendations as it would not change plan of care. Continuous cardiac monitoring Fall precautions Aspiration precautions HOB elevation NIHSS score q12hr Dysphasia screening High fall risk, Fall precautions PT/OT HH referral order for DC Plans for outpatient MRI with contrast and to follow-up with outpatient neurology HTN Start home medication metoprolol 25mg PO BID Hx Major Depressive Disorder Patient reports depression Dr. Romero's consulted 06/30, recommendations appreciated. Polysubstance Abuse Alcohol Abuse Tobacco Use Disorder Marijuana Abuse Patient denies nicotine patches at this time. CODE STATUS: Full code VTE ppx: Lovenox subq PDMP PDMP Reviewed: Not Reviewed Attestations 2 Medical Necessity Statement*: Patient will require less than 2 midnights to manage double vision, r/o CVA, increased weakness, multiple falls Coding Level of Care Code 74111 Diagnoses Double vision H53.2 Generalized weakness R53.1 Falls R29.6 Documented by User: Imani Robbins, TEACHER VOCATIONAL TRAINING, FASHION CONSULTANT 07/01/25 18:57 Subjective 2 Subjective: Patient sitting up on the side of the bed, denies pain at this time. Friend noted to be sitting at bedside visiting during my evaluation. Patient continues to complain of double vision. He states he worked with physical therapy today and was able to walk with an eye patch in place with the assistance of a walker. He reports that with the eye patch off he is very unsteady and worries about falling down. Spoke with Dr. Mcdaniel with neurology who had advised not to order MRI in the inpatient setting as it would not add to our decision-making acumen. She did advise that an MRI in the outpatient setting would be appropriate. Appreciate her expertise and recommendations. Data 07/01/25 06:37 07/01/25 06:37 A&P Assessment and plan 1. Double vision: 2. Generalized weakness: 3. Falls: Plan: Double Vision Generalized Weakness Fall Pt continue to complain of double vision 07/01 r/o CVA. Imaging as above. No plan to proceed w/ MRI as per Dr. Mcdaniel's recommendations as it would not change plan of care. Continuous cardiac monitoring Syphilis r/o Fall precautions Aspiration precautions HOB elevation NIHSS score q12hr Dysphasia screening High fall risk, Fall precautions PT/OT HH referral order for DC Plans for outpatient MRI with contrast and to follow-up with outpatient neurology HTN Start home medication metoprolol 25mg PO BID Hx Major Depressive Disorder Patient reports depression Dr. Romero's consulted 06/30, recommendations appreciated. Polysubstance Abuse Alcohol Abuse Tobacco Use Disorder Marijuana Abuse Patient denies nicotine patches at this time. CODE STATUS: Full code VTE ppx: Lovenox subq PDMP PDMP Reviewed: Not Reviewed Attestations 2 Medical Necessity Statement*: Patient will require less than 2 midnights to manage double vision, r/o CVA, increased weakness, multiple falls. Diagnoses Double vision H53.2 Generalized weakness R53.1 Falls R29.6
[2025-07-01] MEDS: MELATONIN 3 MG TABLET PO (21:27)
[2025-07-01] MEDS: oxyCODONE 5 mg IR Tab/Cap PO (21:27)
[2025-07-01 21:28] LABS: Rapid Plasma Reagin Syphilis Nonreactive (Nonreactive)
[2025-07-02] VITALS (10 sets, daily range): BP systolic 165–189; BP diastolic 84–96; PULSE 60–74; RESP 16–17; TEMP 36.4–36.9; O2SAT 93–96
[2025-07-02] MEDS: hyDRALAzine 20 mg/mL INJ 1 mL 10 MG IVP (05:24)
[2025-07-02] MEDS: oxyCODONE 5 mg IR Tab/Cap PO (07:34)
--- NOTE | 2025-07-02 07:36 | PC.NURSE ---
0600 had long conversation w pt; pt had many questions re: his cancer, how bad is it, he feels better and how bad is chemo . Tried to answer many of his questions but refered pt questions to be answered to his physician. He has a relative in [place] that has invited him for him to do fun vacation. Pt was happy to talk about it. 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 Tried give pt basic information. I can tell this is really stressing pt. He said he still drinks beers apx 4-5 plus everyday. pt is high risk for ETOH withdrawal. Last night MD aware re: increasing BP. Pt verbalized understandingof education given. AM nurse aware of trending up BP. per am nurse that pt 's passed, pt not coping well and depressed. Denies SI or HI.
--- NOTE | 2025-07-02 08:14 | PM.DCS ---
Discharge Providers Date of Admission: 06/30/25 20:27 Date of Discharge: July 02, 2025 Attending Provider at Admission: Cristofer King MD Attending Provider at Discharge: Soheila Palmer NP Primary Care Provider: Lamberto Lyles MD Diagnoses at Discharge Discharge Diagnosis 1. Double vision: 2. Generalized weakness: 3. 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 He was a stroke alert in the ED. On questioning, he says he took oxycodone and some alcohol at 2AM the day of presentation but woke up at 0830 today with double vision that is eliminated when covered either eye. He also reports frequent falls due to dizziness with walking. He did call his PCP today who advised him to see an dispute resolution specialist which he did. While there, they were concerned for new stroke and so EMS was called and he was delivered to our facility for further evaluation and management. He endorses low levels of strength in his legs. No upper limb concerns. No numbness of tingling or headaches. No chest pain or palpitations. Hospital Course Hospital Course Double Vision Generalized Weakness Falls TIA Pt continue to complain of double vision 07/01 r/o CVA. CT with no intracranial large vessel occlusion, no acute intracranial findings No plan to proceed w/ MRI as per Dr. Mcdaniel's recommendations as it would not change plan of care. Lipid panel completed Continue plavix, asa, statin PT/OT with recommendations for HH and discharging with walker HH referral ordered, appreciate case management in discharge planning Plans for outpatient MRI with contrast and to follow-up with outpatient neurology Recommended outpatient ECHO HTN Continue home medication metoprolol 25mg PO BID Hx Major Depressive Disorder Patient reports depression Dr. Romero's consulted 06/30, [facility] Polysubstance Abuse Alcohol Abuse Tobacco Use Disorder Marijuana Abuse Patient denies nicotine patches at this time. Carcinoma with concern for METS (States colon, small intestine, stomach, and liver) - Planned further outpatient work-up next week, encourage patient to keep his scheduled appointments on 07/07 Discharge: No acute CVA found, TIA - will follow-up outpatient with neurologist and have outpatient MRI. Patient discharges in stable condition to have home health at discharge and is provided a walker. Recommend patient have outpatient echo. Patient to continue medications as previously prescribed. Patient advised to follow-up with primary care provider in 1 to 2 days. All questions and concerns addressed the patient prior to discharge. Physical Exam Narrative: General: A&Ox4 , no apparent distress. HEENT: Pupils unequal, right pupil unreactive. Double vision. Cardio: NSR, normal S1-S2 w/o any murmurs, rubs, or gallops and JVD normal Respiratory: Clear to auscultation w/o any wheezes, stridor, rhonchi GI: Abd soft, non-tender, non-distended, normo-active bowel sounds present Neuro: Moves all extremities, Normal speech Behavior: Appropriate and cooperative Extremities: Adequate palpable pulses. No clubbing, cyanosis or edema, Full ROM Discharge Data Studies Completed and Pending Completed Studies During Hospitalization Category Date Time Status CT head thrombolytic 22352 Stat Cat Scan 06/30/25 16:57 Completed CTA head neck [CT angio headneck* [id number]] Stat Cat Scan 06/30/25 17:16 Completed Radiology Impressions Head CT 06/30/25 16:57 IMPRESSION: No acute intracranial findings. ASSESSMENT: ASPECTS ([place] Stroke Program Early CT Score) is 10. ADDENDUM: 06/30/25 [id number] Addendum: THIS REPORT CONTAINS FINDINGS THAT MAY BE CRITICAL TO PATIENT CARE. The findings were verbally communicated via telephone conference with CORRIE SANDY at 5:18 PM SALVAGER on 06/30/2025. The findings were acknowledged and understood. Head/Neck CTA 06/30/25 17:16 IMPRESSION: There is no intracranial large vessel occlusion IMPRESSION: There is no evidence for significant stenosis or occlusion in the carotid or vertebral arteries on either side of the neck. REFERENCES: NASCET CRITERIA. The degree of stenosis in the cervical segment of the internal carotid artery is based on NASCET criteria. Normal is no stenosis. Mild is less than 50% stenosis. Moderate is 50-69% stenosis. Severe is 70% to 99% stenosis. Total occlusion is no detectable patent lumen. ADDENDUM: 06/30/25 1205 Addendum: THIS REPORT CONTAINS FINDINGS THAT MAY BE CRITICAL TO PATIENT CARE. The findings were verbally communicated via telephone conference with CORRIE SANDY at 6:34 PM SALVAGER on 06/30/2025. The findings were acknowledged and understood. Laboratory Results WBC 6.70 10^3/uL (3.29-11.43) 07/01/25 06:37 RBC 4.29 10^6/uL (3.85-5.65) 07/01/25 06:37 Hgb 14.40 g/dL (11.27-16.99) 07/01/25 06:37 Hct 41.5 % (37-53) 07/01/25 06:37 MCV 96.7 fl (82-101) 07/01/25 06:37 MCH 33.6 pg (27-33) H 07/01/25 06:37 MCHC 34.7 g/dL (30-55) 07/01/25 06:37 RDW 12.9 % (12.1-15.1) 07/01/25 06:37 Plt Count 182 10^3/cmm (157-399) 07/01/25 06:37 MPV 9.3 fL (7.4-10.4) 07/01/25 06:37 Neut % (Auto) 52.2 % 07/01/25 06:37 Lymph % (Auto) 29.0 % 07/01/25 06:37 [place] % (Auto) 9.9 % 07/01/25 06:37 Eos % (Auto) 7.5 % 07/01/25 06:37 Baso % (Auto) 1.0 % 07/01/25 06:37 Neut # (Auto) 3.50 10^3/uL (1.8-7.7) 07/01/25 06:37 Lymph # (Auto) 1.9 10^3/uL (0.8-4.8) 07/01/25 06:37 [place] # (Auto) 0.7 10^3/uL (0.2-0.9) 07/01/25 06:37 Eos # (Auto) 0.5 10^3/uL (0.0-0.8) 07/01/25 06:37 Baso # (Auto) 0.1 10^3/uL (0.0-0.1) 07/01/25 06:37 Nucleated RBC % (auto) 0 % 07/01/25 06:37 Nucleated RBCs # 0.0 /100WBC 07/01/25 06:37 PT 13.00 SECONDS (12.1-14.9) 06/30/25 17:04 INR 0.92 (0.8-1.2) 06/30/25 17:04 APTT 31.3 SECONDS (23.9-36.7) 06/30/25 17:04 Sodium 137 mmol/L (136-145) 07/01/25 06:37 Potassium 4.1 mmol/L (3.5-5.1) 07/01/25 06:37 Chloride 104 mmol/L (98-107) 07/01/25 06:37 Carbon Dioxide 24 mmol/L (22-29) 07/01/25 06:37 Anion Gap 13.1 (5-19) 07/01/25 06:37 BUN 13 mg/dL (8-23) 07/01/25 06:37 Creatinine 0.7 mg/dL (0.7-1.2) 07/01/25 06:37 GFR Calculation 112.8 mL/min (90-130) 07/01/25 06:37 Glucose 112 mg/dL (65-115) 07/01/25 06:37 POC Glucose 92 mg/dL (70-110) 06/30/25 17:09 Calculated Osmolality 285 mOsm/kg (285-295) 07/01/25 06:37 Calcium 8.9 mg/dL (8.5-10.5) 07/01/25 06:37 Total Bilirubin 1.0 mg/dL (0.15-1.2) 06/30/25 17:04 AST 43 U/L (0-40) H 06/30/25 17:04 ALT 46 U/L (0-41) H 06/30/25 17:04 Alkaline Phosphatase 90 U/L (40-130) 06/30/25 17:04 Total Protein 8.1 g/dL (6.6-8.7) 06/30/25 17:04 Albumin 4.6 g/dL (3.5-5.2) 06/30/25 17:04 Globulin 3.5 g/dL (1.3-4.6) 06/30/25 17:04 Vitamin B12 382 pg/mL (232-1245) 06/30/25 17:04 Folate 9.9 ng/mL (4.5-32.2) 06/30/25 17:04 TSH 3.80 uIU/mL (0.27-4.20) 06/30/25 17:04 Urine Color Yellow (Yellow) 06/30/25 18:25 Urine Appearance Clear (CLEAR) 06/30/25 18:25 Urine pH 6.0 (5-7) 06/30/25 18:25 Ur Specific [place] 1.028 (1.005-1.030) 06/30/25 18:25 Urine Protein Negative (Negative) 06/30/25 18:25 Urine Glucose (UA) Negative (Normal) 06/30/25 18: Urine Ketones Negative (Negative) 06/30/25 18:25 Urine Blood Negative (Negative) 06/30/25 18:25 Urine Nitrate Negative (Negative) 06/30/25 18:25 Urine Bilirubin Negative (Negative) 06/30/25 18:25 Urine Urobilinogen 1.0 mg/dL (Negative) 06/30/25 18:25 Ur Leukocyte Esterase Negative (Negative) 06/30/25 18:25 Amorphous Sediment Not Reportable 06/30/25 18:25 Urine Opiates Screen Negative ng/mL (Negative) 06/30/25 18:25 Ur Barbiturates Screen Negative ng/mL (Negative) 06/30/25 18:25 Ur Phencyclidine Scrn Negative ng/mL (Negative) 06/30/25 18:25 Ur Amphetamines Screen Negative ng/mL (Negative) 06/30/25 18:25 U Benzodiazepines Scrn Negative ng/mL (Negative) 06/30/25 18:25 Urine Cocaine Screen Negative ng/mL (Negative) 06/30/25 18:25 U Marijuana (THC) Screen Positive ng/mL (Negative) H 06/30/25 18:25 RPR Nonreactive (Nonreactive) 07/01/25 06:37 Vitals Last Vital Signs Temp 98.4 F 07/02/25 07:43 Pulse 60 07/02/25 07:43 Resp 16 07/02/25 07:43 BP 165/84 07/02/25 07:43 Pulse Ox 96 07/02/25 07:43 O2 Del Method Room Air 07/02/25 01:00 Discharge Plan Discharge Patient Disposition: Home Health Service Condition: Stable Prescriptions: New atorvastatin 40 mg Tablet 40 mg PO BEDTIME 90 Days Qty: 90 0RF clopidogrel 75 mg Tablet 75 mg PO DAILY 90 Days Qty: 90 0RF aspirin 81 mg Tablet,Delayed Release (Dr/Ec) 81 mg PO DAILY 90 Days Qty: 90 0RF Continued albuterol sulfate 90 mcg/actuation HFA aerosol inhaler 2 inh INHALATION Q4H PRN (Reason: shortness of breath or wheezing) Qty: 18 0RF Spiriva Respimat 1.25 mcg/actuation mist 2 inh inhalation DAILY Qty: 4 0RF fluticasone propion-salmeterol 100-50 mcg/dose blister with device 1 inh INHALATION BID oxycodone 5 mg tablet 5 mg PO Q6H PRN (Reason: Pain) metoprolol tartrate 25 mg tablet 25 mg PO BID Discharge Order = DC NOW: Discharge Order (Routine); Ordered 07/02/25 Ordered By: Soheila Palmer Other Ambulatory Orders: DME: [facility] (Order) Location: None Selected Ordered By: Imani Robbins Referrals: [facility] [Outside] [facility] [Outside] Karen Mcdaniel MD [Physician, Neurology] - 08/15/25 1:00 pm Referral Note: Lamberto Lyles MD [Primary Care Provider, Family Practice] - 1-3 days Referral Note: We have notified your physician's clinic of the need for a follow-up appointment to be scheduled. If you have not heard from them within the next 2 business days, please call them directly. Discharge Diet: Cardiac Discharge Activity: Limit activity as instructed Patient Instructions: Aspirin (By mouth), Atorvastatin (By mouth), Clopidogrel (By mouth), Ischemic Stroke (DC), Opioid Safety, Patient Portal & Rickey Instructions Discharge Attestations Time Spent in Discharge Care*: greater than 30 min Quality Metrics Clinical Quality Measures [ No reported AMI, CVA or VTE this stay] Coding Level of Care Code 91569 Diagnoses Double vision H53.2 Generalized weakness R53.1 Falls R29.6
[2025-07-02 11:38] LABS: Cholesterol 130 mg/dL (0-200); HDL Cholesterol 37 mg/dL (60-100); Triglycerides 47 mg/dL (0-150)
== END 2025-07-02 12:15 | disposition home health service (06) ==
LOC: ER 20:58 → MEDSURG 22:15
PROVIDERS: Clinical Nurse Specialist Acute Care; Admitting Provider Family Medicine; Emergency Provider Family Medicine; PCP Family Medicine; Visit Provider Registered Nurse
DX: H53.2 Diplopia (principal); R53.1 Weakness; R29.6 Repeated falls; Z79.891 Long term (current) use of opiate analgesic; I10 Essential (primary) hypertension; F32.9 Major depressive disorder, single episode, unspecified; F17.200 Nicotine dependence, unspecified, uncomplicated; F12.11 Cannabis abuse, in remission
CPT/HCPCS: 36415; 36416; 70450; 70496; 70498; 80048; 80053; 80061; 80306; 81003; 82607; 82746; 82962; 84443; 85025; 85610; 85730; 86592; 93005; 94640; 96361; 96372; 96374; 96375; 97116; 97162; 97165; 97530; 99285; G0378; J0360; J1650; J3490; J7613; J7626; J7644; J9999

== ENCOUNTER 2025-07-20 15:06 | Oncology outpatient (recurring) (ONCR) | payer MEDICARE, MEDICAID, SELFPAY | END 2025-07-28 23:59 | disposition home or self-care (01) | PROVIDERS: PCP Family Medicine; Visit Provider Internal Medicine Medical Oncology | DX: C22.1 Intrahepatic bile duct carcinoma (principal); D3A.8 Other benign neuroendocrine tumors; R03.0 Elevated blood-pressure reading, without diagnosis of hypertension; F32.A Depression, unspecified; F17.200 Nicotine dependence, unspecified, uncomplicated; Z79.899 Other long term (current) drug therapy | CPT/HCPCS: 99205 ==